=== PATIENT | male | born 1970 | race Caucasian/White ===

== ENCOUNTER 2018-07-17 11:54 | Outpatient (CLI) | payer MEDICARE, SELFPAY ==
[2018-07-17 12:45] LABS: VALPROIC ACID 74.3 ug/mL (50-100)
[2018-07-17 15:11] LABS: Abs Immature Grans 0.04 k/cumm (0.0-0.09); HGB 16.8 g/dL (13.5-17.5); Mean Corpuscular Hemoglobin 31.2 pg (27.0-33.0); Mean Corpuscular Volume 89.2 fL (80-95); Mean Platelet Volume 10.9 fL (8.0-11.0); Platelet Count 285 x1000/uL (130-400); RBC 5.38 m/cumm (4.50-6.00); RBC Distribution Width 14.1 % (11.8-14.1); White Blood Cell Count 17.41 k/cumm (4.4-10.8)
[2018-07-17 15:30] LABS: ALT 26 U/L (12-78); AST 20 U/L (15-37); Alkaline Phosphatase 133 U/L (46-116); Bilirubin, Direct 0.11 mg/dL (0.00-0.20); Bilirubin, Total 0.6 mg/dL (0.2-1.0); Total Protein 7.7 g/dL (6.4-8.2)
[2018-07-17 15:37] LABS: Absolute Eosinophil Count 0.87 k/cumm (0.0-0.7); Absolute Monocyte Count 1.39 k/cumm (0.11-0.7); Absolute Neutrophil Count 11.14 k/cumm (1.2-6.7); Atypical Lymphocytes % 3; Diff Comment Manual Differential; RBC Morphology Normal
== END 2018-07-17 12:14 ==
PROVIDERS: PCP General Practice; Visit Provider Nurse Practitioner Psychiatric/Mental Health
DX: F10.21 Alcohol dependence, in remission (principal); Z51.81 Encounter for therapeutic drug level monitoring; Z79.899 Other long term (current) drug therapy
CPT/HCPCS: 36415; 80076; 80164; 85025

== ENCOUNTER 2018-07-30 16:40 | Inpatient (IN) | payer MEDICARE, SELFPAY ==
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
[2018-07-30 17:19] VITALS: BP 156/116; PULSE 126; RESP 22; TEMP 37.1; O2SAT 100
[2018-07-30 17:27] LABS: Abs Immature Grans 0.05 k/cumm (0.0-0.09); Absolute Basophil Count 0.07 k/cumm (0.0-0.2); Absolute Eosinophil Count 0.17 k/cumm (0.0-0.7); Absolute Lymphocyte Count 3.01 k/cumm (1.2-3.4); Absolute Monocyte Count 1.51 k/cumm (0.11-0.7); Basophils % 0.5; Eosinophils % 1.2; HCT 51.3 % (40.0-50.0); HGB 18.4 g/dL (13.5-17.5); Immature Grans % 0.4; Lymphocytes % 21.7; Mean Corp. HGB Concentration 35.9 g/dL (32.0-36.0); Mean Corpuscular Hemoglobin 31.1 pg (27.0-33.0); Mean Corpuscular Volume 86.7 fL (80-95); Mean Platelet Volume 10.5 fL (8.0-11.0); Monocytes % 10.9; Neutrophils % 65.3; Platelet Count 399 x1000/uL (130-400); RBC 5.92 m/cumm (4.50-6.00); RBC Distribution Width 13.8 % (11.8-14.1); White Blood Cell Count 13.89 k/cumm (4.4-10.8)
[2018-07-30 17:35] LABS: Absolute Neutrophil Count 9.07 k/cumm (1.2-6.7)
[2018-07-30 17:36] LABS: Diff Comment Diff Reviewed
[2018-07-30 17:37] LABS: VALPROIC ACID 26.7 ug/mL (50-100)
[2018-07-30 17:45] LABS: ALT 25 U/L (12-78); AST 23 U/L (15-37); Albumin 4.7 g/dL (3.4-5.0); Alkaline Phosphatase 126 U/L (46-116); Anion Gap 12.2 mmol/L (3-11); BUN 11 mg/dL (7-18); Bilirubin, Total 0.7 mg/dL (0.2-1.0); CO2 27.8 mmol/L (21.0-32.0); CREATININE 1.09 mg/dL (0.70-1.30); Calcium 10.4 mg/dL (8.5-10.1); Chloride 97 mmol/L (98-107); Glucose 128 mg/dL (70-100); Potassium 3.7 mmol/L (3.5-5.1); Sodium 137 mmol/L (136-145); TSH (W/Ref FT4) 1.82 uIU/mL (0.358-3.74); Total Protein 9.1 g/dL (6.4-8.2)
[2018-07-30 17:58] LABS: Salicylate 8.1 mg/dL (2.8-20.0)
[2018-07-30 18:03] LABS: ETHANOL BLOOD < 3.0 mg/dL (<3)
[2018-07-30 18:05] LABS: Acetaminophen < 2 ug/mL (10-30)
[2018-07-30] MEDS: Haloperidol 5 MG/ML VIAL (19:50)
[2018-07-30] MEDS: LORazepam 2 MG/ML VIAL (19:50)
[2018-07-30] MEDS: diphenhydrAMINE 50 MG/ML VIAL 25 MG IM (19:51)
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
[2018-07-30] MEDS: Divalproex 500 MG TABEC 1000 MG PO (20:00)
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
--- NOTE | 2018-07-31 00:21 | NUR.NOTE ---
Nursing Note: recieved report on pt about 2350 from ab avendaño
--- NOTE | 2018-07-31 07:36 | PDOC.ERCMPRO ---
Care Management Progress Note [phone] requested phone use. Discussed with Dr. Alex Baca and he is in agreement with patient having phone to call girlfriend and son. New Care plan distributed to appropriate care team. At this time, waiting on [facility] for placement. SAFETY PLAN: Emergency Department, BS 07/31/18 at 0730 1. Will remain on suicide precautions. In Paper Scrubs. 2. Will remain in room under direct supervision of one-on-one staff at all times provided by CPSO, NANCY, COUNTER CASER insemination worker. 3. May have paper cups, plates, finger foods. No spoon at this time. 4. Follow [facility] Management of the Admitted Behavioral Health Patient policy. 5. Comfort bath system only. 6. No personal belongings 7. No visitors at this time. 8. No activities at this time but may have coloring, paper, crayons at the discretion of the clinical staff.. 9. Bathroom privileges may go to the bathroom with staff escort. 10. Will remain in the ED as there are no beds available at this time. Housekeeping Supervisor will determine transfer to / based on bed availability and staffing. 11. Patient may have phone privileges to call girlfriend and son. 12. Due to INVOLUNTARY status, the patient must remain in the hospital. Second Certification will be scheduled with [facility] Frontline Cosmetic Sales Consultant will continue seeking placement. Please contact the Bedspread Inspector Car Lubricator ([phone]) and [facility] Cosmetic Sales Consultant ([phone]) for any needed changes in the Safety Plan. Safety plan has been provided to interdepartmental care team including Clinical Coordinator, Nursing Musculoskeletal Physician.
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
--- NOTE | 2018-07-31 10:11 | PDOC.ERCMPRO ---
Care Management Progress Note 07/31-This CM reached out to facilities for placement. [facility]ice-phone [phone] Spoke with Anne. Anne states that they have one bed on the LGBTQ Unit and is willing to accept referral. Referral faxed at 0915 this am. If they can accept patient, discussion will have to happen about [facility] being on the unit. [facility] -[phone], Spoke with Alhaji. Alhaji states there are no beds available. [phone], spoke with Matthias, no beds today. [phone], Spoke with Jeanette, no beds today. [phone], spoke with Allyson, no beds and their ED is full. [phone], Spoke with Kelsea, no beds. [facility] is here on EE status. Unclear of time of second cert. Dr. Lambert aware of the above.
--- NOTE | 2018-07-31 10:14 | CMPROGNOTE_ITS ---
Care Management Progress Note 07/31-This CM reached out to facilities for placement. Candice-phone [phone] Spoke with Anne. Anne states that they have one bed on the LGBTQ Unit and is willing to accept referral. Referral faxed at 0915 this am. If they can accept patient, discussion will have to happen about [facility] being on the unit. [facility] -[phone], Spoke with Alhaji. Alhaji states there are no beds available. [phone], spoke with Matthias, no beds today. [phone], Spoke with Jeanette, no beds today. [phone], spoke with Allyson, no beds and their ED is full. [phone], Spoke with Kelsea, no beds. [facility] is here on EE status. Unclear of time of second cert. Dr. Lambert aware of the above.
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
[2018-07-31] MEDS: METHYLPHENIDATE 5 MG TAB PO (11:39)
[2018-07-31] MEDS: Nicotine 14 MG/24 HR PATCH TD (12:09)
--- NOTE | 2018-07-31 15:37 | PDOC.ERCMPRO ---
- If Service Date Differs Date of service: 07/31/18 Time of Service: 15:38 Care Management Progress Note S/O:CM met with Preston at the bedside he is alert and restless during his encounter with CM. Per his primary nurse he has been more escalated since phone interaction this afternoon with significant other and DCF. Preston remains in the ED as an involuntary patient at this time. He was agitated during the second certification. During the interaction with psychiatrist Preston often would not answer the questions, or answered inappropriately. He refused to share information related to his mental health or medications with psychiatrist. Preston states that his SO is a epic kaleidoscope analyst caller and that he did not do anything wrong. He states he wants to return home, and that his significant other is waiting for him. He states several times that he wants to hug his son. Preston was notified that the second cert was approved and that he will remain at [facility] in the ED. Preston immediately stands up and heads toward the door in the room attempting to step out of the room. CM explained to Pt that he will need to remain in his room at this time, and reinforced safety plan with the Pt. CM met with psychiatrist over video prior to and after assessment. CM reviewed current medications with the psychiatric provider and labs. Provider reports that the patient is in need of stabilization at a psychiatric facility when a bed becomes available. Second Cert approved at this time. INVOLUNTARY FOR INPATIENT PSYCHIATRIC STABILIZATION. . EE completed and he is now on involuntary status. High risk for elopement and high risk for aggressive behaviors. Javier is unpredictable in terms of his response at this time and cannot agree to inpatient psychiatric treatment but is at risk for harming himself and others. The following have contributed to the updated safety plan: Alistair Lozano RN Experimental Mechanic, Saloni Maguire RN primary, , and Dhara COOK crisis, and this feature writer. Date and time:07/31/18 1730 Safety plan has been established with care team, to adhere to patient goals, identify restrictions based on behavioral status, address nutrition, and determine allowed personal belongings, tools for hygiene and personal care. Determine level of activity including ambulation, level of supervision, visitors, and determine privileges based on behaviors and level of engagement by pt. Otis dubose not able to participate at this time SAFETY PLAN: ED Room #5 1. Will remain on suicide precautions. In Paper Scrubs. 2. Will remain in room under direct supervision of one-on-one staff at all times provided by CPSO, NANCY, MEDICINE AND HEALTH SERVICE MANAGER mold making plastics sheets supervisor. 3. May have paper cups, plates, finger foods, a metal spoon may be provided and accounted for at the end of the meal. 4. Follow [facility] Management of the Admitted Behavioral Health Patient policy. 5. Comfort bath system only. 6. No personal belongings, except nicotine inhaler at the bedside. 7. No visitors at this time. 8. No activities at this time but may have coloring, paper, crayons at the discretion of the clinical staff.. 9. Bathroom privileges may go to the bathroom with staff escort. 10. Will remain in the ED. 11.No telephone at this time. In the event of an emergent phone call it will be supervised by staff. 12. Due to INVOLUNTARY status, the patient must remain in the hospital. Second Cert was completed and approved on 07/31/18. Paperwork will be faxed to [facility] ED. Candice is reviewing the referral no bed available at this time. [facility] will continue to search for placement and fax referrals to [place] facilities. Safety plan will be updated daily. Please contact sales and production manager CM and [facility] Crisis, for change in status and review of safety plan. Once a bed is available and patient is to be discharged [facility] will arranged transportation via bottle tester to receiving facility.
--- NOTE | 2018-07-31 15:44 | NUR.NOTE ---
Nursing Note: Noted patient was becoming increasingly anxious and agitated on phone. Had requested phone to call his significant other, per careplan patient was allowed phone privileges to his girlfriend. This scribe asked for the phone and it required coaxing from patient to allow me to have the phone back. Patient stated he wants to talk to you. This scribe answered the phone and the male introduced himself as a DCF employee who was investigating at the patient's home. The patient's girlfriend had been talking to the patient and became upset, handing the phone to the DCF employee. [facility] with questions regarding the situation, but this scribe informed him that no information could be given. He insisted on speaking to somebody, this scribe transferred the phone call to . MD notified, care management notified and careplan will be updated to suspend phone privileges. Patient took off his nicotine patch that had been placed on his R arm. Continues to use the nicotrol inhaler.
[2018-07-31] MEDS: Divalproex 500 MG TABEC 1000 MG PO (21:39)
[2018-07-31] MEDS: Divalproex Sodium 500 MG TAB.ER.24H 1000 MG PO (21:40)
[2018-07-31] MEDS: Mirtazapine 15 MG TAB 30 MG PO (21:40)
[2018-07-31] MEDS: QUEtiapine 100 MG TAB PO (21:48)
--- NOTE | 2018-07-31 21:54 | NUR.NOTE ---
Nursing Note: gave pt his night time meds of 1000mg of depakote, 30 mg of remeron, but he refused his 100 mg tab of seroquel, and was give 10mg cartidge of nicotine
--- NOTE | 2018-08-01 00:50 | NUR.NOTE ---
Nursing Note: gave pt a 10 mg nicotine
--- NOTE | 2018-08-01 05:46 | NUR.NOTE ---
Nursing Note: pt slept through most of the was up about 0500 and wanted coffee and a nicotrol , then asked for morning meds,
[2018-08-01] MEDS: Methylphenidate 10 MG TAB 5 MG PO (05:56)
[2018-08-01] MEDS: LORazepam 2 MG/ML VIAL (09:00)
[2018-08-01 14:24] LABS: Bilirubin Negative (Negative); Blood Negative (Negative); Clarity Clear; Glucose Negative (Negative); Ketones Trace mg/dL (Negative); Leukocyte Esterase Negative (Negative); Nitrite Negative (Negative); Specific Gravity 1.015 (1.005-1.025); Urobilinogen 0.2 EU/dL (Up TO 0.2); pH 6.5 (5-8)
[2018-08-01 14:37] LABS: *AMPHETAMINES SCREEN URINE Negative (Negative); *BARBITURATES SCREEN URINE Negative (Negative); *BENZODIAZEPINES SCREEN URINE Negative (Negative); Cannabinoids THC POSITIVE (Negative); Cocaine Screen,Urine Negative (Negative); METHADONE URINE SCREEN Negative (Negative); OPIATES URINE SCREEN Negative (Negative)
[2018-08-01] MEDS: LORazepam 1 MG TAB 2 MG PO (14:37)
[2018-08-01 14:39] LABS: Tricyclic Antidepressants Negative (Negative)
--- NOTE | 2018-08-01 14:58 | ED.GENADUL_ITS ---
Discharge Plan Disposition Patient Disposition: [facility] INPATIENT Condition: Stable Discharge Details Chief Complaint: PsychEval Clinical Impression: Psychotic episode Reason For Visit: ACUTE PSYCHOSIS Admit Date/Time: 08/02/18 18:18 Admit Provider: Rickey Barajas Attending Provider: Rickey Barajas Primary Care Provider: Rickey Sher ED Provider: Usha Bangura Discharge Data Discharge Date/Time-TO BE ENTERED AT DEPARTURE: 08/02/18 19:15 Medical Decision Making <Jamarcus Lambert DO - Last Filed: 08/03/18 14:54> The patient has been here for 48 hours. I have received him on 2 separate sinus. Multiple reassessments from mental health, including his second certification continue to recommend inpatient psychiatric hospitalization and admission. The patient has been redirectable here, but has had his doses of home medication, in addition to his doses of occasional Ativan to help settle his nerves and notable agitation. There continues to be no bed placement options available in reassessment today at noon. He is hopeful that a bed will open up on Friday. Patient will be signed out to my colleague Dr. Ramirez if new bed placement is not found. HPI <Jamarcus Lambert DO - Last Filed: 08/03/18 14:54> General Date/Time Provider Initiated Documentation: 07/30/18 16:47 . Related Data Home Medications Medication Instructions Recorded Confirmed divalproex 1,000 mg PO HS 06/07/15 08/08/16 divalproex 500 mg PO DAILY 06/07/15 08/02/18 mirtazapine [Remeron] 30 mg PO HS 06/07/15 08/02/18 Marijuana 1 ea IN DAILY 05/30/16 08/08/16 meloxicam 15 mg PO DAILY PRN PRN #30 tablet 05/30/16 08/08/16 folic acid 1 mg PO DAILY tab-cap 07/17/16 08/08/16 acetylcysteine 600 mg PO DAILY 08/08/16 08/08/16 levomefolate calcium 15 mg PO DAILY 08/08/16 08/08/16 aspirin 325 mg PO DAILY tab-cap 08/15/16 methylphenidate HCl [Ritalin] 5 mg PO BID 08/02/18 08/02/18 Previous Rx's Medication Instructions Recorded meloxicam 15 mg PO DAILY PRN PRN #30 tablet 05/30/16 Allergies Allergy/AdvReac Type Severity Reaction Status Date / Time No Known Allergies Allergy Unverified 07/30/18 17:28 General Stated Complaint: PsychEval ROSA: 2 PFSH <Jamarcus Lambert DO - Last Filed: 08/03/18 14:54> Social History Smoking/Tobacco Use Status: Never Alcohol Intake: never Drug use: Daily Substance use type: marijuana Additional Social history: unable to assess Course <Jamarcus Lambert DO - Last Filed: 08/03/18 14:54> Vital Signs Temperature 37.1 C 07/30/18 17:19 Pulse 126 H 07/30/18 17:19 Respiratory Rate 22 07/30/18 17:19 Blood Pressure 156/116 H 07/30/18 17:19 Pulse Oximetry 100 07/30/18 17:19 Temperature 37.1 C 07/30/18 17:19 Temperature Source Temporal Artery Scan 07/30/18 17:19 Pulse 126 H 07/30/18 17:19 Respiratory Rate 22 07/30/18 17:19 Respiratory Effort Non-Labored 07/30/18 17:19 Blood Pressure 156/116 H 07/30/18 17:19 Blood Pressure Position Standing 07/30/18 17:19 Pulse Oximetry 100 07/30/18 17:19 Oxygen Delivery Method Room Air 07/30/18 17:19 Oxygen Flow Rate 0 07/30/18 17:19 Pain Level 0 07/30/18 17:19 Lab/Test Results Lab/Test Results: Laboratory Tests Range/Units 07/30/18 07/30/18 07/30/18 17:19 17:19 17:19 WBC (4.4-10.8) k/cumm 13.89 H RBC (4.50-6.00) m/cumm 5.92 Hgb (13.5-17.5) g/dL 18.4 H Hct (40.0-50.0) % 51.3 H MCV (80-95) fL 86.7 MCH (27.0-33.0) pg 31.1 MCHC (32.0-36.0) g/dL 35.9 RDW (11.8-14.1) % 13.8 Plt Count (130-400) x1000/uL 399 D MPV (8.0-11.0) fL 10.5 Immature Gran % 0.4 Neutrophils % 65.3 Lymphocytes % 21.7 Monocytes % 10.9 Eosinophils % 1.2 Basophils % 0.5 Absolute Neutrophils (1.2-6.7) k/cumm 9.07 H Absolute Lymphocytes (1.2-3.4) k/cumm 3.01 Absolute Monocytes (0.11-0.7) k/cumm 1.51 H Absolute Eosinophils (0.0-0.7) k/cumm 0.17 Absolute Basophils (0.0-0.2) k/cumm 0.07 Differential Comment Diff reviewed Sodium (136-145) mmol/L 137 Potassium (3.5-5.1) mmol/L 3.7 Chloride (98-107) mmol/L 97 L Carbon Dioxide (21.0-32.0) mmol/L 27.8 Anion Gap (3-11) mmol/L 12.2 H BUN (7-18) mg/dL 11 Creatinine (0.70-1.30) mg/dL 1.09 Estimated GFR/1.73 m2 (mL/min/1.73m2) >= 60.00 Glucose (70-100) mg/dL 128 H Calcium (8.5-10.1) mg/dL 10.4 H Total Bilirubin (0.2-1.0) mg/dL 0.7 AST (15-37) U/L 23 ALT (12-78) U/L 25 Alkaline Phosphatase (46-116) U/L 126 H Total Protein (6.4-8.2) g/dL 9.1 H Albumin (3.4-5.0) g/dL 4.7 TSH (0.358-3.74) uIU/mL 1.82 Urine Color (Yellow) Urine Clarity Urine pH (5-8) Ur Specific [place] (1.005-1.025) Urine Protein (Negative) mg/dL Urine Ketones (Negative) mg/dL Urine Blood (Negative) Urine Nitrite (Negative) Urine Bilirubin (Negative) Urine Urobilinogen (Up TO 0.2) EU/dL Ur Leukocyte Esterase (Negative) Urine Glucose (Negative) mg/dL Salicylates (2.8-20.0) mg/dL 8.1 Urine Opiates Screen (Negative) Urine Methadone Screen (Negative) Acetaminophen (10-30) ug/mL < 2 L Ur Barbiturates Screen (Negative) Total Valproic Acid (50-100) ug/mL Ur Tricyclics Screen (Negative) Ur Amphetamines Screen (Negative) U Benzodiazepines Scrn (Negative) Urine Cocaine Screen (Negative) Ur THC Screen (Negative) Ethyl Alcohol (<3) mg/dL < 3.0 Range/Units 07/30/18 08/01/18 08/01/18 17:19 14:15 14:15 WBC (4.4-10.8) k/cumm RBC (4.50-6.00) m/cumm Hgb (13.5-17.5) g/dL Hct (40.0-50.0) % MCV (80-95) fL MCH (27.0-33.0) pg MCHC (32.0-36.0) g/dL RDW (11.8-14.1) % Plt Count (130-400) x1000/uL MPV (8.0-11.0) fL Immature Gran % Neutrophils % Lymphocytes % Monocytes % Eosinophils % Basophils % Absolute Neutrophils (1.2-6.7) k/cumm Absolute Lymphocytes (1.2-3.4) k/cumm Absolute Monocytes (0.11-0.7) k/cumm Absolute Eosinophils (0.0-0.7) k/cumm Absolute Basophils (0.0-0.2) k/cumm Differential Comment Sodium (136-145) mmol/L Potassium (3.5-5.1) mmol/L Chloride (98-107) mmol/L Carbon Dioxide (21.0-32.0) mmol/L Anion Gap (3-11) mmol/L BUN (7-18) mg/dL Creatinine (0.70-1.30) mg/dL Estimated GFR/1.73 m2 (mL/min/1.73m2) Glucose (70-100) mg/dL Calcium (8.5-10.1) mg/dL Total Bilirubin (0.2-1.0) mg/dL AST (15-37) U/L ALT (12-78) U/L Alkaline Phosphatase (46-116) U/L Total Protein (6.4-8.2) g/dL Albumin (3.4-5.0) g/dL TSH (0.358-3.74) uIU/mL Urine Color (Yellow) Yellow Urine Clarity Clear Urine pH (5-8) 6.5 Ur Specific [place] (1.005-1.025) 1.015 Urine Protein (Negative) mg/dL Negative Urine Ketones (Negative) mg/dL Trace H Urine Blood (Negative) Negative Urine Nitrite (Negative) Negative Urine Bilirubin (Negative) Negative Urine Urobilinogen (Up TO 0.2) EU/dL 0.2 Ur Leukocyte Esterase (Negative) Negative Urine Glucose (Negative) mg/dL Negative Salicylates (2.8-20.0) mg/dL Urine Opiates Screen (Negative) Negative Urine Methadone Screen (Negative) Negative Acetaminophen (10-30) ug/mL Ur Barbiturates Screen (Negative) Negative Total Valproic Acid (50-100) ug/mL 26.7 L Ur Tricyclics Screen (Negative) Negative Ur Amphetamines Screen (Negative) Negative U Benzodiazepines Scrn (Negative) Negative Urine Cocaine Screen (Negative) Negative Ur THC Screen (Negative) Positive Ethyl Alcohol (<3) mg/dL Sign Out <Jamarcus Lambert DO - Last Filed: 08/03/18 14:54> Sign Out Data: Sign Out Comment: Patient currently stable, no placement available, mental health will reassess in the morning. [facility] and is a flight risk. His chemical and physical restraints as needed Last updated by Jamarcus Lambert DO at 07/30/18 22:04 Sign Out Comment: Awaiting involuntary mental health placement. Awaiting pharmacy for prescribed scheduled meds. Follow-up with mental health. Maintain 1:1 observation. Patient is flight risk. Last updated by Alex Baca MD at 07/31/18 08:44 Sign Out Comment: Patient currently stable, no placement available, mental health will reassess in the morning, [facility], and is a flight risk. Use chemical and physical restraints as needed. Patient has excepted night meds Last updated by Jamarcus Lambert DO at 07/31/18 21:56 Sign Out Comment: Stable with no major issues overnight. Second certification completed. Patient pending involuntary psychiatric admission. Last updated by Elkin Ramirez MD at 08/01/18 07:47 Sign Out Comment: Patient has remained stable here in the ED. No placement available, mental health will reassess tomorrow morning. Patient is a flight risk. Last updated by Jamarcus Lambert DO at 08/01/18 21:35 Sign Out Comment: Patient continues to be held in the ED while waiting psychiatric bed. He took his nighttime meds without issue. He has tested limits this morning but has been redirectable and cooperative. Continues to have one-on-one observation. Last updated by Elkin Ramirez MD at 08/02/18 07:53
--- NOTE | 2018-08-01 16:13 | PDOC.ERCMPRO ---
- If Service Date Differs Date of service: 08/01/18 Time of Service: 16:13 Care Management Progress Note Preston continues as involuntary admission awaiting placement for psychiatric stabilization. Preston is resting when CM arrives to the ED, he was not disturbed. CM reviewed plan with primary nurse and mental health [facility]. There is no changes in safety plan today. He remains in the ED requiring CPSO. CM contacted [facility] there is no bed today and per admissions anticipate there will be no availability over the weekend. Admissions reports they will reevaluate on Friday. Per nursing Preston is active at times however he can be re-directed. He did receive IM Ativan for symptom management per Nursing. Per report he is eating and taking his regular medications. CM provided update bed status to the ED staff and to nursing supervisor assembly room. INVOLUNTARY FOR INPATIENT PSYCHIATRIC STABILIZATION. . EE completed and he is now on involuntary status. High risk for elopement and high risk for aggressive behaviors. Javier is unpredictable in terms of his response at this time and cannot agree to inpatient psychiatric treatment but is at risk for harming himself and others. Date:08/01/18 Safety plan has been established with care team, to adhere to patient goals, identify restrictions based on behavioral status, address nutrition, and determine allowed personal belongings, tools for hygiene and personal care. Determine level of activity including ambulation, level of supervision, visitors, and determine privileges based on behaviors and level of engagement by pt. Otis dubose not able to participate at this time SAFETY PLAN: ED Room #5 1. Will remain on suicide precautions. In Paper Scrubs. 2. Will remain in room under direct supervision of one-on-one staff at all times provided by CPSO, SHALE PROCESSING TECHNICIAN, SURGICAL ASSIST corporate accountant. 3. May have paper cups, plates, finger foods, a metal spoon may be provided and accounted for at the end of the meal. 4. Follow [facility] Management of the Admitted Behavioral Health Patient policy. 5. Comfort bath system only. 6. No personal belongings, except nicotine inhaler at the bedside. 7. No visitors at this time. 8. No activities at this time but may have coloring, paper, crayons at the discretion of the clinical staff.. 9. Bathroom privileges may go to the bathroom with staff escort. 10. Will remain in the ED. 11.No telephone at this time. In the event of an emergent phone call it will be supervised by staff. 12. Due to INVOLUNTARY status, the patient must remain in the hospital. Second Cert was completed and approved on 07/31/18. Candice is reviewing the referral no bed available at this time. [facility] will continue to search for placement and fax referrals to [place] facilities. Safety plan will be updated daily. Please contact injection maintenance technician and [facility] Crisis, for change in status and review of safety plan. Once a bed is available and patient is to be discharged [facility] will arranged transportation via clinical trials data coordinator to receiving facility.
--- NOTE | 2018-08-01 16:21 | CMPROGNOTE_ITS ---
- If Service Date Differs Date of service: 08/01/18 Time of Service: 16:13 Care Management Progress Note Preston continues as involuntary admission awaiting placement for psychiatric stabilization. Preston is resting when CM arrives to the ED, he was not disturbed. CM reviewed plan with primary nurse and mental health [facility]. There is no changes in safety plan today. He remains in the ED requiring CPSO. CM contacted [facility] there is no bed today and per admissions anticipate there will be no availability over the weekend. Admissions reports they will reevaluate on Friday. Per nursing Preston is active at times however he can be re-directed. He did receive IM Ativan for symptom management per Nursing. Per report he is eating and taking his regular medications. CM provided update bed status to the ED staff and to nursing line installation supervisor. INVOLUNTARY FOR INPATIENT PSYCHIATRIC STABILIZATION. . EE completed and he is now on involuntary status. High risk for elopement and high risk for aggressive behaviors. Javier is unpredictable in terms of his response at this time and cannot agree to inpatient psychiatric treatment but is at risk for harming himself and others. Date:08/01/18 Safety plan has been established with care team, to adhere to patient goals, identify restrictions based on behavioral status, address nutrition, and determine allowed personal belongings, tools for hygiene and personal care. Determine level of activity including ambulation, level of supervision, visitors, and determine privileges based on behaviors and level of engagement by pt. Otis dubose not able to participate at this time SAFETY PLAN: ED Room #5 1. Will remain on suicide precautions. In Paper Scrubs. 2. Will remain in room under direct supervision of one-on-one staff at all times provided by CPSO, PRODUCT MARKETING COORDINATOR, DRAG DOWN academic director. 3. May have paper cups, plates, finger foods, a metal spoon may be provided and accounted for at the end of the meal. 4. Follow [facility] Management of the Admitted Behavioral Health Patient policy. 5. Comfort bath system only. 6. No personal belongings, except nicotine inhaler at the bedside. 7. No visitors at this time. 8. No activities at this time but may have coloring, paper, crayons at the discretion of the clinical staff.. 9. Bathroom privileges may go to the bathroom with staff escort. 10. Will remain in the ED. 11.No telephone at this time. In the event of an emergent phone call it will be supervised by staff. 12. Due to INVOLUNTARY status, the patient must remain in the hospital. Second Cert was completed and approved on 07/31/18. Candice is reviewing the referral no bed available at this time. [facility] will continue to search for placement and fax referrals to [place] facilities. Safety plan will be updated daily. Please contact electronics technology instructor and [facility] Crisis, for change in status and review of safety plan. Once a bed is available and patient is to be discharged [facility] will arranged transportation via geospatial technologist to receiving facility.
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
[2018-08-01] MEDS: Mirtazapine 15 MG TAB 30 MG PO (21:58)
[2018-08-01] MEDS: Divalproex Sodium 500 MG TAB.ER.24H 1000 MG PO (21:58)
[2018-08-01] MEDS: QUEtiapine 100 MG TAB PO (22:12)
--- NOTE | 2018-08-01 22:12 | NUR.NOTE ---
Nursing Note: pt took night meds except serquel he refused to take this med stated he didn't need it with the remeron and depakote
--- NOTE | 2018-08-02 00:20 | NUR.NOTE ---
Nursing Note: pt given more caffeine free drinks x 2. Pt pacing in room- intense eye contact. Will continue to monitor. Pt remains 1:1 direct observation with CPSO.
--- NOTE | 2018-08-02 06:44 | NUR.NOTE ---
Nursing Note: pt woke up around 0400 and tried to demand his ritalin that is due at 0830, pt was informed was not getting the med early, he tried a few times and tried asking the other nurse but it did not work, he did stop asking, other then that has been a good night,
--- NOTE | 2018-08-02 06:49 | NUR.NOTE ---
Nursing Note: pt recieved his breakfast
[2018-08-02] MEDS: METHYLPHENIDATE 5 MG TAB PO ×2 (07:45→14:01)
[2018-08-02 08:29] VITALS: BP 141/101; PULSE 102; RESP 18; TEMP 36.6; O2SAT 97
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
[2018-08-02] MEDS: LORazepam 1 MG TAB PO (11:40)
--- NOTE | 2018-08-02 18:40 | HPE_ITS ---
Date of service: 08/02/18 Time of Service: 18:40 Assessment and Plan (1) Psychosis: Start date: 07/30/18 Current visit: Yes Status: Acute This is a 47-year-old gentleman to the ED 07/30/2018 for increasing psychotic behavior off his usual medications for his schizoaffective disorder. He was kept involuntarily because of behavior endangering himself and others. He has improved but continues to be agitated at times requiring medication though he now is taking his oral medications voluntarily. He is pending placement for inpatient psychiatric care and will be observed with one-on-one observation and 24-hour attendance. He will be given Ativan as needed and his usual medications orally as long as he is agreeing to take these medications. (2) Schizoaffective disorder: Current visit: Yes Status: Chronic Continue his usual oral medications as the patient allows. Continue mental health consultation with involuntary placement for inpatient psychiatric care. History of Present Illness Chief Complaint: Psychosis patient not taking medications for schizoaffective disorder Narrative: This is a 47-year-old gentleman who was brought to the [facility] ED 07/30/2018 for decompensation of his schizophrenic disorder not taking his Depakote. His mental health workers notice more aggressive behavior with declining mood and was noted to be psychotic with pressured speech and was a danger to himself. In the ED during his stay for medical clearance he had no evidence of other issues causing this behavior. He escalated requiring IM in jections of Benadryl, Haldol and Ativan the evening of his first day in the ED. As he remained in the ED he had another less severe escalation and agreed to take oral Ativan with the patient becoming more calm. He has been agreed to take his Depakote which is his chronic medical therapy. He also has been taking his usual oral meds with the medication list reviewed upon this admission. He is awaiting placement to inpatient psych and came to the medical floor for observation until this can be accomplished. He has on one-to-one observation with attendance 24 hours a day. When I interviewed the patient he was polite and treatment and became agitated with conversation stated that I was trying to confuse. We had minimal conversation or interaction. Review of Systems Review of Systems Unobtainable due to mental condition [facility] Social History Smoking/Tobacco Use Status: Never Alcohol Intake: never Drug use: Daily Substance use type: marijuana Additional Social history: unable to assess Meds Home Medications Medication Instructions Recorded Confirmed Type divalproex 1,000 mg PO HS 06/07/15 08/08/16 History divalproex 500 mg PO DAILY 06/07/15 08/02/18 History mirtazapine [Remeron] 30 mg PO HS 06/07/15 08/02/18 History Marijuana 1 ea IN DAILY 05/30/16 08/08/16 History meloxicam 15 mg PO DAILY PRN PRN #30 tablet 05/30/16 08/08/16 Rx folic acid 1 mg PO DAILY tab-cap 07/17/16 08/08/16 History acetylcysteine 600 mg PO DAILY 08/08/16 08/08/16 History levomefolate calcium 15 mg PO DAILY 08/08/16 08/08/16 History aspirin 325 mg PO DAILY tab-cap 08/15/16 History methylphenidate HCl [Ritalin] 5 mg PO BID 08/02/18 08/02/18 History Allergies Allergy/AdvReac Type Severity Reaction Status Date / Time No Known Allergies Allergy Unverified 07/30/18 17:28 Exam Narrative Exam Narrative: General: Patient is pacing his room inhaling on a nicotine inhaler but stops to approach me when I enter the room. He is not oriented to time but appears to know he is in the hospital and that I am a physician. He is slightly agitated with pressured speech. HEENT: Normocephalic with eyes rolling pupils equal and reactive to light symmetrically, sclera anicteric and extraocular movement intact, ears normal, or mucosa pink and moist with fair dentition but discolored teeth. Neck: Supple without JVD. Back: Normal posture. Lungs: Clear to auscultation with no focalizing rales or rhonchi, normal respiratory expiratory phase ratio and no expiratory wheeze. Heart: Slightly tachycardic during the exam with normal S1 and S2, no murmurs or gallops. Abdomen: Scaphoid, soft nontender. Genitalia and rectal: Deferred Extremities: Without clubbing cyanosis or edema. Patient moves all joints well. Neuro: Cranial nerves II through XII grossly intact, no focalizing motor deficits. Skin: Pale, warm and dry. Psych: Slightly agitated affect with intense eye contact, thought processes with tangential thoughts and conversation which is non-fluent. He engages in conversation but is easily distracted. Pressured speech and moderately anxious with confrontation. Results Labs : 07/30/18 17:19 07/30/18 17:19 Urine drug screen positive for THC TSH 1.82 which is normal Valproic acid level 26.7 which is low Last Vital Signs Temp 36.6 C 08/02/18 08:29 Pulse 102 H 08/02/18 08:29 Resp 18 08/02/18 08:29 BP 141/101 H 08/02/18 08:29 Pulse Ox 97 08/02/18 08:29
--- NOTE | 2018-08-02 18:53 | PDOC.ERCMPRO ---
- If Service Date Differs Date of service: 08/02/18 Time of Service: 18:53 Care Management Progress Note Preston continues as involuntary admission awaiting placement for psychiatric stabilization. .CM reviewed plan with primary nurse and mental health [facility]. There is no changes in safety plan today. He being admitted to the medical surgical unit and continues to require CPSO. [facility] and per admissions anticipate there will be no availability over the weekend. Admissions reports they will reevaluate on Friday. Per nursing Preston is active at times however he can be re-directed. Per report he is eating and taking his regular medications. CM met with ED provider and reviewed plan and bed availability. Decision was made to admit to the inpatient unit by MD and RN supervisor feed house. Safety plan updated to reflect level of care change. Date:08/02/2018 Safety plan has been established with care team, to adhere to patient goals, identify restrictions based on behavioral status, address nutrition, and determine allowed personal belongings, tools for hygiene and personal care. Determine level of activity including ambulation, level of supervision, visitors, and determine privileges based on behaviors and level of engagement by pt. Otis dubose not able to participate at this time SAFETY PLAN: 1. Will remain on suicide precautions. In Paper Scrubs. 2. Will remain in room under direct supervision of one-on-one staff at all times provided by CPSO, SENIOR INTERNATIONAL TAX MANAGER, TEACHING MUSIC LESSONS stack supervisor. 3. May have paper cups, plates, finger foods, a metal spoon may be provided and accounted for at the end of the meal. 4. Follow [facility] Management of the Admitted Behavioral Health Patient policy. 5. Comfort bath system only. 6. No personal belongings, except nicotine inhaler at the bedside. 7. No visitors at this time. 8. Activities include, TV, coloring, paper, crayons at the discretion of the clinical staff.. 9..No telephone at this time. In the event of an emergent phone call it will be supervised by staff INVOLUNTARY FOR INPATIENT PSYCHIATRIC STABILIZATION. EE completed and he remains on involuntary status. High risk for elopement and high risk for aggressive behaviors. Javier is unpredictable in terms of his response at this time and cannot agree to inpatient psychiatric treatment but is at risk for harming himself and others. 10. Due to INVOLUNTARY status, the patient must remain in the hospital. Second Cert was completed and approved on 07/31/18. Candice is reviewing the referral no bed available at this time. [facility] will continue to search for placement and fax referrals to [place] facilities. Safety plan will be updated daily. Please contact loss prevention specialist CM and [facility] Crisis, for change in status and review of safety plan. Once a bed is available and patient is to be discharged [facility] will arranged transportation via senior treasury analyst to receiving facility.
--- NOTE | 2018-08-02 19:05 | CMPROGNOTE_ITS ---
- If Service Date Differs Date of service: 08/02/18 Time of Service: 18:53 Care Management Progress Note Preston continues as involuntary admission awaiting placement for psychiatric stabilization. .CM reviewed plan with primary nurse and mental health [facility]. There is no changes in safety plan today. He being admitted to the medical surgical unit and continues to require CPSO. [facility] per admissions anticipate there will be no availabi lity over the weekend. Admissions reports they will reevaluate on Friday. Per nursing Preston is active at times however he can be re-directed. Per report he is eating and taking his regular medications. CM met with ED provider and reviewed plan and bed availability. Decision was made to admit to the inpatient unit by MD and RN elevator constructor supervisor. Safety plan updated to reflect level of care change. Date:08/02/2018 Safety plan has been established with care team, to adhere to patient goals, identify restrictions based on behavioral status, address nutrition, and determine allowed personal belongings, tools for hygiene and personal care. Determine level of activity including ambulation, level of supervision, visitors, and determine privileges based on behaviors and level of engagement by pt. Otis dubose not able to participate at this time SAFETY PLAN: 1. Will remain on suicide precautions. In Paper Scrubs. 2. Will remain in room under direct supervision of one-on-one staff at all times provided by CPSO, GREENS LABORER, FAMILY PARTNER saddle stitch operator. 3. May have paper cups, plates, finger foods, a metal spoon may be provided and accounted for at the end of the meal. 4. Follow [facility] Management of the Admitted Behavioral Health Patient policy. 5. Comfort bath system only. 6. No personal belongings, except nicotine inhaler at the bedside. 7. No visitors at this time. 8. Activities include, TV, coloring, paper, crayons at the discretion of the clinical staff.. 9..No telephone at this time. In the event of an emergent phone call it will be supervised by staff INVOLUNTARY FOR INPATIENT PSYCHIATRIC STABILIZATION. EE completed and he remains on involuntary status. High risk for elopement and high risk for aggressive behaviors. Javier is unpredictable in terms of his response at this time and cannot agree to inpatient psychiatric treatment but is at risk for harming himself and others. 10. Due to INVOLUNTARY status, the patient must remain in the hospital. Second Cert was completed and approved on 07/31/18. Candice is reviewing the referral no bed available at this time. [facility] will continue to search for placement and fax referrals to [place] facilities. Safety plan will be updated daily. Please contact work station support specialist CM and [facility] Crisis, for change in status and review of safety plan. Once a bed is available and patient is to be discharged [facility] will arranged transportation via cloth tearer to receiving facility.
[2018-08-02 19:23] VITALS: BP 159/83; PULSE 103; RESP 18; TEMP 36.7; O2SAT 98
--- NOTE | 2018-08-02 20:13 | W.INMHPGNOTE ---
Date of service: 08/02/18 Time of Service: 20:14 Mental Health Crisis Note Presenting Issue How did you arrive at the ED and why did you come: This patient had been in ED for several days and just transferred to [facility]. Precipitating Factors He is awaiting placement to a psychiatric hospital due to psychotic episode. Disposition BEHAVIOR: His behavior is cooperative and somewhat indifferent. He is defensive and restless. EYE CONTACT: He makes intermittent eye contact MOOD: His mood is depressed and anxious. AFFECT: His affect is flat. APPETITE: no problems SLEEP(trouble falling/staying asleep: sleeping okay Plan This patient is on EE status and this clinician assessed him . He did not want to talk much, he just wants to go home to his son and talk to his daughter. He is waiting for a psychiatric placement. Signature Clinician's Name/Title: Dhara Hicks [facility] Emergency Services Clinician
--- NOTE | 2018-08-02 20:28 | MHPN_ITS ---
Date of service: 08/02/18 Time of Service: 20:14 Mental Health Crisis Note Presenting Issue How did you arrive at the ED and why did you come: This patient had been in ED for several days and just transferred to [facility]. Precipitating Factors He is awaiting placement to a psychiatric hospital due to psychotic episode. Disposition BEHAVIOR: His behavior is cooperative and somewhat indifferent. He is defensive and restless. EYE CONTACT: He makes intermittent eye contact MOOD: His mood is depressed and anxious. AFFECT: His affect is flat. APPETITE: no problems SLEEP(trouble falling/staying asleep: sleeping okay Plan This patient is on EE status and this clinician assessed him . He did not want to talk much, he just wants to go home to his son and talk to his daughter. He is waiting for a psychiatric placement. Signature Clinician's Name/Title: Dhara Hicks [facility] Emergency Services Clinician
[2018-08-02] MEDS: Divalproex Sodium 500 MG TAB.ER.24H 1000 MG PO (20:37)
[2018-08-02] MEDS: QUEtiapine 100 MG TAB PO (20:37)
[2018-08-02] MEDS: Mirtazapine 15 MG TAB 30 MG PO (20:37)
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
[2018-08-03 00:04] VITALS: BP 152/98; PULSE 110; RESP 18; TEMP 36.7; O2SAT 98
[2018-08-03] MEDS: LORazepam 1 MG TAB PO ×3 (03:19→21:13)
--- NOTE | 2018-08-03 03:29 | NUR.NOTE ---
Nursing Note: At 03:20 hrs. Ativan po PRN given for increasing agitation, Decaf coffee given as requested. x 2. Redirected and remains in the room, to and fro in the door. Getting excited to tease cadre on sight. Closely observed.
[2018-08-03 07:24] VITALS: BP 158/100; PULSE 107; RESP 18; TEMP 36.4; O2SAT 98
[2018-08-03] MEDS: Folic Acid 1 MG TAB PO (08:17)
[2018-08-03] MEDS: Acetaminophen 500 MG TAB 1000 MG PO (08:17)
[2018-08-03] MEDS: Divalproex 500 MG TABEC PO (08:17)
[2018-08-03] MEDS: Aspirin 325 MG TAB PO (08:17)
[2018-08-03] MEDS: METHYLPHENIDATE 5 MG TAB PO ×2 (08:17→11:41)
[2018-08-03 09:30] VITALS: O2SAT 98
[2018-08-03 11:30] VITALS: BP 161/108; PULSE 112
--- NOTE | 2018-08-03 12:43 | PDOC.MHPN2 ---
Date of service: 08/03/18 Time of Service: 12:44 Mental Health Progress Note Progress Note: Presenting Issue: Patient remains at [facility] on involuntary status, awaiting a psych bed placement. He first came to the hospital on , July 30, 2018, via police due to erratic and aggressive behaviors. Precipitating Factors Patient frequently answers questions with questions. He is irritable and has difficulty sitting still. When asked how he slept last night, he replies you're doing the sleep study so you tell me. He talks about his children and his grandson. He also talks about his siblings and some of his experiences as a child. Speech remains pressured, thought process is disorganized. Disposition * Behavior: Somewhat cooperative. *Eye Contact: Intense and direct. *Mood: Irritable. *Affect: Anxious. *Appetite: Reported as good. *Sleep(troubel falling/staying asleep): Unknown - patient does not answer the question. Plan(please elaborate and include that physician is consulted with plan and/or placement): Patient will remain at [facility] on involuntary status while [facility] continue to seek a placement for him. Referrals have been faxed to [facility], [facility] but [facility]. Bianca Dailey BA, [facility] Lead Software Test Engineer Clinician's Name , Title, and Signature Make sure that you are photocopying and submitting this to [facility] records Dept. to be scanned into chart.
--- NOTE | 2018-08-03 12:56 | MHPN_ITS ---
Date of service: 08/03/18 Time of Service: 12:44 Mental Health Progress Note Progress Note: Presenting Issue: Patient remains at [facility] on involuntary status, awaiting a psych bed placement. He first came to the hospital on , July 30, 2018, via police due to erratic and aggressive behaviors. Precipitating Factors Patient frequently answers questions with questions. He is irritable and has difficulty sitting still. When asked how he slept last night, he replies you're doing the sleep study so you tell me. He talks about his children and his grandson. He also talks about his siblings and some of his experiences as a child. Speech remains pressured, thought process is disorganized. Disposition * Behavior: Somewhat cooperative. *Eye Contact: Intense and direct. *Mood: Irritable. *Affect: Anxious. *Appetite: Reported as good. *Sleep(troubel falling/staying asleep): Unknown - patient does not answer the question. Plan(please elaborate and include that physician is consulted with plan and/or placement): Patient will remain at [facility] on involuntary status while [facility] continue to seek a placement for him. Referrals have been faxed to [facility], [facility] today. Bianca Dailey BA, [facility] Cabana Attendant Clinician's Name , Title, and Signature Make sure that you are photocopying and submitting this to [facility] records Dept. to be scanned into chart.
[2018-08-03 13:14] LABS: VALPROIC ACID 66.7 ug/mL (50-100)
--- NOTE | 2018-08-03 14:36 | W.PM.PROGNOT ---
Date of Service Date of service: 08/03/18 Time of Service: 14:38 Assessment and Plan (1) Psychosis: Start date: 08/03/18 Start time: 14:37 Current visit: Yes Status: Acute His behavior has improved. He does not directly answer questions and redirects conversation back on to the person asking questions. Started on keppra with monitoring. (2) Schizoaffective disorder: Start date: 08/03/18 Start time: 14:38 Current visit: Yes Status: Chronic Continue his usual oral medications as the patient allows. Continue mental health consultation with involuntary placement for inpatient psychiatric care. No bed availability today. Subjective Interval history since last seen: This is a 47-year-old gentleman who presented to the ED 07/30/2018 for increasing psychotic behavior off his usual medications for his schizoaffective disorder. He was kept involuntarily because of behavior endangering himself and others. He has improved but continues to be agitated at times requiring medication though he now is taking his oral medications voluntarily. He is pending placement for inpatient psychiatric care and will be observed with one-on-one observation and 24-hour attendance. He will be given Ativan as needed and his usual medications orally as long as he is agreeing to take these medications. He will answer some questions when spoken to and redirect other questions to the person asking. He is taking medications, keppra started with monitoring unknown how long he was off medication. Referrals have been faxed by CM no bed availability today for inpatient. Exam Const General: cooperative, no acute distress and other Limitations: behavioral limitations [facility] Head: normal to inspection Eyes General: appearance normal, both eyes and all related structures Neck Neck: normal visual inspection Chest Chest: normal inspection of the chest Resp Effort & Inspection: normal respiratory effort and able to speak in complete sentences Auscultation: clear to auscultation bilaterally Cardio Jugular venous pressure: no JVD Palpation: normal PMI Rate: regular rate Rhythm: regular rhythm Heart Sounds: S1 normal and S2 normal GI Inspection: normal to inspection Palpation: soft and no hepatosplenomegaly Skin General skin exam: no rashes or lesions noted Neuro General: alert, awake and oriented x3 Extrem General: normal to inspection Psych Appearance: well kempt Mental Status: other Speech and Movement: speech and movement normal Mood: anxious mood, paranoid and other Affect: animated and anxious affect Attitude: guarded Thought Process: flight of ideas Thought Content: delusions and hallucinations Insight: limited Judgment: poor Objective Objective Clinical Data: Vital Signs Temperature 36.4 C L 08/03/18 07:24 Temperature Source Skin 08/03/18 07:24 Pulse 112 H 08/03/18 11:30 Pulse Rhythm Regular 08/03/18 07:24 Respiratory Rate 18 08/03/18 07:24 Respiratory Effort Non-Labored 08/03/18 07:24 Respiratory Depth Normal 08/03/18 07:24 Respiratory Pattern Normal 08/03/18 07:24 Blood Pressure 161/108 H 08/03/18 11:30 Blood Pressure Position Standing 07/30/18 17:19 Pulse Oximetry 98 08/03/18 09:30 Oxygen Delivery Method Room Air 08/03/18 09:30 Oxygen Flow Rate 0 08/03/18 09:30 Pain Level 3 08/03/18 08:17 Intake & Output 08/02/18 08/03/18 08/03/18 23:59 11:59 23:59 Intake Total 720 / 960 240 / 960 Balance 720 / 960 240 / 960 Weight 65.8 kg 65.9 kg Intake: Oral 720 / 960 240 / 960 Other: Comment Void x1 in the toilet. Voiding Methods Toilet Laboratory Results WBC 13.89 k/cumm (4.4-10.8) H 07/30/18 17:19 RBC 5.92 m/cumm (4.50-6.00) 07/30/18 17:19 Hgb 18.4 g/dL (13.5-17.5) H 07/30/18 17:19 Hct 51.3 % (40.0-50.0) H 07/30/18 17:19 MCV 86.7 fL (80-95) 07/30/18 17:19 MCH 31.1 pg (27.0-33.0) 07/30/18 17:19 MCHC 35.9 g/dL (32.0-36.0) 07/30/18 17:19 RDW 13.8 % (11.8-14.1) 07/30/18 17:19 Plt Count 399 x1000/uL (130-400) D 07/30/18 17:19 MPV 10.5 fL (8.0-11.0) 07/30/18 17:19 Immature Gran % 0.4 07/30/18 17:19 Neutrophils % 65.3 07/30/18 17:19 Lymphocytes % 21.7 07/30/18 17:19 Monocytes % 10.9 07/30/18 17:19 Eosinophils % 1.2 07/30/18 17:19 Basophils % 0.5 07/30/18 17:19 Absolute Neutrophils 9.07 k/cumm (1.2-6.7) H 07/30/18 17:19 Absolute Lymphocytes 3.01 k/cumm (1.2-3.4) 07/30/18 17:19 Absolute Monocytes 1.51 k/cumm (0.11-0.7) H 07/30/18 17:19 Absolute Eosinophils 0.17 k/cumm (0.0-0.7) 07/30/18 17:19 Absolute Basophils 0.07 k/cumm (0.0-0.2) 07/30/18 17:19 Differential Comment Diff reviewed 07/30/18 17:19 Sodium 137 mmol/L (136-145) 07/30/18 17:19 Potassium 3.7 mmol/L (3.5-5.1) 07/30/18 17:19 Chloride 97 mmol/L (98-107) L 07/30/18 17:19 Carbon Dioxide 27.8 mmol/L (21.0-32.0) 07/30/18 17:19 Anion Gap 12.2 mmol/L (3-11) H 07/30/18 17:19 BUN 11 mg/dL (7-18) 07/30/18 17:19 Creatinine 1.09 mg/dL (0.70-1.30) 07/30/18 17:19 Estimated GFR/1.73 m2 >= 60.00 (mL/min/1.73m2) 07/30/18 17:19 Glucose 128 mg/dL (70-100) H 07/30/18 17:19 Calcium 10.4 mg/dL (8.5-10.1) H 07/30/18 17:19 Total Bilirubin 0.7 mg/dL (0.2-1.0) 07/30/18 17:19 AST 23 U/L (15-37) 07/30/18 17:19 ALT 25 U/L (12-78) 07/30/18 17:19 Alkaline Phosphatase 126 U/L (46-116) H 07/30/18 17:19 Total Protein 9.1 g/dL (6.4-8.2) H 07/30/18 17:19 Albumin 4.7 g/dL (3.4-5.0) 07/30/18 17:19 TSH 1.82 uIU/mL (0.358-3.74) 07/30/18 17:19 Urine Color Yellow (Yellow) 08/01/18 14:15 Urine Clarity Clear 08/01/18 14:15 Urine pH 6.5 (5-8) 08/01/18 14:15 Ur Specific [place] 1.015 (1.005-1.025) 08/01/18 14:15 Urine Protein Negative mg/dL (Negative) 08/01/18 14:15 Urine Ketones Trace mg/dL (Negative) H 08/01/18 14:15 Urine Blood Negative (Negative) 08/01/18 14:15 Urine Nitrite Negative (Negative) 08/01/18 14:15 Urine Bilirubin Negative (Negative) 08/01/18 14:15 Urine Urobilinogen 0.2 EU/dL (Up TO 0.2) 08/01/18 14:15 Ur Leukocyte Esterase Negative (Negative) 08/01/18 14:15 Urine Glucose Negative mg/dL (Negative) 08/01/18 14:15 Salicylates 8.1 mg/dL (2.8-20.0) 07/30/18 17:19 Urine Opiates Screen Negative (Negative) 08/01/18 14:15 Urine Methadone Screen Negative (Negative) 08/01/18 14:15 Acetaminophen < 2 ug/mL (10-30) L 07/30/18 17:19 Ur Barbiturates Screen Negative (Negative) 08/01/18 14:15 Total Valproic Acid 66.7 ug/mL (50-100) 08/03/18 12:31 Ur Tricyclics Screen Negative (Negative) 08/01/18 14:15 Ur Amphetamines Screen Negative (Negative) 08/01/18 14:15 U Benzodiazepines Scrn Negative (Negative) 08/01/18 14:15 Urine Cocaine Screen Negative (Negative) 08/01/18 14:15 Ur THC Screen Positive (Negative) 08/01/18 14:15 Ethyl Alcohol < 3.0 mg/dL (<3) 07/30/18 17:19
--- NOTE | 2018-08-03 14:37 | PDOC.CMPRO ---
- If Service Date Differs Date of service: 08/03/18 Time of Service: 14:37 Care Management Progress Note Preston continues as involuntary admission awaiting placement for psychiatric stabilization. .CM reviewed plan with primary nurse and mental health [facility] and precipitator supervisor updated. CM did contact [facility] Irene Hunt and requested assistance with placement at psychiatric facility. There is no changes in safety plan today. He continues as an observation patient on the medical surgical unit and continues to require CPSO. Per nursing Preston is taking his medications and declined PRN ativan this morning however agreed to take it this afternoon. Preston is active in the room however he can be re-directed. Per report he is eating. CM met with provider and reviewed plan and bed availability. Per mental health crisis the following referrals have been faxed: RENEE, Rody, and Candice Hasty. INVOLUNTARY FOR INPATIENT PSYCHIATRIC STABILIZATION. EE completed and he remains on involuntary status. High risk for elopement and high risk for aggressive behaviors. Javier is unpredictable in terms of his response at this time and cannot agree to inpatient psychiatric treatment but is at risk for harming himself and others. Date:08/03/2018 Room 228 Safety plan has been established with care team, to adhere to patient goals, identify restrictions based on behavioral status, address nutrition, and determine allowed personal belongings, tools for hygiene and personal care. Determine level of activity including ambulation, level of supervision, visitors, and determine privileges based on behaviors and level of engagement. Preston, states he is being held against his will. No change in the current Safety Plan today Mental Health continues to recommend inpatient psychiatric facility for stabilization. SAFETY PLAN: 1. Will remain on suicide precautions. In Paper Scrubs. 2. Will remain in room under direct supervision of one-on-one staff at all times provided by CPSO, MICROWAVE RADIO TECHNICIAN, INSTRUCTOR ROBOTICS machine operator assistant. 3. May have paper cups, plates, finger foods, a metal spoon may be provided and accounted for at the end of the meal. 4. Follow [facility] Management of the Admitted Behavioral Health Patient policy. 5. Comfort bath system only. 6. No personal belongings, except nicotine inhaler at the bedside. 7. No visitors at this time. 8. Activities include, TV, coloring, paper, crayons at the discretion of the clinical staff.. 9..No telephone at this time. In the event of an emergent phone call it will be supervised by staff 10. Due to INVOLUNTARY status, the patient must remain in the hospital. Second Cert was completed and approved on 07/31/18. RENEE Harvey and Rody are reviewing the referral no bed available at this time. [facility] will continue to search for placement and fax referrals to [place] facilities as identified. Safety plan will be updated daily. Please contact parts counter sales person CM and [facility] Crisis, for change in status and review of safety plan. Once a bed is available and patient is to be discharged [facility] will arranged transportation via twenty one dealer to receiving facility.
--- NOTE | 2018-08-03 14:52 | CMPROGNOTE_ITS ---
- If Service Date Differs Date of service: 08/03/18 Time of Service: 14:37 Care Management Progress Note Preston continues as involuntary admission awaiting placement for psychiatric stabilization. .CM reviewed plan with primary nurse and mental health [facility] and lease administration supervisor updated. CM did contact [facility] Irene Hunt and requested assistance with placement at psychiatric facility. There is no changes in safety plan today. He continues as an observation patient on the medical surgical unit and continues to require CPSO. Per nursing Preston is taking his medications and declined PRN ativan this morning however agreed to take it this afternoon. Preston is active in the room however he can be re-directed. Per report he is eating. CM met with provider and reviewed plan and bed availability. Per mental health crisis the following referrals have been faxed: RENEE, Rody, and Candice [place]. INVOLUNTARY FOR INPATIENT PSYCHIATRIC STABILIZATION. EE completed and he remains on involuntary status. High risk for elopement and high risk for aggressive behaviors. Javier is unpredictable in terms of his response at this time and cannot agree to inpatient psychiatric treatment but is at risk for harming himself and others. Date:08/03/2018 Room 228 Safety plan has been established with care team, to adhere to patient goals, identify restrictions based on behavioral status, address nutrition, and determine allowed personal belongings, tools for hygiene and personal care. Determine level of activity including ambulation, level of supervision, visitors, and determine privileges based on behaviors and level of engagement. Preston, states he is being held against his will. No change in the current Safety Plan today Mental Health continues to recommend inpatient psychiatric facility for stabilization. SAFETY PLAN: 1. Will remain on suicide precautions. In Paper Scrubs. 2. Will remain in room under direct supervision of one-on-one staff at all times provided by CPSO, MAKE UP MAN, LEGAL SPECIALIST shot core drill operator helper. 3. May have paper cups, plates, finger foods, a metal spoon may be provided and accounted for at the end of the meal. 4. Follow [facility] Management of the Admitted Behavioral Health Patient policy. 5. Comfort bath system only. 6. No personal belongings, except nicotine inhaler at the bedside. 7. No visitors at this time. 8. Activities include, TV, coloring, paper, crayons at the discretion of the clinical staff.. 9..No telephone at this time. In the event of an emergent phone call it will be supervised by staff 10. Due to INVOLUNTARY status, the patient must remain in the hospital. Second Cert was completed and approved on 07/31/18. RENEE Harvey and Rody are reviewing the referral no bed available at this time. [facility] will continue to search for placement and fax referrals to [place] facilities as identified. Safety plan will be updated daily. Please contact concrete polisher CM and [facility] Crisis, for change in status and review of safety plan. Once a bed is available and patient is to be discharged [facility] will arranged transportation via metal buildings assembler to receiving facility.
--- NOTE | 2018-08-03 15:54 | PHARADMIT ---
Addendum entered by Abdelrahman Bernal III 08/05/18 14:19: Pharmacy Note Subjective Patient having inappropriate behavior, requiring restraints. MD increased Seroquel to 300mg PO tid and added Depakote-ER 500mg PO qAM, with input. Objective VS-OK HR-100 H&H-16.3/47.5 Plts-309 WBC-9.75 Assessment Patient is destroying Nicotrol inhaleer mouth pieces, (chewing) Plan Mental Shaheed & CM working on placement in psych facility Addendum entered by Abdelrahman Bernal III 08/04/18 11:04: Pharmacy Note Subjective Patient here as involuntary admission awaiting psych bed for acute psychosis. Has cadre. Objective VS-OK No Labs Assessment Depkote-ER 1000mg po hs is the current order per MD Plan Awaiting psych bed Original Note: Admission Pharmacy Clinical Review acute psychosis Code Status Full Code Current Weight 65.9 kg Renally Cleared and Narrow Therapeutic Index Meds Crcl ~79.00 mL/min current meds okay pt had divalrpoex ordered, waiting for level to come back QTc Value / Action Taken n/a BP Control, Fever BP 161/108 afebrile Electrolytes reviewed Cl 97 DVT Prophylaxis none Opiate Usage / Scheduled Bowel Regimen Ordered no/prn Plt/SCr for Heparin / Enoxaparin plt 399 SCr 1.09 INR for Warfarin n/a H/H stable, WBC/Bands h/h 18.4/51.3 wbc 13.89 Antibiotic appropriateness n/a Cultures and Sensitivities n/a Surgical ABX d/c within 24 hr n/a DM control / Insulin Dosing BG 128 none Heart Failure (Check EF%) (JAVID's, B-Block, Diuretics) none IV to PO Switch n/a Home Meds Reviewed -meloxicam may enhance the adverse/toxic effects of aspirin (increased bleed risk) Home Meds Not Ordered acetylcysteine, divalproex, levomefolate, marijuana, meloxicam Comments -per MD's office pt ordered to take divalproex ER 500 mg tabs 2 PO QHS and divalrpoex ER 250 mg QAM (home med list incorrectly has it listed as DR/EC). watch for this when med is reordered -progress note mentions starting pt on levetiracetam but none has been ordered so far
--- NOTE | 2018-08-03 16:12 | NUR.NOTE ---
Nursing Note: Pt. asking what his depakote level came back at following the noon time lab draw. Pt. was notified that his depakote level (level of valproic acid in his blood) was 66.7 and that the normal/therapeutic range is between 50-100. Pt. states that he needs to have it titrated up to 75. Pt. asking to have the MD titrate his medication up to help with his depression. Pt. keeps stating that his depakote level ...needs to be at 75 to help with my depression. You can shoot me if I'm lying. Pt. informed that that is inappropriate language and that the RN would notify the charge nurse that the pt. would like to speak with the MD regarding his depakote level, etc. RN will reassess as necessary.
[2018-08-03] MEDS: QUEtiapine 100 MG TAB PO (21:13)
[2018-08-03] MEDS: Mirtazapine 15 MG TAB 30 MG PO (21:13)
--- NOTE | 2018-08-03 21:40 | NUR.NOTE ---
Nursing Note: Pt. completely naked at door to room, patient instructed to place his clothing back on immediately. Pt stated this is how I came into this world. Patient instructed he must comply with staff instructions regarding clothing.
--- NOTE | 2018-08-04 03:56 | NUR.NOTE ---
Nursing Note: Pt. is standing at the toilet, flushing it over and over, refuses to stop flushing the toilet despite best efforts of the staff to redirect patients attention.
[2018-08-04 03:58] VITALS: BP 153/100; PULSE 85; RESP 20; TEMP 35.9; O2SAT 97
[2018-08-04] MEDS: LORazepam 1 MG TAB PO ×3 (04:03→20:31)
[2018-08-04 07:45] VITALS: BP 123/90; PULSE 124; RESP 20; TEMP 36.6; O2SAT 97
[2018-08-04] MEDS: Aspirin 325 MG TAB PO (08:08)
[2018-08-04] MEDS: METHYLPHENIDATE 5 MG TAB PO (08:08)
[2018-08-04] MEDS: Folic Acid 1 MG TAB PO (08:08)
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
--- NOTE | 2018-08-04 10:54 | PDOC.CMPRO ---
- If Service Date Differs Date of service: 08/04/18 Time of Service: 10:54 Care Management Progress Note Preston continues as involuntary admission awaiting placement for psychiatric stabilization. Preston has been standing at his door throughout the morning, and has been threatening certain staff stating I'm going to give you a black eye and I'm going to give you a bloody nose. CM facilitated huddle with staff listed below in order to discuss current management. As Preston has been reported to being sexually inappropriate (Undressing, verbally inappropriate) some female CPSO's are not comfortable sitting with him at this time (Per Susan, EUSEBIO Package Clerk). Susan, RN Package Clerk, states that she has found male CPSO staff until tomorrow morning. Discussed Preston's escalating behaviors, MILENA Burns, states that limits need to be presented to Preston, which are listed in the safety plan below. MILENA Burns, and EUSEBIO Cole, to meet with Preston in regards to limits, and behavioral expectations while at [facility] awaiting placement. Restraint policy was reviewed during huddle, as well as when restraints should be used. MILENA Burns, and EUSEBIO Howe, spoke with Preston in regards to limitations in regards to behaviors and being in his room, and when restraints would need to be used. CM received notification from Irene Hunt, [facility], that there are no high acuity beds available at this time. Bianca [facility], met with Preston today as well. INVOLUNTARY FOR INPATIENT PSYCHIATRIC STABILIZATION. EE completed and he remains on involuntary status. High risk for elopement and high risk for aggressive behaviors. Javier is unpredictable in terms of his response at this time and cannot agree to inpatient psychiatric treatment but is at risk for harming himself and others. Huddle: Date:08/04/2018 @ 1045 Participants: Grant (MILENA)Susan (RN Package Clerk), Shyam (RN), Cheryl (EUSEBIO CC), Amol Manuel (Security), Dr. Bullard (MUTUAL FUND ANALYST), Adelina (CM). Safety plan has been established with care team, to adhere to patient goals, identify restrictions based on behavioral status, address nutrition, and determine allowed personal belongings, tools for hygiene and personal care. Determine level of activity including ambulation, level of supervision, visitors, and determine privileges based on behaviors and level of engagement. Preston, states he is being held against his will. Due to Dann's current presentation no change in the current Safety Plan today Mental Health continues to recommend inpatient psychiatric facility for stabilization as per huddle discussion. SAFETY PLAN: 1. Will remain on suicide precautions. In Paper Scrubs. 2. Will remain in room under direct supervision of one-on-one staff at all times provided by CPSO, PLANT PROTECTION SUPERVISOR, CRAWLER TRACTOR OPERATOR forest practices field coordinator. Due to safety concerns and verbal threats to staff Preston to remain behind the inner door in his room, which will remain opened. 3. May have paper cups, plates, finger foods, a metal spoon may be provided and accounted for at the end of the meal. 4. Follow [facility] Management of the Admitted Behavioral Health Patient policy. 5. Comfort bath system only. 6. No personal belongings, except nicotine inhaler at the bedside. 7. No visitors at this time. 8. Activities include, TV, coloring, paper, crayons at the discretion of the clinical staff. 9..No telephone at this time. In the event of an emergent phone call it will be supervised by staff 10. Due to INVOLUNTARY status, the patient must remain in the hospital. Second Cert was completed and approved on 07/31/18. RENEE Harvey and Rody are reviewing the referral no bed available at this time. [facility] will continue to search for placement and fax referrals to [place] facilities as identified. Safety plan will be updated daily. Please contact carbon paste mixer operator CM and [facility] Crisis, for change in status and review of safety plan. Once a bed is available and patient is to be discharged [facility] will arranged transportation via child development associate teacher to receiving facility.
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
--- NOTE | 2018-08-04 12:15 | CMPROGNOTE_ITS ---
- If Service Date Differs Date of service: 08/04/18 Time of Service: 10:54 Care Management Progress Note Preston continues as involuntary admission awaiting placement for psychiatric stabilization. Preston has been standing at his door throughout the morning, and has been threatening certain staff stating I'm going to give you a black eye and I'm going to give you a bloody nose. CM facilitated huddle with staff listed below in order to discuss current management. As Preston has been reported to being sexually inappropriate (Undressing, verbally inappropriate) some female CPSO's are not comfortable sitting with him at this time (Per Susan, EUSEBIO Shuttle Truck Driver). Susan, RN Shuttle Truck Driver, states that she has found male CPSO staff until tomorrow morning. Discussed Preston's escalating behaviors, MILENA Burns, states that limits need to be presented to Preston, which are listed in the safety plan below. MILENA Burns, and EUSEBIO Cole, to meet with Preston in regards to limits, and behavioral expectations while at [facility] awaiting placement. Restraint policy was reviewed during huddle, as well as when restraints should be used. MILENA Burns, and EUSEBIO Howe, spoke with Preston in regards to limitations in regards to behaviors and being in his room, and when restraints would need to be used. CM received notification from Irene Hunt, [facility], that there are no high acuity beds available at this time. Bianca [facility], met with Preston today as well. INVOLUNTARY FOR INPATIENT PSYCHIATRIC STABILIZATION. EE completed and he remains on involuntary status. High risk for elopement and high risk for aggressive behaviors. Javier is unpredictable in terms of his response at this time and cannot agree to inpatient psychiatric treatment but is at risk for harming himself and others. Huddle: Date:08/04/2018 @ 1045 Participants: Grant (MILENA)Susan (RN Shuttle Truck Driver), Shyam (RN), Cheryl (EUSEBIO CC), Amol Manuel (Security), Dr. Bullard (PRODUCTION SANITIZER), Adelina (CM). Safety plan has been established with care team, to adhere to patient goals, identify restrictions based on behavioral status, address nutrition, and determine allowed personal belongings, tools for hygiene and personal care. Determine level of activity including ambulation, level of supervision, visi tors, and determine privileges based on behaviors and level of engagement. Preston, states he is being held against his will. Due to Dann's current presentation no change in the current Safety Plan today Mental Health continues to recommend inpatient psychiatric facility for stabilization as per huddle discussion. SAFETY PLAN: 1. Will remain on suicide precautions. In Paper Scrubs. 2. Will remain in room under direct supervision of one-on-one staff at all times provided by CPSO, PANTRY CHEF, MECHANICAL PRODUCT DESIGN ENGINEER motor coach bus driver. Due to safety concerns and verbal threats to staff Preston to remain behind the inner door in his room, which will remain opened. 3. May have paper cups, plates, finger foods, a metal spoon may be provided and accounted for at the end of the meal. 4. Follow [facility] Management of the Admitted Behavioral Health Patient policy. 5. Comfort bath system only. 6. No personal belongings, except nicotine inhaler at the bedside. 7. No visitors at this time. 8. Activities include, TV, coloring, paper, crayons at the discretion of the clinical staff. 9..No telephone at this time. In the event of an emergent phone call it will be supervised by staff 10. Due to INVOLUNTARY status, the patient must remain in the hospital. Second Cert was completed and approved on 07/31/18. RENEE Harvey and [facility] are reviewing the referral no bed available at this time. [facility] will continue to search for placement and fax referrals to [place] facilities as identified. Safety plan will be updated daily. Please contact utilization management um nurse CM and [facility] Crisis, for change in status and review of safety plan. Once a bed is available and patient is to be discharged [facility] will arranged transportation via [employer] to receiving facility.
--- NOTE | 2018-08-04 16:52 | NUR.NOTE ---
Nursing Note: Patient expressed concern that the discontinuation of the ritakin would effect his behaviors,I passed this on th the personal care home administrator
--- NOTE | 2018-08-04 16:54 | W.PM.PROGNOT ---
Date of Service Date of service: 08/04/18 Time of Service: 16:55 Assessment and Plan (1) Psychosis: Current visit: Yes Status: Acute He remains agitated at times. He does not directly answer questions and redirects conversation back to the interviewer. His Depakote level was 66.7. Resume HS Depakote dose. Hold Ritalin as he has been more agitated. Continue safety plan. Continue one-to-one patient observation. Mental health continues to seek placement at a psychiatric facility. Melia DOLAN. (2) Schizoaffective disorder: Current visit: Yes Status: Chronic Continue usual medications. Subjective Interval history since last seen: Preston Arciniega is a 47 year old man with history of schizoaffective disorder who presented to the ED 07/30/2018 for increasing psychotic behavior. He reportedly had not been taking his usual medications. He is currently on EE status. He is pending placement for inpatient psychiatric care. He has 1:1 patient observation. Today, he is taking his medications as ordered. He has scattered thoughts and flight of ideas. It is unclear what is factual and what is not. He answers some questions, he redirects others. He has been aggressive at times. He has a safetly plan in place. Exam Narrative Exam Narrative: General: pacing in his room, cadre present at door way. Talking with flight of ideas. HEENT: Normocephalic, atraumatic. Neck: supple. Respiratory: respirations even and unlabored. Musculoskeletal: Ambulating freely in the room, moves all 4 extremities equally. Objective Objective Clinical Data: Vital Signs Temperature 36.6 C 08/04/18 07:45 Temperature Source Tympanic 08/04/18 07:45 Pulse 124 H 08/04/18 07:45 Pulse Rhythm Regular 08/03/18 20:48 Respiratory Rate 20 08/04/18 07:45 Respiratory Effort 08/04/18 09:29 Respiratory Depth Normal 08/04/18 09:29 Respiratory Pattern Normal 08/04/18 09:29 Blood Pressure 123/90 08/04/18 07:45 Blood Pressure Position Standing 07/30/18 17:19 Pulse Oximetry 97 08/04/18 07:45 Oxygen Delivery Method Room Air 08/04/18 07:45 Oxygen Flow Rate 0 08/04/18 07:45 Pain Level 0 08/03/18 09:17 Comment 08/03/18 11:35 Intake & Output 08/03/18 08/04/18 08/04/18 23:59 11:59 23:59 Intake Total 480 / 1200 Balance 480 / 1200 Intake: Oral 480 / 1200 Other: Urine Color Yellow Urine Appearance Clear Comment Void x1 in the toilet. Voiding Methods Toilet Toilet Laboratory Results WBC 13.89 k/cumm (4.4-10.8) H 07/30/18 17:19 RBC 5.92 m/cumm (4.50-6.00) 07/30/18 17:19 Hgb 18.4 g/dL (13.5-17.5) H 07/30/18 17:19 Hct 51.3 % (40.0-50.0) H 07/30/18 17:19 MCV 86.7 fL (80-95) 07/30/18 17:19 MCH 31.1 pg (27.0-33.0) 07/30/18 17:19 MCHC 35.9 g/dL (32.0-36.0) 07/30/18 17:19 RDW 13.8 % (11.8-14.1) 07/30/18 17:19 Plt Count 399 x1000/uL (130-400) D 07/30/18 17:19 MPV 10.5 fL (8.0-11.0) 07/30/18 17:19 Immature Gran % 0.4 07/30/18 17:19 Neutrophils % 65.3 07/30/18 17:19 Lymphocytes % 21.7 07/30/18 17:19 Monocytes % 10.9 07/30/18 17:19 Eosinophils % 1.2 07/30/18 17:19 Basophils % 0.5 07/30/18 17:19 Absolute Neutrophils 9.07 k/cumm (1.2-6.7) H 07/30/18 17:19 Absolute Lymphocytes 3.01 k/cumm (1.2-3.4) 07/30/18 17:19 Absolute Monocytes 1.51 k/cumm (0.11-0.7) H 07/30/18 17:19 Absolute Eosinophils 0.17 k/cumm (0.0-0.7) 07/30/18 17:19 Absolute Basophils 0.07 k/cumm (0.0-0.2) 07/30/18 17:19 Differential Comment Diff reviewed 07/30/18 17:19 Sodium 137 mmol/L (136-145) 07/30/18 17:19 Potassium 3.7 mmol/L (3.5-5.1) 07/30/18 17:19 Chloride 97 mmol/L (98-107) L 07/30/18 17:19 Carbon Dioxide 27.8 mmol/L (21.0-32.0) 07/30/18 17:19 Anion Gap 12.2 mmol/L (3-11) H 07/30/18 17:19 BUN 11 mg/dL (7-18) 07/30/18 17:19 Creatinine 1.09 mg/dL (0.70-1.30) 07/30/18 17:19 Estimated GFR/1.73 m2 >= 60.00 (mL/min/1.73m2) 07/30/18 17:19 Glucose 128 mg/dL (70-100) H 07/30/18 17:19 Calcium 10.4 mg/dL (8.5-10.1) H 07/30/18 17:19 Total Bilirubin 0.7 mg/dL (0.2-1.0) 07/30/18 17:19 AST 23 U/L (15-37) 07/30/18 17:19 ALT 25 U/L (12-78) 07/30/18 17:19 Alkaline Phosphatase 126 U/L (46-116) H 07/30/18 17:19 Total Protein 9.1 g/dL (6.4-8.2) H 07/30/18 17:19 Albumin 4.7 g/dL (3.4-5.0) 07/30/18 17:19 TSH 1.82 uIU/mL (0.358-3.74) 07/30/18 17:19 Urine Color Yellow (Yellow) 08/01/18 14:15 Urine Clarity Clear 08/01/18 14:15 Urine pH 6.5 (5-8) 08/01/18 14:15 Ur Specific [place] 1.015 (1.005-1.025) 08/01/18 14:15 Urine Protein Negative mg/dL (Negative) 08/01/18 14:15 Urine Ketones Trace mg/dL (Negative) H 08/01/18 14:15 Urine Blood Negative (Negative) 08/01/18 14:15 Urine Nitrite Negative (Negative) 08/01/18 14:15 Urine Bilirubin Negative (Negative) 08/01/18 14:15 Urine Urobilinogen 0.2 EU/dL (Up TO 0.2) 08/01/18 14:15 Ur Leukocyte Esterase Negative (Negative) 08/01/18 14:15 Urine Glucose Negative mg/dL (Negative) 08/01/18 14:15 Salicylates 8.1 mg/dL (2.8-20.0) 07/30/18 17:19 Urine Opiates Screen Negative (Negative) 08/01/18 14:15 Urine Methadone Screen Negative (Negative) 08/01/18 14:15 Acetaminophen < 2 ug/mL (10-30) L 07/30/18 17:19 Ur Barbiturates Screen Negative (Negative) 08/01/18 14:15 Total Valproic Acid 66.7 ug/mL (50-100) 08/03/18 12:31 Ur Tricyclics Screen Negative (Negative) 08/01/18 14:15 Ur Amphetamines Screen Negative (Negative) 08/01/18 14:15 U Benzodiazepines Scrn Negative (Negative) 08/01/18 14:15 Urine Cocaine Screen Negative (Negative) 08/01/18 14:15 Ur THC Screen Positive (Negative) 08/01/18 14:15 Ethyl Alcohol < 3.0 mg/dL (<3) 07/30/18 17:19
--- NOTE | 2018-08-04 17:00 | NUR.NOTE ---
pt became agitated and tried pulling drawer from bedside table- CPSO attempted to de-escalate - pt spilled coffee and then refused dinner tray. Pt guided back onto room and advised that he should let staff know if he changes his mind and would dinner- food was labeled and placed in pt refrigerator. Nursing Note:
--- NOTE | 2018-08-04 17:34 | NUR.NOTE ---
Nursing Note: reviewed the outcome of this mornings huddle with the staff on 07-20, on what the expectations of the patient are and the consequences should he violate the expectations, roles of who was to perform what where discussed in the event of a code cano call, security has had a presence on the floor this afternoon
--- NOTE | 2018-08-04 19:15 | NUR.NOTE ---
Nursing Note: Pt. requested something to help me relax I offered the patient 1mg of Ativan which has been ordered by the prn for anxiety. I brought this to the patient, he then refused to take the medication spat the pill back out onto the floor. Medication wasted with another RN as witness.
[2018-08-04 20:16] VITALS: BP 173/105; PULSE 82; RESP 21; TEMP 36.8; O2SAT 99
[2018-08-04] MEDS: Acetaminophen 500 MG TAB 1000 MG PO (20:31)
--- NOTE | 2018-08-04 20:31 | NUR.NOTE ---
Nursing Note: Pt. became very anxious and attempted to exit his room, CC redirected patient and succeeded in returning him to his room. prn tylenol and ativan given per patients request and MD orders.
[2018-08-04] MEDS: Haloperidol 5 MG/ML VIAL 4 MG IM (21:31)
--- NOTE | 2018-08-04 21:32 | NUR.NOTE ---
pt has been increasingly agitated t/o shift- multiple offers for nurishment and other comort measures refused. refused prn medications- made multiple attempts to strike staff- continued to attempt to de-escalate patient but he persisted with clenched fists and angry outburst. Pt was placed in restraints for staff and patient safety- Dr. Sher notifed, order for 4 mg im haldol given - Apryl Richards nurse supervisor felting notified. Nursing Note:
[2018-08-04] MEDS: QUEtiapine 100 MG TAB PO (21:55)
[2018-08-04] MEDS: Mirtazapine 15 MG TAB 30 MG PO (21:55)
[2018-08-04] MEDS: Divalproex Sodium 500 MG TAB.ER.24H 1000 MG PO (21:55)
--- NOTE | 2018-08-04 22:43 | NUR.NOTE ---
Nursing Note: at 2114 patient became increasingly agitated, pacing about the room, yelling at staff, attempting to leave his room. Several attempts were made to redirect patient, snacks were offered, as well as other comfort measures. patient was unreceptive and became violent toward this nurse and the cadre, attempting to punch and kick both the nurse and cadre, CC intervened, also attempting to de-escalate the situation, patient continued such violent attempts and making verbal threats to staff. at 2129 patient was placed in 4 point restraints, protocol followed, CC contacted attending MD. All restraints were checked as well as pulses which were all normal. Explained to patient criteria for removal of restraints. at 2199 patient had calmed down significantly and agreed to cooperate with staff, right wrist restraint was removed at this time. Patient remained calm and at 2214 I removed the left wrist restraint. There were no issues during this time, all pulses checked and were normal. at 2229 I removed both ankle restraints as patient had remained calm, communicating with staff appropriately. Pt. reports no pain or discomfort, states he just want to get some sleep.
--- NOTE | 2018-08-04 23:43 | NUR.NOTE ---
Nursing Note: Patient is sleeping in bed, no signs of pain or discomfort noted, respirations are even and unlabored. Will continue to monitor. Cadre at bedside.
[2018-08-05 06:12] VITALS: BP 157/101; PULSE 112; RESP 18; TEMP 37.1; O2SAT 100
[2018-08-05 07:03] LABS: HCT 47.5 % (40.0-50.0); HGB 16.3 g/dL (13.5-17.5); Mean Corp. HGB Concentration 34.3 g/dL (32.0-36.0); Mean Corpuscular Hemoglobin 30.6 pg (27.0-33.0); Mean Corpuscular Volume 89.1 fL (80-95); Mean Platelet Volume 10.7 fL (8.0-11.0); Platelet Count 309 x1000/uL (130-400); RBC 5.33 m/cumm (4.50-6.00); RBC Distribution Width 13.4 % (11.8-14.1); White Blood Cell Count 9.75 k/cumm (4.4-10.8)
[2018-08-05] MEDS: Folic Acid 1 MG TAB PO (07:48)
[2018-08-05] MEDS: Aspirin 325 MG TAB PO (07:48)
[2018-08-05 07:50] VITALS: BP 137/89; PULSE 100; RESP 18; TEMP 36.9; O2SAT 97
--- NOTE | 2018-08-05 08:13 | PDOC.CMPRO ---
- If Service Date Differs Date of service: 08/05/18 Time of Service: 08:13 Care Management Progress Note Preston continues as involuntary admission awaiting placement for psychiatric stabilization. Throughout the day today Preston has been standing at his door and at times is verbally threatening to staff members. SAROJ spoke with Irene Hunt [facility], this morning and faxed a referral to [facility] for a high acuity bed that will potentially be available. Golden [facility], also met with Preston today, and has faxed a referral to [facility]. Preston has requested that he call his search coordinator Christian Frazier, SAROJ has provided EUSEBIO Luna CC, with his corporate associate attorney's phone number and Preston will call him today. INVOLUNTARY FOR INPATIENT PSYCHIATRIC STABILIZATION. EE completed and he remains on involuntary status. High risk for elopement and high risk for aggressive behaviors. Javier is unpredictable in terms of his response at this time and cannot agree to inpatient psychiatric treatment but is at risk for harming himself and others. Huddle: Date:08/05/2018 Safety plan has been established with care team, to adhere to patient goals, identify restrictions based on behavioral status, address nutrition, and determine allowed personal belongings, tools for hygiene and personal care. Determine level of activity including ambulation, level of supervision, visitors, and determine privileges based on behaviors and level of engagement. Preston, states he is being held against his will. Due to Blazecruz's current presentation no change in the current Safety Plan today Mental Health continues to recommend inpatient psychiatric facility for stabilization as per huddle discussion. SAFETY PLAN: 1. Will remain on suicide precautions. In Paper Scrubs. 2. Will remain in room under direct supervision of one-on-one staff at all times provided by CPSO, NANCY, FIRESTOP/CONTAINMENT WORKER marketing support coordinator. Due to safety concerns and verbal threats to staff Preston to remain behind the inner door in his room, which will remain opened. 3. May have paper cups, plates, finger foods, a metal spoon may be provided and accounted for at the end of the meal. 4. Follow [facility] Management of the Admitted Behavioral Health Patient policy. 5. Comfort bath system only. 6. No personal belongings, except nicotine inhaler at the bedside. 7. No visitors at this time. 8. Activities include, TV, coloring, paper, crayons at the discretion of the clinical staff. 9..No telephone at this time. In the event of an emergent phone call it will be supervised by staff 10. Due to INVOLUNTARY status, the patient must remain in the hospital. Second Cert was completed and approved on 07/31/18. [facility] and [facility] are reviewing the referral no bed available at this time. [facility] will continue to search for placement and fax referrals to [place] facilities as identified. Safety plan will be updated daily. Please contact manager control CM and [facility] Crisis, for change in status and review of safety plan. Once a bed is available and patient is to be discharged [facility] will arranged transportation via counter clerk farm equipment parts to receiving facility.
[2018-08-05] MEDS: QUEtiapine 100 MG TAB 200 MG PO (09:10)
--- NOTE | 2018-08-05 09:11 | NUR.NOTE ---
Nursing Note: johana communicates to me through radio that the patient is verbally starting to escalate, as well as increased pacing and overall restlessness. CCC overhears conversation and she is with the provider, 200 mg stat dose of seroqulel was ordered, dose is taken to the patient, he ask in a loud voice if I am trying to put him to sleep, I told him that he appeared distressed, and I was trying to make him feel more comfortable. He yellsyou're trying to put me to sleep. he takes the pills , chews them, and swallows them, he is given decaf coffee and a nicotrol. johana monitoring for safety
--- NOTE | 2018-08-05 10:23 | NUR.NOTE ---
Nursing Note: Early recognition of escalating behaviors by the CPSO and promptly reporting led to a good outcome, patient is far more relaxed and is resting in his room right now
--- NOTE | 2018-08-05 11:18 | W.INMHPGNOTE ---
Date of service: 08/05/18 Time of Service: 11:18 Mental Health Crisis Note Presenting Issue How did you arrive at the ED and why did you come: Has been held at [facility] since 07-30 for unruly behaviors linked to aroldo. Precipitating Factors Currently, Preston denies being suicidal or homicidal at this time. He is concerned about medication reporting that he feels oversedated at this time. He is aware that he needs to cope with this and is trying to accept that current hospitalization status in regards to the evaluations that have been done. He expresses hope that a bed will be available to him soon. Disposition BEHAVIOR: anxious, pacing, slightly guarded EYE CONTACT: poor MOOD: anxious AFFECT: elevated APPETITE: good SLEEP(trouble falling/staying asleep: poor (significant medication adjustment occurring at this time) Plan Continue to seek involuntary hospitalization placement option until a bed is secured. Continue to try to treat the aroldo and complete bed checks as needed. [facility]no capacity today, but updated ppwk sent. [facility]. does not have involuntary beds at this time. [facility] is full at this time. [facility] was not accepting involuntary admission. [facility] has got new information on patient for possible admit being coordinated by [facility]. Signature Clinician's Name/Title: Golden Figueroa MA [facility]
--- NOTE | 2018-08-05 11:46 | MHPN_ITS ---
Date of service: 08/05/18 Time of Service: 11:18 Mental Health Crisis Note Presenting Issue How did you arrive at the ED and why did you come: Has been held at [facility] since 07-30 for unruly behaviors linked to aroldo. Precipitating Factors Currently, Preston denies being suicidal or homicidal at this time. He is concerned about medication reporting that he feels oversedated at this time. He is aware that he needs to cope with this and is trying to accept that current hospitalization status in regards to the evaluations that have been done. He expresses hope that a bed will be available to him soon. Disposition BEHAVIOR: anxious, pacing, slightly guarded EYE CONTACT: poor MOOD: anxious AFFECT: elevated APPETITE: good SLEEP(trouble falling/staying asleep: poor (significant medication adjustment occurring at this time) Plan Continue to seek involuntary hospitalization placement option until a bed is secured. Continue to try to treat the aroldo and complete bed checks as needed. [facility] [place] [facility] today, but updated ppwk sent. [facility]. does not have involuntary beds at this time. [facility] is full at this time. [facility] was not accepting involuntary admission. [facility] has got new information on patient for possible admit being coordinated by [facility]. Signature Clinician's Name/Title: Golden Figueroa MA [facility]
[2018-08-05] MEDS: LORazepam 1 MG TAB PO (13:16)
[2018-08-05] MEDS: Acetaminophen 500 MG TAB 1000 MG PO (13:16)
[2018-08-05] MEDS: QUEtiapine 300 MG TAB PO ×2 (14:00→19:21)
[2018-08-05] MEDS: Divalproex Sodium 500 MG TAB.ER.24H PO ×2 (14:00→15:25)
--- NOTE | 2018-08-05 14:00 | PGE_ITS ---
Date of Service Date of service: 08/05/18 Time of Service: 13:55 Assessment and Plan (1) Psychosis: Current visit: Yes Status: Acute medically remains stable with acute medical condition to account for his psychiatric disorder. Required 4 point restraints overnight. will increase depakote back to his home dose of 500 mg ER daily and 1000 mg at HS, level yesterday was 66, recommend ations that levels be closer to 100. will recheck level fridayAugust 08. also will increase seroquel to 300 mg three times daily, received a 200 mg dose this morning but within 5 hours is agitated again. continue one to one patient observation, continues to remain here on EE while awaiting inpatient psychiatric care. (2) Schizoaffective disorder: Current visit: Yes Status: Chronic see medication adjustment above. (3) Discharge planning issues: Current visit: Yes Status: Acute case management and mental health following. patient is retained on EE while awaiting inpatient psychiatric bed. Subjective Patient reports: no new complaints Interval history since last seen: Preston Arciniega is a 47 year old man with history of schizoaffective disorder who presented to the ED 07/30/2018 for increasing psychotic behavior. He reportedly had not been taking his usual medications. He is currently on EE status. He is pending placement for inpatient psychiatric care. He has 1:1 patient observation. Today, he is taking his medications as ordered. overnight he required 4 point restraints for severe agitation, unable to redirect. today he has been cooperative or sleeping. no restraints needed. he is eating and drinking, bowels and bladder functioning well. he denies any chest pain, shortness of breath or abdominal pain. staff reports no medical concerns. Exam Const General: cooperative, healthy appearing, comfortable and no acute distress Nutritional Appearance: average body habitus [facility] Head: normal to inspection, normocephalic and atraumatic Resp Effort & Inspection: normal respiratory effort and able to speak in complete sentences Auscultation: clear to auscultation bilaterally Cardio Rate: regular rate Rhythm: regular rhythm Heart Sounds: no murmurs GI Palpation: soft Auscultation: normal bowel sounds Skin General skin exam: no rashes or lesions noted Neuro General: alert and awake Extrem General: normal to inspection, full ROM and no edema Psych Appearance: grossly normal Speech and Movement: speech clear and restless Mood: irritable mood Affect: irritable affect Attitude: cooperative Insight: limited Judgment: poor Objective Objective Clinical Data: Vital Signs Temperature 36.9 C 08/05/18 07:50 Temperature Source Skin 08/05/18 07:50 Pulse 100 H 08/05/18 07:50 Pulse Rhythm Regular 08/05/18 07:58 Respiratory Rate 18 08/05/18 07:50 Respiratory Effort 08/05/18 07:58 Respiratory Depth Normal 08/05/18 07:58 Respiratory Pattern Normal 08/05/18 07:58 Blood Pressure 137/89 08/05/18 07:50 Blood Pressure Position Standing 07/30/18 17:19 Pulse Oximetry 97 08/05/18 07:50 Oxygen Delivery Method Room Air 08/05/18 07:50 Oxygen Flow Rate 0 08/05/18 07:50 Pain Level 0 08/03/18 09:17 Comment 08/03/18 11:35 Intake & Output 08/04/18 08/05/18 08/05/18 23:59 11:59 23:59 Intake Total 990 / 1230 240 / 1230 Balance 990 / 1230 240 / 1230 Intake: Oral 990 / 1230 240 / 1230 Other: Urine Color Yellow Yellow Urine Appearance Clear Clear Comment patient voided into the toilet. amount and appearance unknown. Voiding Methods Toilet Toilet Laboratory Results WBC 9.75 k/cumm (4.4-10.8) 08/05/18 06:30 RBC 5.33 m/cumm (4.50-6.00) 08/05/18 06:30 Hgb 16.3 g/dL (13.5-17.5) 08/05/18 06:30 Hct 47.5 % (40.0-50.0) 08/05/18 06:30 MCV 89.1 fL (80-95) 08/05/18 06:30 MCH 30.6 pg (27.0-33.0) 08/05/18 06:30 MCHC 34.3 g/dL (32.0-36.0) 08/05/18 06:30 RDW 13.4 % (11.8-14.1) 08/05/18 06:30 Plt Count 309 x1000/uL (130-400) 08/05/18 06:30 MPV 10.7 fL (8.0-11.0) 08/05/18 06:30 Immature Gran % 0.4 07/30/18 17:19 Neutrophils % 65.3 07/30/18 17:19 Lymphocytes % 21.7 07/30/18 17:19 Monocytes % 10.9 07/30/18 17:19 Eosinophils % 1.2 07/30/18 17:19 Basophils % 0.5 07/30/18 17:19 Absolute Neutrophils 9.07 k/cumm (1.2-6.7) H 07/30/18 17:19 Absolute Lymphocytes 3.01 k/cumm (1.2-3.4) 07/30/18 17:19 Absolute Monocytes 1.51 k/cumm (0.11-0.7) H 07/30/18 17: Absolute Eosinophils 0.17 k/cumm (0.0-0.7) 07/30/18 17: Absolute Basophils 0.07 k/cumm (0.0-0.2) 07/30/18 17:19 Differential Comment Diff reviewed 07/30/18 17:19 Sodium 137 mmol/L (136-145) 07/30/18 17:19 Potassium 3.7 mmol/L (3.5-5.1) 07/30/18 17:19 Chloride 97 mmol/L (98-107) L 07/30/18 17:19 Carbon Dioxide 27.8 mmol/L (21.0-32.0) 07/30/18 17:19 Anion Gap 12.2 mmol/L (3-11) H 07/30/18 17:19 BUN 11 mg/dL (7-18) 07/30/18 17:19 Creatinine 1.09 mg/dL (0.70-1.30) 07/30/18 17:19 Estimated GFR/1.73 m2 >= 60.00 (mL/min/1.73m2) 07/30/18 17:19 Glucose 128 mg/dL (70-100) H 07/30/18 17:19 Calcium 10.4 mg/dL (8.5-10.1) H 07/30/18 17:19 Total Bilirubin 0.7 mg/dL (0.2-1.0) 07/30/18 17:19 AST 23 U/L (15-37) 07/30/18 17:19 ALT 25 U/L (12-78) 07/30/18 17:19 Alkaline Phosphatase 126 U/L (46-116) H 07/30/18 17:19 Total Protein 9.1 g/dL (6.4-8.2) H 07/30/18 17:19 Albumin 4.7 g/dL (3.4-5.0) 07/30/18 17:19 TSH 1.82 uIU/mL (0.358-3.74) 07/30/18 17:19 Urine Color Yellow (Yellow) 08/01/18 14:15 Urine Clarity Clear 08/01/18 14:15 Urine pH 6.5 (5-8) 08/01/18 14:15 Ur Specific [place] 1.015 (1.005-1.025) 08/01/18 14:15 Urine Protein Negative mg/dL (Negative) 08/01/18 14:15 Urine Ketones Trace mg/dL (Negative) H 08/01/18 14:15 Urine Blood Negative (Negative) 08/01/18 14:15 Urine Nitrite Negative (Negative) 08/01/18 14:15 Urine Bilirubin Negative (Negative) 08/01/18 14:15 Urine Urobilinogen 0.2 EU/dL (Up TO 0.2) 08/01/18 14:15 Ur Leukocyte Esterase Negative (Negative) 08/01/18 14:15 Urine Glucose Negative mg/dL (Negative) 08/01/18 14:15 Salicylates 8.1 mg/dL (2.8-20.0) 07/30/18 17:19 Urine Opiates Screen Negative (Negative) 08/01/18 14:15 Urine Methadone Screen Negative (Negative) 08/01/18 14:15 Acetaminophen < 2 ug/mL (10-30) L 07/30/18 17:19 Ur Barbiturates Screen Negative (Negative) 08/01/18 14:15 Total Valproic Acid 66.7 ug/mL (50-100) 08/03/18 12:31 Ur Tricyclics Screen Negative (Negative) 08/01/18 14:15 Ur Amphetamines Screen Negative (Negative) 08/01/18 14:15 U Benzodiazepines Scrn Negative (Negative) 08/01/18 14:15 Urine Cocaine Screen Negative (Negative) 08/01/18 14:15 Ur THC Screen Positive (Negative) 08/01/18 14:15 Ethyl Alcohol < 3.0 mg/dL (<3) 07/30/18 17:19
--- NOTE | 2018-08-05 14:21 | NUR.NOTE ---
The Patient was given a PRN med to help calm his behavior. He took the meds and moved to the bed. Once the started to get tired the patient came to the door way and stated that he was getting tired and was just going to fall on his face and its going too be our fault. The CPSO told the nurse as fast as he could and the patient then went to the [facility] and sat down. A few moment later the nurse arrived at the door way and while talking over what to do about this behavior the patient got down on his hands and knees at the bed side and started to pray. He laid on his bed for a few minutes got back up and he is saying that he wants a assistant librarian. Nursing Note:
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
--- NOTE | 2018-08-05 18:31 | NUR.NOTE ---
Nursing Note: follow up observation on patient, he is restless, mildly agitated, he wants nicotrol cartridge which was given, he then tells nurse to leave his room,he remains in his room, and has not issued further threats to staff
[2018-08-05] MEDS: Mirtazapine 15 MG TAB 30 MG PO (22:14)
[2018-08-05] MEDS: Divalproex Sodium 500 MG TAB.ER.24H 1000 MG PO (22:14)
[2018-08-06] MEDS: LORazepam 1 MG TAB PO ×4 (03:59→22:12)
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
[2018-08-06] MEDS: Folic Acid 1 MG TAB PO (08:39)
[2018-08-06] MEDS: Divalproex Sodium 500 MG TAB.ER.24H PO (08:39)
--- NOTE | 2018-08-06 10:37 | W.INMHPGNOTE ---
Date of service: 08/06/18 Time of Service: 10:38 Mental Health Crisis Note Presenting Issue How did you arrive at the ED and why did you come: Preston has been at [facility] since 07-31 on an involuntary treatment hold under custody of [facility]. Precipitating Factors Preston denies suicidal and homicidal ideation, planning, intent, or recent attempts. However, he presents with elevated thought process with delusions of grandeur. His thoughts are tangential. He also reports feeling there are wires and cameras monitoring him and conversations in the room. From this, he focused on he and this marketing copywriter's position in the room. He had drawings on his whiteboard that were loosely associated to some of his ideas he discussed. Therefore, seemed to have difficulty understanding or accepting the treatment recommendations at this time. Disposition BEHAVIOR: changeable but trying to build rapport with this marketing copywriter during updated evaluation process. EYE CONTACT: fair MOOD: cooperative but distant with some pressured speech AFFECT: guarded/restless/anxious APPETITE: good SLEEP(trouble falling/staying asleep: reports he slept well, but also reports not wanting to sleep as much Plan Continue to hold on involuntary treatment status at [facility] until placement is completed. [facility] has one bed and is being pursued by Irene Mackenzie of [facility]. [facility] does not have any beds available for level one at this time. [facility]. [facility] is not accepting level one admits. Finally, [facility] also does not accept level one either (patient is too acute).
--- NOTE | 2018-08-06 10:54 | MHPN_ITS ---
Date of service: 08/06/18 Time of Service: 10:38 Mental Health Crisis Note Presenting Issue How did you arrive at the ED and why did you come: Preston has been at [facility] since 07-31 on an involuntary treatment hold under custody of [facility]. Precipitating Factors Preston denies suicidal and homicidal ideation, planning, intent, or recent attempts. However, he presents with elevated thought process with delusions of grandeur. His thoughts are tangential. He also reports feeling there are wires and cameras monitoring him and conversations in the room. From this, he focused on he and this policy writer's position in the room. He had drawings on his whiteboard that were loosely associated to some of his ideas he discussed. Therefore, seemed to have difficulty understanding or accepting the treatment recommendations at this time. Disposition BEHAVIOR: changeable but trying to build rapport with this policy writer during updated evaluation process. EYE CONTACT: fair MOOD: cooperative but distant with some pressured speech AFFECT: guarded/restless/anxious APPETITE: good SLEEP(trouble falling/staying asleep: reports he slept well, but also reports not wanting to sleep as much Plan Continue to hold on involuntary treatment status at [facility] until placement is completed. [facility] has one bed and is being pursued by Irene Mackenzie of [facility]. [facility] does not have any beds available for level one at this time. Jackeline from [facility] does not report any level one beds. [facility] is not accepting level one admits. Finally, [facility] also does not accept level one either (patient is too acute).
--- NOTE | 2018-08-06 14:06 | PDOC.CMPRO ---
- If Service Date Differs Date of service: 08/06/18 Time of Service: 14:06 Care Management Progress Note Preston continues as involuntary admission awaiting placement for psychiatric stabilization. SAROJ spoke with Irene Hunt [facility], today whom states that [place] does not have bed at this time. Irene does state [facility] will potentially have a bed available tomorrow. [facility], states that he spoke with Candice and that there are no beds available at this time. Huddle held with staff to discuss management of Preston and staff concerns with aggressive behaviors. INVOLUNTARY FOR INPATIENT PSYCHIATRIC STABILIZATION. EE completed and he remains on involuntary status. High risk for elopement and high risk for aggressive behaviors. Javier is unpredictable in terms of his response at this time and cannot agree to inpatient psychiatric treatment but is at risk for harming himself and others. Huddle: Date:08/06/2018 Safety plan has been established with care team, to adhere to patient goals, identify restrictions based on behavioral status, address nutrition, and determine allowed personal belongings, tools for hygiene and personal care. Determine level of activity including ambulation, level of supervision, visitors, and determine privileges based on behaviors and level of engagement. Preston, states he is being held against his will. Due to Dann's current presentation no change in the current Safety Plan today Mental Health continues to recommend inpatient psychiatric facility for stabilization as per huddle discussion. SAFETY PLAN: 1. Will remain on suicide precautions. In Paper Scrubs. 2. Will remain in room under direct supervision of one-on-one staff at all times provided by CPSO, BOG WORKER, CONVERTIBLE TOP INSTALLER labor relations manager. Due to safety concerns and verbal threats to staff Preston to remain behind the inner door in his room, which will remain opened. 3. May have paper cups, plates, finger foods, a metal spoon may be provided and accounted for at the end of the meal. 4. Follow [facility] Management of the Admitted Behavioral Health Patient policy. 5. Comfort bath system only. 6. No personal belongings, except nicotine inhaler at the bedside. 7. No visitors at this time. 8. Activities include, TV, coloring, paper, crayons at the discretion of the clinical staff. 9..No telephone at this time. In the event of an emergent phone call it will be supervised by staff 10. May use toothbrush with staff present - to be removed from room after use. 11. Due to INVOLUNTARY status, the patient must remain in the hospital. Second Cert was completed and approved on 07/31/18. [facility] will continue to search for placement and fax referrals to [place] facilities as identified. Safety plan will be updated daily. Please contact tape control skin or spar mill operator and [facility] Crisis, for change in status and review of safety plan. Once a bed is available and patient is to be discharged [facility] will arranged transportation via product design specialist to receiving facility.
--- NOTE | 2018-08-06 14:31 | CMPROGNOTE_ITS ---
- If Service Date Differs Date of service: 08/06/18 Time of Service: 14:06 Care Management Progress Note Preston continues as involuntary admission awaiting placement for psychiatric stabilization. SAROJ spoke with Irene Hunt [facility], today whom states that [place] does not have bed at this time. Irene does state [facility] will potentially have a bed available tomorrow. [facility], states that he spoke with Candice and that there are no beds available at this time. Huddle held with staff to discuss management of Preston and staff concerns with aggressive behaviors. INVOLUNTARY FOR INPATIENT PSYCHIATRIC STABILIZATION. EE completed and he remains on involuntary status. High risk for elopement and high risk for aggressive behaviors. Javier is unpredictable in terms of his response at this time and cannot agree to inpatient psychiatric treatment but is at risk for harming himself and others. Huddle: Date:08/06/2018 Safety plan has been established with care team, to adhere to patient goals, identify restrictions based on behavioral status, address nutrition, and determine allowed personal belongings, tools for hygiene and personal care. Determine level of activity including ambulation, level of supervision, visitors, and determine privileges based on behaviors and level of engagement. Preston, states he is being held against his will. Due to Dann's current presentation no change in the current Safety Plan today Mental Health continues to recommend inpatient psychiatric facility for stabilization as per huddle discussion. SAFETY PLAN: 1. Will remain on suicide precautions. In Paper Scrubs. 2. Will remain in room under direct supervision of one-on-one staff at all times provided by CPSO, PHARMACY INTAKE COORDINATOR, OPERATIONS ARCHITECT apron worker. Due to safety concerns and verbal threats to staff Preston to remain behind the inner door in his room, which will remain opened. 3. May have paper cups, plates, finger foods, a metal spoon may be provided and accounted for at the end of the meal. 4. Follow [facility] Management of the Admitted Behavioral Health Patient policy. 5. Comfort bath system only. 6. No personal belongings, except nicotine inhaler at the bedside. 7. No visitors at this time. 8. Activities include, TV, coloring, paper, crayons at the discretion of the clinical staff. 9..No telephone at this time. In the event of an emergent phone call it will be supervised by staff 10. May use toothbrush with staff present - to be removed from room after use. 11. Due to INVOLUNTARY status, the patient must remain in the hospital. Second Cert was completed and approved on 07/31/18. [facility] will continue to search for placement and fax referrals to [place] facilities as identified. Safety plan will be updated daily. Please contact property controller and [facility] Crisis, for change in status and review of safety plan. Once a bed is available and patient is to be discharged [facility] will arranged transportation via lime plant operator to receiving facility.
[2018-08-06] MEDS: QUEtiapine 300 MG TAB PO (14:50)
[2018-08-06 14:56] VITALS: BP 167/69; PULSE 80; RESP 20; TEMP 36.6; O2SAT 98
--- NOTE | 2018-08-06 19:10 | PDOC.MHPN2 ---
Date of service: 08/06/18 Time of Service: 19:11 Mental Health Progress Note Progress Note: Presenting Issue: Preston is at [facility] on the Med Surge unit on an EE status. He has been here since 07/31/18. Precipitating Factors: Preston denies SI and HI. He states that he is upset that he could not see his son today when his girlfriend showed up. I know he was here because I have this. Preston showed this clinician a 4-leaf clover that his 2 year old son made in preschool. He is moderately calm when I arrive but becomes a bit more agitated the longer I asked questions. He reports tonight that he feels there are cameras and microphones that are recording what he is doing and saying. He then states that there are a lot of kids that are going to need therapy now as a result. I clarified if he felt that was because of what we were discussing and he said no I watch the news. Preston tries to share his history of medications for his diagnosis of ADHD and Bipolar. He reported that he has struggled with dosages and financially being able to afford them through the years. In the end Preston was more agitated and stated that he knows how we work, you take my story and your story and you write the truth. Or what you think is the truth. He did not want to answer any more questions. Nurse, Marie reported that Preston's girlfriend did show up today with the son and Preston was calling to the son to come here. Marie said that the son ran down the hallway and Marie took the child and the girlfriend to the Cement Tester Assistant who had a discussion with the girlfriend that she can not show up like this and then took the girlfriend and the child down the back stairs to leave. Marie reported that this could have gone very negatively but she was impressed at how well Preston did with this situation. She reported that there have been a couple of times where the CPSO and Preston have puffed up to each other. Marie reported that she gave Preston the artwork done by his son. Disposition * Behavior: Behavior changes as the conversation goes on. He is unpredictable with his disposition and engaged and then not as engaged. *Eye Contact: eye contact is good depending on who he is speaking to. *Mood: Cooperative *Affect: Preston is restless and paces a lot. He feels that he is rights are being violated. *Appetite: Preston reports he is eating well. *Sleep(troubel falling/staying asleep): Preston initially states that we know how he is sleeping because we are watching him. He states that he slept well and felt refreshed when he woke. Plan(please elaborate and include that physician is consulted with plan and/or placement): Preston to stay at [facility] on EE status and it was told to this clinician that possibly tomorrow he could go to [facility]. No beds tonight from any hospital. LIANA: Anabella [facility]: No call back Rody: Nancy No call back from nursing supervisor roller shop but states she does not believe they are taking anyone. Isidro: Kelsea Harvey [place]: Marychuy [facility]: Saloni Clinician's Name , Title, and Signature Nasrin Naranjo MS Emergency Services Clinician Make sure that you are photocopying and submitting this to [facility] records Dept. to be scanned into chart.
--- NOTE | 2018-08-06 19:33 | MHPN_ITS ---
Date of service: 08/06/18 Time of Service: 19:11 Mental Health Progress Note Progress Note: Presenting Issue: Preston is at [facility] on the Med Surge unit on an EE status. He has been here since 07/31/18. Precipitating Factors: Preston denies SI and HI. He states that he is upset that he could not see his son today when his girlfriend showed up. I know he was here because I have this. Preston showed this clinician a 4-leaf clover that his 2 year old son made in preschool. He is moderately calm when I arrive but becomes a bit more agitated the longer I asked questions. He reports tonight that he feels there are cameras and microphones that are recording what he is doing and saying. He then states that there are a lot of kids that are going to need therapy now as a result. I clarified if he felt that was because of what we were discussing and he said no I watch the news. Preston tries to share his history of medications for his diagnosis of ADHD and Bipolar. He reported that he has struggled with dosages and financially being able to afford them through the years. In the end Preston was more agitated and stated that he knows how we work, you take my story and your story and you write the truth. Or what you think is the truth. He did not want to answer any more questions. Nurse, Marie reported that Preston's girlfriend did show up today with the son and Preston was calling to the son to come here. Marie said that the son ran down the hallway and Marie took the child and the girlfriend to the Membership Secretary who had a discussion with the girlfriend that she can not show up like this and then took the girlfriend and the child down the back stairs to leave. Marie reported that this could have gone very negatively but she was impressed at how well Preston did with this situation. She reported that there have been a couple of times where the CPSO and Preston have puffed up to each other. Marie reported that she gave Preston the artwork done by his son. Disposition * Behavior: Behavior changes as the conversation goes on. He is unpredictable with his disposition and engaged and then not as engaged. *Eye Contact: eye contact is good depending on who he is speaking to. *Mood: Cooperative *Affect: Preston is restless and paces a lot. He feels that he is rights are being violated. *Appetite: Preston reports he is eating well. *Sleep(troubel falling/staying asleep): Preston initially states that we know how he is sleeping because we are watching him. He states that he slept well and felt refreshed when he woke. Plan(please elaborate and include that physician is consulted with plan and/or placement): Preston to stay at [facility] on EE status and it was told to this clinician that possibly tomorrow he could go to [facility]. No beds tonight from any hospital. LIANA: Anabella [facility]: No call back Rody: Nancy No call back from nursing research contracts supervisor but states she does not believe they are taking anyone. Isidro: Kelsea Harvey [place]: Marychuy [facility]: Saloni Clinician's Name , Title, and Signature Nasrin Naranjo MS Emergency Services Clinician Make sure that you are photocopying and submitting this to [facility] records Dept. to be scanned into chart.
--- NOTE | 2018-08-06 19:48 | W.PM.PROGNOT ---
Date of Service Date of service: 08/06/18 Time of Service: 12:30 Assessment and Plan (1) Psychosis: Current visit: Yes Status: Acute Likely component of a manic/Bipolar episode. I have now increased his depakote and scheduled his seroquel. I've also added scheduled ativan. The patient and his behavior are deemed aggressive and dangerous to our staff, and his placement in an appropriate setting is imperative. (2) Bipolar disorder: Current visit: Yes Status: Chronic as above (3) Schizoaffective disorder: Current visit: Yes Status: Chronic as above (4) Cervical spondylosis without myelopathy: Current visit: No Status: Chronic F/u as outpatient (5) Discharge planning issues: Current visit: Yes Status: Acute Awaiting placement Subjective Interval history since last seen: The patient pulled the code lever in his room this morning. The patient was seen in his room but not auscultated for the fear of bringing a stethoscope into his room. He complained of his chronic neck pain and shoulder muscle tightness - he states this isn't new to him. He states his pain is between 4 and 6. He does not answer other questions directly. He refused his morning dose of seroquel. We spoke about how his behavior is intimidating and is being deemed aggressive by staff and that we would all feel more safe if he took his medications. He asked me why I am clenching my teeth. I asked why he thought that was. He said because you think I am aggressive. He then wanted to reach for my necklace, at which point I felt he might pull it and harm me and the conversation had to end. Exam Narrative Exam Narrative: General: Middle aged male, impulsive, angry, made me feel unsafe to be in his room Neuro: no evidence of EPS Psych: aggressive, not respecting personal limits, but thoughts are somewhat more organized HEENT: EOMI, MMM Lungs: while not auscultated, does not appear to have any physical difficulty with breathing Extremities: no obvious edema Objective Objective Clinical Data: Vital Signs Temperature 36.6 C 08/06/18 14:56 Temperature Source Tympanic 08/06/18 14:56 Pulse 80 08/06/18 14:56 Pulse Rhythm Regular 08/05/18 23:42 Respiratory Rate 20 08/06/18 14:56 Respiratory Effort Non-Labored 08/06/18 07:45 Respiratory Depth Normal 08/06/18 07:45 Respiratory Pattern Normal 08/06/18 07:45 Blood Pressure 167/69 H 08/06/18 14:56 Blood Pressure Position Standing 07/30/18 17:19 Pulse Oximetry 98 08/06/18 14:56 Oxygen Delivery Method Room Air 08/06/18 14:56 Oxygen Flow Rate 0 08/06/18 14:56 Pain Level 0 08/03/18 09:17 Comment 08/03/18 11:35 Intake & Output 08/05/18 08/06/18 08/06/18 23:59 11:59 23:59 Intake Total 240 / 1230 250 / 250 Balance 240 / 1230 250 / 250 Intake: Oral 240 / 1230 250 / 250 Other: Urine Color Pale Yellow Urine Appearance Clear Urine Odor None Comment voids in the tiolet Patient voiding independently in toilet Laboratory Results WBC 9.75 k/cumm (4.4-10.8) 08/05/18 06:30 RBC 5.33 m/cumm (4.50-6.00) 08/05/18 06:30 Hgb 16.3 g/dL (13.5-17.5) 08/05/18 06:30 Hct 47.5 % (40.0-50.0) 08/05/18 06:30 MCV 89.1 fL (80-95) 08/05/18 06:30 MCH 30.6 pg (27.0-33.0) 08/05/18 06:30 MCHC 34.3 g/dL (32.0-36.0) 08/05/18 06:30 RDW 13.4 % (11.8-14.1) 08/05/18 06:30 Plt Count 309 x1000/uL (130-400) 08/05/18 06:30 MPV 10.7 fL (8.0-11.0) 08/05/18 06:30 Immature Gran % 0.4 07/30/18 17:19 Neutrophils % 65.3 07/30/18 17:19 Lymphocytes % 21.7 07/30/18 17:19 Monocytes % 10.9 07/30/18 17:19 Eosinophils % 1.2 07/30/18 17:19 Basophils % 0.5 07/30/18 17:19 Absolute Neutrophils 9.07 k/cumm (1.2-6.7) H 07/30/18 17:19 Absolute Lymphocytes 3.01 k/cumm (1.2-3.4) 07/30/18 17:19 Absolute Monocytes 1.51 k/cumm (0.11-0.7) H 07/30/18 17:19 Absolute Eosinophils 0.17 k/cumm (0.0-0.7) 07/30/18 17:19 Absolute Basophils 0.07 k/cumm (0.0-0.2) 07/30/18 17:19 Differential Comment Diff reviewed 07/30/18 17:19 Sodium 137 mmol/L (136-145) 07/30/18 17:19 Potassium 3.7 mmol/L (3.5-5.1) 07/30/18 17:19 Chloride 97 mmol/L (98-107) L 07/30/18 17:19 Carbon Dioxide 27.8 mmol/L (21.0-32.0) 07/30/18 17:19 Anion Gap 12.2 mmol/L (3-11) H 07/30/18 17:19 BUN 11 mg/dL (7-18) 07/30/18 17:19 Creatinine 1.09 mg/dL (0.70-1.30) 07/30/18 17:19 Estimated GFR/1.73 m2 >= 60.00 (mL/min/1.73m2) 07/30/18 17:19 Glucose 128 mg/dL (70-100) H 07/30/18 17:19 Calcium 10.4 mg/dL (8.5-10.1) H 07/30/18 17:19 Total Bilirubin 0.7 mg/dL (0.2-1.0) 07/30/18 17:19 AST 23 U/L (15-37) 07/30/18 17:19 ALT 25 U/L (12-78) 07/30/18 17:19 Alkaline Phosphatase 126 U/L (46-116) H 07/30/18 17:19 Total Protein 9.1 g/dL (6.4-8.2) H 07/30/18 17:19 Albumin 4.7 g/dL (3.4-5.0) 07/30/18 17:19 TSH 1.82 uIU/mL (0.358-3.74) 07/30/18 17:19 Urine Color Yellow (Yellow) 08/01/18 14:15 Urine Clarity Clear 08/01/18 14:15 Urine pH 6.5 (5-8) 08/01/18 14:15 Ur Specific [place] 1.015 (1.005-1.025) 08/01/18 14:15 Urine Protein Negative mg/dL (Negative) 08/01/18 14:15 Urine Ketones Trace mg/dL (Negative) H 08/01/18 14:15 Urine Blood Negative (Negative) 08/01/18 14:15 Urine Nitrite Negative (Negative) 08/01/18 14:15 Urine Bilirubin Negative (Negative) 08/01/18 14:15 Urine Urobilinogen 0.2 EU/dL (Up TO 0.2) 08/01/18 14:15 Ur Leukocyte Esterase Negative (Negative) 08/01/18 14:15 Urine Glucose Negative mg/dL (Negative) 08/01/18 14:15 Salicylates 8.1 mg/dL (2.8-20.0) 07/30/18 17:19 Urine Opiates Screen Negative (Negative) 08/01/18 14:15 Urine Methadone Screen Negative (Negative) 08/01/18 14:15 Acetaminophen < 2 ug/mL (10-30) L 07/30/18 17:19 Ur Barbiturates Screen Negative (Negative) 08/01/18 14:15 Total Valproic Acid 66.7 ug/mL (50-100) 08/03/18 12:31 Ur Tricyclics Screen Negative (Negative) 08/01/18 14:15 Ur Amphetamines Screen Negative (Negative) 08/01/18 14:15 U Benzodiazepines Scrn Negative (Negative) 08/01/18 14:15 Urine Cocaine Screen Negative (Negative) 08/01/18 14:15 Ur THC Screen Positive (Negative) 08/01/18 14:15 Ethyl Alcohol < 3.0 mg/dL (<3) 07/30/18 17:19
[2018-08-06] MEDS: Divalproex Sodium 500 MG TAB.ER.24H 1000 MG PO (21:30)
[2018-08-06] MEDS: Mirtazapine 15 MG TAB 30 MG PO (21:30)
[2018-08-06] MEDS: QUEtiapine 300 MG TAB 600 MG PO (21:30)
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
[2018-08-07] MEDS: LORazepam 1 MG TAB PO ×2 (05:51→11:08)
[2018-08-07] MEDS: QUEtiapine 300 MG TAB PO (05:51)
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
--- NOTE | 2018-08-07 10:42 | W.INMHPGNOTE ---
Date of service: 08/07/18 Time of Service: 10:43 Mental Health Crisis Note Presenting Issue How did you arrive at the ED and why did you come: Preston has been at [facility] for approximately one week due to erratic behavior and risks of harm to self and others. Precipitating Factors Preston presents with a manic mood. His thought process is loosely associated. His thoughts are disorganized and are not representational of content of discussions. He denies being suicidal or homicidal at this time. However, he has had periods of dysregulated behavior and/or emotions while he has been at [facility]. He remains disoriented to time, place, and situation. Disposition BEHAVIOR: pacing, restless EYE CONTACT: fair MOOD: elevated AFFECT: anxious to poverty of content APPETITE: good SLEEP(trouble falling/staying asleep: slept through night, but continues to express concern over sedating effects of medication Plan Preston will be transported to [facility] via [employer]. He will remain on involuntary treatment status. He is being discharged from [facility] for this transport. Signature Clinician's Name/Title: Golden [facility]a [facility]
--- NOTE | 2018-08-07 10:47 | PDOC.CMDIS ---
- If Service Date Differs Date of service: 08/07/18 Time of Service: 10:47 LACE Index Scoring Tool - Questions: Length of Stay (in days): 4 - 6 Acuity (Admit via E.D.?): Yes E.D. Visits: 1 - Answers: Total Score: 8 Risk of Readmission: Low Risk Care Management Discharge Reason for Hospitalization: Acute Psychosis Discharge Plan: Preston will DC to [facility] for psychiatric placement. He will transport via [facility] at [address] Rogers of the above, as well as Cheryl, RN CC,. provided Cheryl, RN CC, with the phone number for RN to RN report, and requested that this be called once Preston leaves [facility] (Per [place] request). Patient/Family Education Needs: Review DC instructions, any limitations, and discuss 'Ask Me three' Services Needed at Discharge: Psychiatric Facility ([place]), Transportation ([facility])
--- NOTE | 2018-08-07 10:49 | MHPN_ITS ---
Date of service: 08/07/18 Time of Service: 10:43 Mental Health Crisis Note Presenting Issue How did you arrive at the ED and why did you come: Preston has been at [facility] for approximately one week due to erratic behavior and risks of harm to self and others. Precipitating Factors Preston presents with a manic mood. His thought process is loosely associated. His thoughts are disorganized and are not representational of content of discussions. He denies being suicidal or homicidal at this time. However, he has had periods of dysregulated behavior and/or emotions while he has been at [facility]. He remains disoriented to time, place, and situation. Disposition BEHAVIOR: pacing, restless EYE CONTACT: fair MOOD: elevated AFFECT: anxious to poverty of content APPETITE: good SLEEP(trouble falling/staying asleep: slept through night, but continues to express concern over sedating effects of medication Plan Preston will be transported to [facility] via [employer]. He will remain on involuntary treatment status. He is being discharged from [facility] for this transport. Signature Clinician's Name/Title: Golden Fig[facility]ero[facility]
--- NOTE | 2018-08-07 10:51 | CMDISCH_ITS ---
- If Service Date Differs Date of service: 08/07/18 Time of Service: 10:47 LACE Index Scoring Tool - Questions: Length of Stay (in days): 4 - 6 Acuity (Admit via E.D.?): Yes E.D. Visits: 1 - Answers: Total Score: 8 Risk of Readmission: Low Risk Care Management Discharge Reason for Hospitalization: Acute Psychosis Discharge Plan: Preston will DC to [facility] for psychiatric placement. He will transport via [facility] at [address] Rogers of the above, as well as Cheryl, RN CC,. provided Cheryl, RN CC, with the phone number for RN to RN report, and requested that this be called once Preston leaves [facility] (Per [place] request). Patient/Family Education Needs: Review DC instructions, any limitations, and discuss 'Ask Me three' Services Needed at Discharge: Psychiatric Facility ([place]), Transportation ([facility])
[2018-08-07 11:00] VITALS: BP 111/80; PULSE 116; RESP 18; TEMP 36.1; O2SAT 99
[2018-08-07] MEDS: Aspirin 325 MG TAB PO (11:07)
[2018-08-07] MEDS: Folic Acid 1 MG TAB PO (11:08)
[2018-08-07] MEDS: Divalproex Sodium 500 MG TAB.ER.24H PO (11:08)
--- NOTE | 2018-08-07 11:46 | NUR.NOTE ---
Nursing Note: This nurse gave report to EUSEBIO Craven at [facility] @ [id number].
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
== END 2018-08-07 12:00 | disposition short-term general hospital (02) | DRG 885 ==
LOC: ER 08-02 19:18 → MS 08-03 10:26
PROVIDERS: Nurse Practitioner; Nurse Practitioner Family; Student in an Organized Health Care Education/Training Program; Admitting Provider Family Medicine; Emergency Provider Physician Assistant; PCP General Practice; Visit Provider Family Medicine
DX: F30.2 Manic episode, severe with psychotic symptoms (principal); F25.0 Schizoaffective disorder, bipolar type; R45.6 Violent behavior; T42.6X6A Underdosing of other antiepileptic and sedative-hypnotic drugs, initial encounter; R45.1 Restlessness and agitation; M47.812 Spondylosis without myelopathy or radiculopathy, cervical region; Z78.1 Physical restraint status; Z75.1 Person awaiting admission to adequate facility elsewhere; Z91.128 Patient's intentional underdosing of medication regimen for other reason
CPT/HCPCS: 36415; 80053; 80307; 85027; 96372; 96374; 99219; 99232; 99233; 99239; 99285; 80164; 80320; 80329; 81003; 84443; 85025; 99226; 99284; G0378; J1630; J2060; J3490

== ENCOUNTER 2018-08-21 10:30 | Outpatient (CLI) | payer MEDICARE, SELFPAY ==
[2018-08-21 11:13] LABS: VALPROIC ACID 65.2 ug/mL (50-100)
== END 2018-08-21 10:50 ==
PROVIDERS: PCP General Practice; Visit Provider Nurse Practitioner Psychiatric/Mental Health
DX: F25.0 Schizoaffective disorder, bipolar type (principal); Z51.81 Encounter for therapeutic drug level monitoring; Z79.899 Other long term (current) drug therapy
CPT/HCPCS: 36415; 80164

== ENCOUNTER 2018-08-31 14:40 | Emergency (ER) | payer MEDICARE, SELFPAY ==
[2018-08-31] MEDS: LORazepam 1 MG TAB (14:40)
--- NOTE | 2018-08-31 15:12 | ED.GENADUL_ITS ---
Discharge Plan Discharge Details Primary Care Provider: Rickey Sher ED Provider: Darrick De La Cruz Home Meds and New Rx's Prescriptions: No Action folic acid 1 MG tablet 1 mg PO DAILY RF: 0 aspirin 325 MG tablet 325 mg PO DAILY RF: 0 mirtazapine [Remeron SolTab] 30 MG tablet,disintegrating 30 mg PO HS RF: 0 divalproex 500 MG tablet,delayed release (DR/EC) 1,000 mg PO HS RF: 0 divalproex 500 MG tablet,delayed release (DR/EC) 500 mg PO DAILY RF: 0 meloxicam 15 MG tablet 15 mg PO DAILY PRN PRNQty: 30 RF: 1 quetiapine [Seroquel] 300 mg Tablet 300 mg PO TID Qty: 0 RF: 0 Nicotrol 10 mg Cartridge 10 mg Inhalation Q2H PRN PRNQty: 0 RF: 0 acetaminophen [Mapap Extra Strength] 500 mg Tablet 1,000 mg PO Q4H PRN PRNQty: 0 RF: 0 lorazepam 1 mg Tablet 1 mg PO Q4H PRN PRNQty: 0 RF: 0 lorazepam 1 mg Tablet 1 mg PO Q6H Qty: 0 RF: 0 HPI General Mode of arrival: ambulatory . Date/Time Provider Initiated Documentation: 08/31/18 15:03 . Limitations to Documentation: no limitations . Information obtained by: patient and family . History of Present Illness 47 year old M presents to the emergency department with the chief complaint of Acting strangely on MedSurg, described as moderate, Quality is described as constant, Patient started experiencing this day(s) and it has been constant. No relieving factors improve symptom(s), Other factors that worsen symptoms (Not taking medications) . Patient did receive the following treatments prior to arrival, none Related Data Home Medications Medication Instructions Recorded Confirmed divalproex 1,000 mg PO HS 06/07/15 08/08/16 divalproex 500 mg PO DAILY 06/07/15 08/02/18 mirtazapine [Remeron SolTab] 30 mg PO HS 06/07/15 08/02/18 meloxicam 15 mg PO DAILY PRN PRN #30 tablet 05/30/16 08/08/16 folic acid 1 mg PO DAILY tab-cap 07/17/16 08/08/16 aspirin 325 mg PO DAILY tab-cap 08/15/16 acetaminophen [Mapap Extra 1,000 mg PO Q4H PRN PRN #0 tab 08/07/18 Strength] lorazepam 1 mg PO Q4H PRN PRN #0 tab 08/07/18 lorazepam 1 mg PO Q6H #0 tab 08/07/18 nicotine [Nicotrol] 10 mg INHALATION Q2H PRN PRN #0 ea 08/07/18 quetiapine [Seroquel] 300 mg PO TID #0 tab 08/07/18 Previous Rx's Medication Instructions Recorded meloxicam 15 mg PO DAILY PRN PRN #30 tablet 05/30/16 acetaminophen [Mapap Extra 1,000 mg PO Q4H PRN PRN #0 tab 08/07/18 Strength] lorazepam 1 mg PO Q4H PRN PRN #0 tab 08/07/18 lorazepam 1 mg PO Q6H #0 tab 08/07/18 nicotine [Nicotrol] 10 mg INHALATION Q2H PRN PRN #0 ea 08/07/18 quetiapine [Seroquel] 300 mg PO TID #0 tab 08/07/18 Allergies Allergy/AdvReac Type Severity Reaction Status Date / Time No Known Allergies Allergy Unverified 07/30/18 17:28 General ROSA: 2 Review of Systems Review of Systems Patient unable to cooperate with review of systems Unobtainable due to mental status PFSH Social History Smoking/Tobacco Use Status: Never Alcohol Intake: never Drug use: Daily Substance use type: marijuana Additional Social history: unable to assess
[2018-08-31 15:17] VITALS: BP 138/105; PULSE 112; RESP 20; TEMP 37.1; O2SAT 100
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
[2018-08-31 15:32] LABS: Abs Immature Grans 0.07 k/cumm (0.0-0.09); Absolute Basophil Count 0.07 k/cumm (0.0-0.2); Absolute Monocyte Count 1.38 k/cumm (0.11-0.7); Basophils % 0.4; Eosinophils % 1.4; HCT 47.1 % (40.0-50.0); HGB 16.5 g/dL (13.5-17.5); Immature Grans % 0.4; Lymphocytes % 17.1; Mean Corpuscular Hemoglobin 30.9 pg (27.0-33.0); Mean Corpuscular Volume 88.2 fL (80-95); Mean Platelet Volume 9.5 fL (8.0-11.0); Monocytes % 8.3; Neutrophils % 72.4; Platelet Count 385 x1000/uL (130-400); RBC 5.34 m/cumm (4.50-6.00); RBC Distribution Width 14.7 % (11.8-14.1); White Blood Cell Count 16.62 k/cumm (4.4-10.8)
[2018-08-31 15:36] LABS: Absolute Eosinophil Count 0.23 k/cumm (0.0-0.7); Absolute Lymphocyte Count 2.84 k/cumm (1.2-3.4); Absolute Neutrophil Count 12.03 k/cumm (1.2-6.7)
[2018-08-31 15:47] LABS: VALPROIC ACID 47.7 ug/mL (50-100)
[2018-08-31 15:49] LABS: Salicylate 6.7 mg/dL (2.8-20.0)
[2018-08-31 15:53] LABS: Acetaminophen < 2 ug/mL (10-30)
[2018-08-31 15:56] LABS: ALT 31 U/L (12-78); AST 19 U/L (15-37); Albumin 4.1 g/dL (3.4-5.0); Alkaline Phosphatase 126 U/L (46-116); Anion Gap 12.5 mmol/L (3-11); BUN 12 mg/dL (7-18); Bilirubin, Total 0.4 mg/dL (0.2-1.0); CO2 27.5 mmol/L (21.0-32.0); CREATININE 0.97 mg/dL (0.70-1.30); Calcium 9.3 mg/dL (8.5-10.1); Chloride 100 mmol/L (98-107); Glucose 113 mg/dL (70-100); Potassium 3.5 mmol/L (3.5-5.1); Sodium 140 mmol/L (136-145); TSH 0.96 uIU/mL (0.358-3.74); Total Protein 7.9 g/dL (6.4-8.2)
[2018-08-31] MEDS: QUEtiapine 300 MG TAB PO (15:56)
[2018-08-31] MEDS: Valproic Acid 250 MG CAP 1000 MG PO (15:56)
[2018-08-31 16:11] LABS: ETHANOL BLOOD < 3.0 mg/dL (<3)
[2018-08-31 16:21] LABS: Bilirubin Negative (Negative); Blood Negative (Negative); Clarity Clear; Glucose Negative (Negative); Ketones Trace mg/dL (Negative); Leukocyte Esterase Negative (Negative); Nitrite Negative (Negative); Specific Gravity 1.015 (1.005-1.025); Urobilinogen 0.2 EU/dL (Up TO 0.2)
[2018-08-31 16:33] LABS: *AMPHETAMINES SCREEN URINE Negative (Negative); *BARBITURATES SCREEN URINE Negative (Negative); *BENZODIAZEPINES SCREEN URINE Negative (Negative); Cannabinoids THC POSITIVE (Negative); Cocaine Screen,Urine Negative (Negative); METHADONE URINE SCREEN Negative (Negative); OPIATES URINE SCREEN Negative (Negative)
[2018-08-31 16:36] LABS: Tricyclic Antidepressants Negative (Negative)
--- NOTE | 2018-08-31 16:55 | PDOC.MHCN ---
Date of service: 08/31/18 Time of Service: 16:56 Mental Health Crisis Note Presenting Issue How did you arrive at the ED and why did you come: Preston came to [facility] due to belief he had that his children were here. Due to confusion when approached, it became apparent to hospital staff that further evaluation for mental status was needed. Precipitating Factors Preston denies being suicidal or homicidal at this time. However, he states he will protect his children. He is unresponsive to some questions and has difficulty comprehending basic questions of orientation. He makes poor eye contact and and seems subdued while in the emergency room. He is unable to fully explain what he is doing here, and does not seem to have insight at this time. Overall, his judgment Disposition BEHAVIOR: disoriented to confused EYE CONTACT: poor MOOD: axious AFFECT: subdued to tense APPETITE: poor SLEEP(trouble falling/staying asleep: poor Plan Application for involuntary treatment has been filed.
--- NOTE | 2018-08-31 17:11 | PDOC.MHCN_ITS ---
Date of service: 08/31/18 Time of Service: 16:56 Mental Health Crisis Note Presenting Issue How did you arrive at the ED and why did you come: Preston came to [facility] due to belief he had that his children were here. Due to confusion when approached, it became apparent to hospital staff that further evaluation for mental status was needed. Precipitating Factors Preston denies being suicidal or homicidal at this time. However, he states he will protect his children. He is unresponsive to some questions and has difficulty comprehending basic questions of orientation. He makes poor eye contact and and seems subdued while in the emergency room. He is unable to fully explain what he is doing here, and does not seem to have insight at this time. Overall, his judgment Disposition BEHAVIOR: disoriented to confused EYE CONTACT: poor MOOD: axious AFFECT: subdued to tense APPETITE: poor SLEEP(trouble falling/staying asleep: poor Plan Application for involuntary treatment has been filed.
--- NOTE | 2018-08-31 18:25 | NUR.NOTE ---
Nursing Note: After patient brought to ER room, is cooperative and follows commands. Took medication with some encouragement and changed into safety clothing with coaxing as well. Has not had any violent or disruptive behaviors. Was given a meal for dinner which patient ate. Offered and accepted fluids throughout the afternoon.
--- NOTE | 2018-08-31 18:44 | PDOC.ERCMPRO ---
- If Service Date Differs Date of service: 08/31/18 Time of Service: 18:44 Care Management Progress Note Preston is a 47 year old male with a history of bipolar, psychosis, and scizoaffective disorder. Preston arrives to the ED today with his significant other Maggie. Maggie is concerned with Preston's behavior and presentation including the suicidal statements she reports he made at home. Preston was released from [facility] 08/18. Per Maggie Preston has not wanted to leave the home since his discharge from [facility]. She states for the last four days he has not slept she does not believe he has been taking his medications. She reports that he has been taking things apart at home and he has been unable to express his needs or thoughts at home per report nor in the emergency department. Preston thoughts have have been random while in the ED and he delusional and agitated. When Preston arrived to the ED his behavior was escalated, he appears to not he did not want to stay in the ED and was requesting to see Maggie. Per primary nurse Preston received a dose of seroquel, depakene and ativan in the ED. CM did attempt to meet with Preston at the bedside for the second certification. Preston did not answer any questions during the assessment. Plan will be to revisit the 2nd certification at 2030 once he is more alert. Huddle participants: Saloni Wasserman, RN primary, EUSEBIO Cabral supervisor corduroy cutting, Omid Jules [facility] and EUSEBIO Langston INVOLUNTARY FOR INPATIENT PSYCHIATRIC STABILIZATION. Safety plan has been established with Care team, to adhere to patient goals, identify restrictions based on behavioral status, address nutrition, and determine allowed personal belongings, tools for hygiene and personal care. Determine level of activity including ambulation, level of supervision, visitors, and determine privileges based on behaviors and level of engagement by pt. SAFETY PLAN: 1. Will remain on suicide precautions. In Paper Clothes 2. Will remain in room under direct supervision of one-on-one staff at all times provided by CPSO; NANCY, ARIANNA editorial manager. 3. May have paper cups, plates, finger foods only. 4. Follow [facility] Management of the Admitted Behavioral Health Patient policy. 5. Comfort bath system only. 6. No personal belongings 7. Visitors-No visitors at this time 8. Activities: crayons and paper or coloring books, may have television if available. 9. Bathroom privileges: CPSO with patient at all times when out of the room. 10. Phone: No phone contact at this time Patient is currently Involuntarily at [facility] and seeking inpatient admission when a bed becomes available. [facility] Frontline Payroll Machine Operator will continue seeking placement. Please contact the Laminator Hand Thread Twister ([phone]) and [facility] Payroll Machine Operator ([phone]) for any needed changes in the Safety Plan. Safety plan has been provided to interdepartmental care team.
--- NOTE | 2018-08-31 18:47 | CMPROGNOTE_ITS ---
- If Service Date Differs Date of service: 08/31/18 Time of Service: 18:44 Care Management Progress Note Preston is a 47 year old male with a history of bipolar, psychosis, and scizoaffective disorder. Preston arrives to the ED today with his significant other Maggie. Maggie is concerned with Preston's behavior and presentation including the suicidal statements she reports he made at home. Preston was released from [facility] 08/18. Per Maggie Preston has not wanted to leave the home since his discharge from [facility]. She states for the last four days he has not slept she does not believe he has been taking his medications. She reports that he has been taking things apart at home and he has been unable to express his needs or thoughts at home per report nor in the emergency department. Preston thoughts have have been random while in the ED and he delusional and agitated. When Preston arrived to the ED his behavior was escalated, he appears to not he did not want to stay in the ED and was requesting to see Maggie. Per primary nurse Preston received a dose of seroquel, depakene and ativan in the ED. CM did attempt to meet with Preston at the bedside for the second certification. Preston did not answer any questions during the assessment. Plan will be to revisit the 2nd certification at 2030 once he is more alert. Huddle participants: Saloni Wasserman, RN primary, EUSEBIO Cabral supervisor poultry farm, Omid Jules [facility] and EUSEBIO Langston INVOLUNTARY FOR INPATIENT PSYCHIATRIC STABILIZATION. Safety plan has been established with Care team, to adhere to patient goals, identify restrictions based on behavioral status, address nutrition, and determine allowed personal belongings, tools for hygiene and personal care. Determine level of activity including ambulation, level of supervision, visitors, and determine privileges based on behaviors and level of engagement by pt. SAFETY PLAN: 1. Will remain on suicide precautions. In Paper Clothes 2. Will remain in room under direct supervision of one-on-one staff at all times provided by CPSO; NANCY, ARIANNA curb and gutter laborer. 3. May have paper cups, plates, finger foods only. 4. Follow [facility] Management of the Admitted Behavioral Health Patient policy. 5. Comfort bath system only. 6. No personal belongings 7. Visitors-No visitors at this time 8. Activities: crayons and paper or coloring books, may have television if available. 9. Bathroom privileges: CPSO with patient at all times when out of the room. 10. Phone: No phone contact at this time Patient is currently Involuntarily at [facility] and seeking inpatient admission when a bed becomes available. [facility] Frontline Activities Concierge will continue seeking placement. Please contact the Director Of Undergraduate Admissions Registrar [employer] ([phone]) and [facility] Activities Concierge ([phone]) for any needed changes in the Safety Plan. Safety plan has been provided to interdepartmental care team.
--- NOTE | 2018-08-31 19:19 | PDOC.MHCN ---
Date of service: 08/31/18 Time of Service: 19:20 Mental Health Crisis Note Presenting Issue How did you arrive at the ED and why did you come: Patient arrived at ED with his s/o and he has been here following EE status and awaiting bed placement . Precipitating Factors He is currently awaiting an evaluation for a second certification from [facility] Psychiatrist, which occurs at 6:45.. Disposition BEHAVIOR: He has been medicated and he is sleeping.. EYE CONTACT: n/a MOOD: n/a AFFECT: n/a APPETITE: n/a SLEEP(trouble falling/staying asleep: n/a Plan The [facility] Psychiatrist attempted to do a face to face interview but patient is asleep. Based on paperwork and the attending physician, Dr. De La Cruz. the psychiatrist had enough to preliminary approve a second certification. He will phone back and attempt another face to face at 8:30 with the [facility] Senior Accounting Analyst present. [facility] had some beds available and was the only one taking referrals at this time. Paperwork was transmitted by fax. Signature Clinician's Name/Title: Dhara Hicks [facility] Emergency Services Clinician
--- NOTE | 2018-08-31 19:27 | PDOC.MHCN_ITS ---
Date of service: 08/31/18 Time of Service: 19:20 Mental Health Crisis Note Presenting Issue How did you arrive at the ED and why did you come: Patient arrived at ED with his s/o and he has been here following EE status and awaiting bed placement . Precipitating Factors He is currently awaiting an evaluation for a second certification from [facility] Psychiatrist, which occurs at 6:45.. Disposition BEHAVIOR: He has been medicated and he is sleeping.. EYE CONTACT: n/a MOOD: n/a AFFECT: n/a APPETITE: n/a SLEEP(trouble falling/staying asleep: n/a Plan The [facility] Psychiatrist attempted to do a face to face interview but patient is asleep. Based on paperwork and the attending physician, Dr. De La Cruz. the psychiatrist had enough to preliminary approve a second certification. He will phone back and attempt another face to face at 8:30 with the [facility] Field Artillery Crewmember present. [facility] had some beds available and was the only one taking referrals at this time. Paperwork was transmitted by fax. Signature Clinician's Name/Title: Dhara Hicks [facility] Emergency Services Clinician
--- NOTE | 2018-08-31 19:55 | NUR.NOTE ---
Nursing Note: Patient sleeping in room. evidenced by chest rise and fall with resp rate WNL. --Thomas KAPLAN
[2018-09-01] MEDS: Nicotine 21 MG/24 HR PATCH (00:20)
[2018-09-01] MEDS: Mirtazapine 15 MG TAB 30 MG PO (00:20)
--- NOTE | 2018-09-01 02:23 | NUR.NOTE ---
Nursing Note: Patient was up once to use restroom without incidence. Patient asked for nicotine patch which was ordered and placed on patient without issue. Patient back to bed and remeron (see MAR) given. Patient remains asleep at this time with chest rise and fall evidenced by resp. rate WNL. --Thomas KAPLAN
[2018-09-01] MEDS: LORazepam 1 MG TAB 2 MG PO (07:20)
[2018-09-01] MEDS: Divalproex 500 MG TABEC 1500 MG PO (08:28)
[2018-09-01] MEDS: QUEtiapine 300 MG TAB PO (08:28)
--- NOTE | 2018-09-01 11:02 | PDOC.MHCN ---
Date of service: 09/01/18 Time of Service: 11:02 Mental Health Crisis Note Presenting Issue How did you arrive at the ED and why did you come: Preston arrived at the emergency room due to believing his child was here. He was disoriented and could not describe what he believed to be the concern. Precipitating Factors Preston denies being suicidal or homicidal at this time. He does have a history of major mental illness with symptoms of delusional thought, paranoia, and hallucinations. There is a history of violent behaviors although, he is not violent at this time. He recently was released from an inpatient hospitalization admission. However, he has not taken medication for four days. Disposition BEHAVIOR: disoriented to confused EYE CONTACT: poor MOOD: anxious AFFECT: distant, condensed APPETITE: fair SLEEP(trouble falling/staying asleep: poor Plan Involuntary hospitalization process has begun. [facility] completed[facility] also if full due to unit acuity. [facility] is not taking involuntary admission. [facility] is full, and [facility] reports it also has a high unit acuity. [facility] also was unable to provide a bed at its hosptial.
--- NOTE | 2018-09-01 11:08 | PDOC.MHCN_ITS ---
Date of service: 09/01/18 Time of Service: 11:02 Mental Health Crisis Note Presenting Issue How did you arrive at the ED and why did you come: Preston arrived at the emergency room due to believing his child was here. He was disoriented and could not describe what he believed to be the concern. Precipitating Factors Preston denies being suicidal or homicidal at this time. He does have a history of major mental illness with symptoms of delusional thought, paranoia, and hallucinations. There is a history of violent behaviors although, he is not violent at this time. He recently was released from an inpatient hospitalization admission. However, he has not taken medication for four days. Disposition BEHAVIOR: disoriented to confused EYE CONTACT: poor MOOD: anxious AFFECT: distant, condensed APPETITE: fair SLEEP(trouble falling/staying asleep: poor Plan Involuntary hospitalization process has begun. [facility] is completed[facility] also if full due to unit acuity. [facility] is not taking involuntary admission. [facility] is full, and [facility] reports it also has a high unit acuity. [facility] also was unable to provide a bed at its hosptial.
--- NOTE | 2018-09-01 13:52 | CMPROGNOTE_ITS ---
Care Management Progress Note INVOLUNTARY FOR INPATIENT PSYCHIATRIC STABILIZATION. Safety plan has been established with Care team, to adhere to patient goals, identify restrictions based on behavioral status, address nutrition, and determine allowed personal belongings, tools for hygiene and personal care. Determine level of activity including ambulation, level of supervision, visitors, and determine privileges based on behaviors and level of engagement by pt. SAFETY PLAN: 1. Will remain on suicide precautions. In Paper Clothes 2. Will remain in room under direct supervision of one-on-one staff at all times provided by CPSO; NANCY, COLLAR SEPARATOR heat sealing machine operator. 3. May have paper cups, plates, finger foods only. 4. Follow [facility] Management of the Admitted Behavioral Health Patient policy. 5. Comfort bath system only. 6. No personal belongings 7. Visitors-No visitors at this time 8. Activities: crayons and paper or coloring books, may have television if available. 9. Bathroom privileges: CPSO with patient at all times when out of the room. 10. Phone: No phone contact at this time Patient is currently Involuntarily at [facility] and seeking inpatient admission when a bed becomes available. [facility] Frontline Test Kitchen Home Economist will continue seeking calvin cement. Please contact the Repair Supervisor Art Coordinator ([phone]) and [facility] Test Kitchen Home Economist ([phone]) for any needed changes in the Safety Plan. Safety plan has been provided to interdepartmental care team.
[2018-09-01 16:07] VITALS: BP 139/91
[2018-09-01 16:39] VITALS: BP 139/91; PULSE 84; RESP 20; TEMP 37.1; O2SAT 100
== END 2018-09-01 18:27 | disposition short-term general hospital (02) ==
PROVIDERS: Emergency Provider Emergency Medicine; PCP General Practice
DX: F29 Unspecified psychosis not due to a substance or known physiological condition (principal); F25.9 Schizoaffective disorder, unspecified; F31.9 Bipolar disorder, unspecified; R45.851 Suicidal ideations; Z91.14 Patient's other noncompliance with medication regimen
CPT/HCPCS: 36415; 80053; 80307; 99285; 80164; 80320; 80329; 81003; 84443; 85025; 99284

== ENCOUNTER 2018-10-09 09:26 | Outpatient (CLI) | payer MEDICARE, SELFPAY ==
[2018-10-09 10:07] LABS: VALPROIC ACID 42.3 ug/mL (50-100)
== END 2018-10-09 09:46 ==
PROVIDERS: PCP General Practice; Visit Provider Nurse Practitioner Psychiatric/Mental Health
DX: F25.0 Schizoaffective disorder, bipolar type (principal); Z51.81 Encounter for therapeutic drug level monitoring; Z79.899 Other long term (current) drug therapy
CPT/HCPCS: 36415; 80164

== ENCOUNTER 2019-01-29 09:42 | Outpatient (CLI) | payer MEDICARE, SELFPAY | END 2019-01-29 10:02 | PROVIDERS: PCP General Practice; Visit Provider Nurse Practitioner Psychiatric/Mental Health | DX: F25.0 Schizoaffective disorder, bipolar type (principal); Z51.81 Encounter for therapeutic drug level monitoring; Z79.899 Other long term (current) drug therapy | CPT/HCPCS: 36415; 80164 ==

== ENCOUNTER 2019-11-14 08:21 | Emergency (ER) | payer MEDICARE, SELFPAY ==
[2019-11-14] VITALS (34 sets, daily range): BP systolic 104–172; BP diastolic 61–116; PULSE 61–104; RESP 12–32; TEMP 35.4–36.9; O2SAT 95–100
--- NOTE | 2019-11-14 | DI.CT_ITS ---
EXAM: CT THORACIC LUMBAR SPINE REC CLINICAL HISTORY: PT FELL DOWN STAIRS/UNRESPONSIVE TECHNIQUE: Images were reconstructed from the CT of the chest, abdomen and pelvis COMPARISON: CR,XR XR PORTABLE CHEST AP POST LINE from 11/14/2019 FINDINGS: Thoracic spine: There is no evidence fracture. Endplate osteophytes are seen. Alignment appears nor mal. There is no gross evidence of a disc herniation. There is no paraspinal hematoma. An endotrac heal tube and nasogastric tube are seen. Lumbar spine: There is no evidence of fracture, spondylolysis or spondylolisthesis. Schmorl's nodes are seen at the superior endplates of L2 through L4. There are bridging osteophytes anteriorly at L3 -4. There is mild loss of disc height and small endplate osteophytes at L5-S1 causing mild bilateral neural foraminal narrowing. There is no paraspinal hematoma. IMPRESSION: Degenerative changes. No acute abnormality.
[2019-11-14] MEDS: Naloxone 0.4 MG/ML VIAL IVP (08:25)
[2019-11-14] MEDS: Succinylcholine 200 MG/10 ML VIAL 100 MG IVP (08:37)
[2019-11-14] MEDS: Normal Saline - Diluent 50 ML VIAL IV (08:43)
--- NOTE | 2019-11-14 08:44 | DI.RAD_ITS ---
EXAM: XR PORTABLE CHEST AP POST LINE CLINICAL HISTORY: s/p intubation TECHNIQUE: 2D digital imaging was performed. COMPARISON: CR CHEST 2 VIEWS PA,LAT from 08/24/2016 FINDINGS: LUNGS: Suboptimally inflated. No pleural abnormality seen. HEART: Normal. Nasogastric tube projects in the stomach. Endotracheal tube is positioned with the t ip at the level of the aortic arch. IMPRESSION: Satisfactory position of endotracheal tube and nasogastric tube. DATA REPOSITORY: RADIATION DOSE DELIVERED:
--- NOTE | 2019-11-14 08:53 | ED.GENADUL_ITS ---
Discharge Plan Disposition Patient Disposition: [facility] Condition: Critical Discharge Details Chief Complaint: HeadInjury Clinical Impression: Blunt trauma, Facial bone fracture Primary Care Provider: Rickey Sher ED Provider: Darrick De La Cruz Home Meds and New Rx's Prescriptions: No Action folic acid 1 MG tablet 1 mg PO DAILY RF: 0 mirtazapine [Remeron SolTab] 30 MG tablet,disintegrating 15 mg PO HS RF: 0 divalproex 500 MG tablet,delayed release (DR/EC) 1,500 mg PO HS RF: 0 hydroxyzine pamoate [Vistaril] 50 mg Capsule 50 mg PO TID RF: 0 Medical Decision Making 48-year-old male brought by EMS after report of being found unresponsive for a period of 4 hours after fall downstairs. Reported to EMS of the patient drinking alcohol for 12 November. He has a history of schizoaffective disorder, bipolar disorder no noted seizure history. His medications, per the record, include divalproex, folate, hydroxyzine, Remeron. His tetanus status is up-to-date in 2013. He has a distant history of a cervical fracture of C5 and subsequently records note fusion by Dr. Mahad Browne posteriorly from C4 to C6. He arrives unresponsive with no gag reflex and a negative corneal reflex. He was placed in C-spine & longboard precautions by EMS. Vital signs stable. Primary survey reveals left periorbital and orbital ecchymosis, left chest abrasion/ecchymosis. The patient is not hypoglycemic. He was given 0.4 mg of Narcan with no response. Patient was intubated for airway protection. He was placed on propofol drip with Valium 5mg x1. He is referred for CT scans of head, cervical spine, chest, abdomen and pelvis with spine recons. Labs: Blood cell count 19, hematocrit 49, platelets 231. Chemistries unremarkable, AST 55, ALT 54, alcohol level of 313, urine positive for opiates, amphetamines, THC. Screening EKG reveals a normal sinus rhythm with a rate of 67, the QRS is narrow and there is no ST segment elevation. His QTC is 422. CT: I question small punctate left subarachnoid hemorrhage. Radiologist notes left face, orbital, skull base fractures. I question left C6 transverse process fracture. Chest/abdomen/pelvis: Reported negative Case discussed with Dr. Gaffney of [facility] trauma service and patient acc epted with transport per [facility] helicopter service. I did discuss the case with the patient's girlfriend Maggie Eugene, available at [phone]. Lab Data Lab results reviewed: Yes I reviewed the patient's lab results. Labs: Laboratory Results - last 24 hr 11/14/19 11/14/19 11/14/19 08:30 08:30 08:30 WBC 19.64 H RBC 5.41 Hgb 17.2 Hct 49.6 MCV 91.7 MCH 31.8 MCHC 34.7 RDW 14.1 Plt Count 231 MPV 9.6 Immature Gran % 0.6 Neutrophils % 88.3 Lymphocytes % 6.1 Monocytes % 4.3 Eosinophils % 0.6 Basophils % 0.1 Absolute Neutrophils 17.34 H Absolute Lymphocytes 1.20 Absolute Monocytes 0.84 H Absolute Eosinophils 0.12 Absolute Basophils 0.02 PT 10.1 INR 1.0 APTT 24.1 Sodium 139 Potassium 4.0 Chloride 100 Carbon Dioxide 28.0 Anion Gap 11.0 BUN 5 L Creatinine 1.14 Estimated GFR/1.73 m2 >= 60.00 Glucose 129 H Calcium 8.9 Magnesium 2.2 Total Bilirubin 0.3 AST 55 H ALT 54 Alkaline Phosphatase 150 H Troponin I < 0.05 Total Protein 8.9 H Albumin 4.1 Urine Color Urine Clarity Urine pH Ur Specific Hudson Urine Protein Urine Ketones Urine Blood Urine Nitrite Urine Bilirubin Urine Urobilinogen Ur Leukocyte Esterase Urine RBC Urine WBC Ur Epithelial Cells Urine Crystals Urine Bacteria Urine Casts Urine Mucus Urine Other Ur Culture Indicated? Urine Glucose Urine Opiates Screen Urine Methadone Screen Ur Barbiturates Screen Ur Tricyclics Screen Ur Amphetamines Screen U Benzodiazepines Scrn Urine Cocaine Screen Ur THC Screen Ethyl Alcohol 313.6 11/14/19 11/14/19 09:05 09:05 WBC RBC Hgb Hct MCV MCH MCHC RDW Plt Count MPV Immature Gran % Neutrophils % Lymphocytes % Monocytes % Eosinophils % Basophils % Absolute Neutrophils Absolute Lymphocytes Absolute Monocytes Absolute Eosinophils Absolute Basophils PT INR APTT Sodium Potassium Chloride Carbon Dioxide Anion Gap BUN Creatinine Estimated GFR/1.73 m2 Glucose Calcium Magnesium Total Bilirubin AST ALT Alkaline Phosphatase Troponin I Total Protein Albumin Urine Color Yellow Urine Clarity Clear Urine pH 6.0 Ur Specific Hudson >= 1.030 H Urine Protein 30 H Urine Ketones 15 H Urine Blood Trace-lysed H Urine Nitrite Negative Urine Bilirubin Negative Urine Urobilinogen 0.2 Ur Leukocyte Esterase Negative Urine RBC 0-2 Urine WBC 3-5 Ur Epithelial Cells Few Urine Crystals Few amorphous Urine Bacteria Negative Urine Casts Negative Urine Mucus Negative Urine Other Rare transitional Ur Culture Indicated? No Urine Glucose Negative Urine Opiates Screen Positive A Urine Methadone Screen Negative Ur Barbiturates Screen Negative Ur Tricyclics Screen Negative Ur Amphetamines Screen Positive A U Benzodiazepines Scrn Negative Urine Cocaine Screen Negative Ur THC Screen Positive A Ethyl Alcohol HPI General Mode of arrival: EMS . Date/Time Provider Initiated Documentation: 11/14/19 08:25 . Limitations to Documentation: other (Unresponsive trauma) . Information obtained by: EMS . History of Present Illness 48 year old M presents to the emergency department with the chief complaint of Report of fall downstairs 4 hours ago, unresponsive since. Report of alcoh, described as severe, Patient started experiencing this hour(s) and it has been constant. Patient notes denies seizure. Patient did receive the following treatments prior to arrival, none Related Data Home Medications Medication Instructions Recorded Confirmed divalproex 1,500 mg PO HS 06/07/15 08/31/18 mirtazapine [Remeron SolTab] 15 mg PO HS 06/07/15 08/31/18 folic acid 1 mg PO DAILY tab-cap 07/17/16 08/31/18 hydroxyzine pamoate [Vistaril] 50 mg PO TID 08/31/18 08/31/18 Allergies Allergy/AdvReac Type Severity Reaction Status Date / Time No Known Allergies Allergy Unverified 09/01/18 04:28 General Stated Complaint: HeadInjury ROSA: 1 Review of Systems Narrative: Reported to be drinking alcohol for November. Report by EMS of fall downstairs 4 hours prior, unresponsive since. Unobtainable due to mental status [facility] Social History Smoking/Tobacco Use Status: Never Alcohol Intake: never Drug use: Daily Substance use type: marijuana Additional Social history: unable to assess Exam Narrative Exam Narrative: GEN: Unresponsive on backboard and c-collar with high flow oxygen HEAD: Normocephalic, left orbital/periorbital ecchymosis and swelling ENT: Mucous membranes moist, oropharynx with oral airway present, External ear exam unremarkable EYES: Miotic, unresponsive, no corneal reflex NECK: C-collar present, no step-off or deformity CHEST/RESP: Nontender, diffuse rhonchi, left chest wall ecchymosis/abrasion CARDIOVASCULAR: RRR, no murmur, rub suzi. 2+ Rad pulse bilateral ABDOMEN: Soft, nontender, no mass. +Bowel sounds Back: No step-off or deformity, no significant abrasions or lacerations EXT: Well-developed musculature, left hand abrasion overlying fourth/fifth metacarpal Neuro: Unresponsive, negative gag reflex, negative corneal reflex Psych: Unable to assess Procedures Intubation Time out performed: Yes sedative: none paralytic: Succinylcholine Mg Given: 100 Laryngoscope: Hammad ET Tube Size: 8 ET Tube Uncuffed: Yes Tube Placement Confirmation: visualized tube passing through cords and equal breath sounds bilaterally Patient Tolerated Procedure: well Critical Care Time Critical Care Time Critical Care Time: Yes Total Critical Care Time: 50 Attestation: Bedside care, review of records, discussion with consultants, exclusive of procedures.
[2019-11-14] MEDS: Lactated Ringers 1,000 ML 1000 ML IV (09:00)
[2019-11-14] MEDS: diazePAM 10 MG/2 ML SYR (09:00)
[2019-11-14 09:13] LABS: Abs Immature Grans 0.11 k/cumm (0.0-0.09); Absolute Basophil Count 0.02 k/cumm (0.0-0.2); Basophils % 0.1; Eosinophils % 0.6; HCT 49.6 % (40.0-50.0); HGB 17.2 g/dL (13.5-17.5); Immature Grans % 0.6 %; Lymphocytes % 6.1; Mean Corp. HGB Concentration 34.7 g/dL (32.0-36.0); Mean Corpuscular Hemoglobin 31.8 pg (27.0-33.0); Mean Corpuscular Volume 91.7 fL (80-95); Mean Platelet Volume 9.6 fL (8.0-11.0); Monocytes % 4.3; Neutrophils % 88.3; Platelet Count 231 x1000/uL (130-400); RBC 5.41 m/cumm (4.50-6.00); RBC Distribution Width 14.1 % (11.8-14.1); White Blood Cell Count 19.64 k/cumm (4.4-10.8)
[2019-11-14 09:14] LABS: Absolute Eosinophil Count 0.12 k/cumm (0.0-0.7); Absolute Monocyte Count 0.84 k/cumm (0.11-0.7); Absolute Neutrophil Count 17.34 k/cumm (1.2-6.7)
[2019-11-14 09:16] LABS: Bilirubin Negative (Negative); Blood Trace-lysed (Negative); Clarity Clear (Clear); Glucose Negative (Negative); Ketones 15 mg/dL (Negative); Leukocyte Esterase Negative (Negative); Nitrite Negative (Negative); Specific Gravity >= 1.030 (1.005-1.025); Urobilinogen 0.2 EU/dL (Up TO 0.2)
[2019-11-14 09:28] LABS: Bacteria Negative HPF (Negative); C & S Indicated? No; Casts Negative LPF (Negative); Crystals Few Amorphous HPF (Negative); Epithelial Cells Few HPF (Negative); Mucus Negative (Negative); Other Cells Rare Transitional (Negative); RBC 0-2 HPF (0-2)
[2019-11-14 09:28] LABS: PTT Activated 24.1 sec (21.0-31.4); Prothrombin Time 10.1 sec (9.3-11.0)
[2019-11-14 09:29] LABS: ALT 54 U/L (16-63); AST 55 U/L (15-37); Albumin 4.1 g/dL (3.4-5.0); Alkaline Phosphatase 150 U/L (46-116); BUN 5 mg/dL (7-18); Bilirubin, Total 0.3 mg/dL (0.2-1.0); CREATININE 1.14 mg/dL (0.70-1.30); Calcium 8.9 mg/dL (8.5-10.1); Chloride 100 mmol/L (98-107); ETHANOL BLOOD 313.6 mg/dL (<3); Glucose 129 mg/dL (74-106); Magnesium 2.2 mg/dL (1.8-2.4); Sodium 139 mmol/L (136-145); Total Protein 8.9 g/dL (6.4-8.2)
--- NOTE | 2019-11-14 09:29 | DI.VRAD_ITS ---
PROCEDURE INFORMATION: Exam: XR Chest, 1 View Exam date and time: 11/14/2019 9:09 AM Age: 48 years old Clinical indication: Device placement; Ett placement (vent status); Patient HX: S/P intubation; Additional info: PT fell down stairs/unresponsive TECHNIQUE: Imaging protocol: XR of the chest Views: 1 view. COMPARISON: CR CHEST 2 VIEWS PA,LAT 08/24/2016 10:56 AM FINDINGS: Tubes, catheters and devices: An endotracheal tube is present with its tip approximately 2.5 cm above the chio. A nasogastric tube is present with its tip in the stomach. Lungs: Unremarkable. No consolidation. Pleural space: Unremarkable. No pleural effusion. No pneumothorax. Heart/Mediastinum: Unremarkable. No cardiomegaly. Bones/joints: No acute bone or joint abnormality. IMPRESSION: 1. No acute abnormality. 2. Endotracheal and nasogastric tubes as described above. Dictated and Authenticated by: David Bey MD. Ordering:ЕКАТЕРИНА Hollingsworth MD
[2019-11-14 09:30] LABS: Troponin I < 0.05 ng/mL (<0.06)
[2019-11-14 09:31] LABS: *AMPHETAMINES SCREEN URINE POSITIVE (Negative); *BARBITURATES SCREEN URINE Negative (Negative); *BENZODIAZEPINES SCREEN URINE Negative (Negative); Cannabinoids THC POSITIVE (Negative); Cocaine Screen,Urine Negative (Negative); METHADONE URINE SCREEN Negative (Negative); OPIATES URINE SCREEN POSITIVE (Negative)
[2019-11-14 09:32] LABS: Tricyclic Antidepressants Negative (Negative)
[2019-11-14] MEDS: Omnipaque 350 MG/ML 100 ML BTL IJ (10:02)
--- NOTE | 2019-11-14 10:03 | DI.CT_ITS ---
EXAM: CT HEAD CERVICAL SPINE WO CLINICAL HISTORY: UNRESPONSIVE, FALL DOWN STAIRS. TECHNIQUE: Imaging Protocol: Axial computed tomography images with coronal and sagittal reformatted images were created and reviewed COMPARISON: CT HEAD AND CSPINE W/O CONTRAST from 08/24/2016 FINDINGS: Head CT There is streak artifact secondary to surrounding equipment. Ventricles and Extra axial spaces: Normal in size and morphology for the patient's age. Hemorrhage: None. Cerebral parenchyma: Normal. Midline shift: None. Brainstem/Cerebellum: Normal. Calvarium: Normal. There is a nondisplaced fracture of the left zygoma. There is also a nondisplaced fracture of the an terior and lateral mendoza of the left maxillary sinus. The fracture extends to involve the floor of t he left orbit. There is no evidence of inferior rectus entrapment. There is mucosal thickening seen throughout the sinuses. No air-fluid levels are seen. The globes appear intact. There is soft tis jailyn swelling around the left orbit and left maxilla. Temporomandibular joints appear intact. Cervical Spine CT BONES: No acute fracture is seen. There is hardware and previous laminectomy spanning the C4 through C6 levels. There is an old compression deformity of C5. The alignment appears normal. An endotrac heal tube and nasogastric tube are noted. SOFT TISSUES: No paraspinal hematoma. The airway appears intact. Degenerative disc changes and facet degenerative changes are seen . IMPRESSION: Head CT: Nondisplaced fractures of the left zygoma, floor of the left orbit and anterior and lateral mendoza of left maxillary sinus. C-spine CT: Postsurgical and degenerative changes, no acute abnormality. RADIATION DOSE DELIVERED: Total DLP DATA REPOSITORY: All CT scans at this facility are submitted to the National Radiology Data Registry (NRDR) Dose Index Registry (DIR) with the [employer] (ACR). RADIATION OPTIMIZATION: All CT scans at this facility use at least one of these dose optimization te chniques: automated exposure control; mA and/or kV adjustment per patient size (includes targeted exa ms where dose is matched to clinical indication); or iterative reconstruction.
--- NOTE | 2019-11-14 10:04 | DI.CT_ITS ---
EXAM: CT CHEST/ABD/PEL W CLINICAL HISTORY: UNRESPONSIVE, FALL DOWN STAIRS. TECHNIQUE: Imaging Protocol: Axial computed tomography images with coronal and sagittal reformatted images were created and reviewed CONTRAST MATERIAL: Intravenous: Omnipaque 350 Contrast volume:100 cc Oral: no COMPARISON: No exams were available for comparison FINDINGS: CHEST: An endotracheal tube is noted, with the tip at the level of the chio. A nasogastric tube projects in the stomach. Heart and great vessels appear intact. Evaluation of the lungs is somewhat limited due to motion. No pneumothorax is seen. There are mild emphysematous changes at the lung apices. D ependent changes are seen posteriorly. No rib or spine fractures are seen. ABDOMEN: Exam is mildly limited by patient motion. Liver: Mild fatty infiltration. No measurable mass. No evidence of laceration or perihepatic fluid. Gallbladder and biliary tract: No radiodense calculus or dilation. Pancreas: Normal density, no abnormal calcifications or inflammatory process. Spleen: Normal. Kidneys: Normal size, contour and axis. No radiodense stones or obstructive uropathy. No masses seen. Adrenal glands: No masses seen. Aorta: Abdominal portion non-dilated. Lymph nodes: Within normal limits. PELVIS: Bladder: Coronado catheter, decompressed. Bowel: Mild sigmoid diverticulosis. No obstruction or bowel wall thickening. Normal appendix Peritoneal cavity: No ascites, collection or mesenteric inflammatory response. No free air Bones: Within normal limits. Reproductive organs: Within normal limits. IMPRESSION: No acute abnormality is identified in the chest, abdomen, and pelvis. RADIATION DOSE DELIVERED: Total DLP DATA REPOSITORY: All CT scans at this facility are submitted to the National Radiology Data Registry (NRDR) Dose Index Registry (DIR) with the [employer] (ACR). RADIATION OPTIMIZATION: All CT scans at this facility use at least one of these dose optimization te chniques: automated exposure control; mA and/or kV adjustment per patient size (includes targeted exa ms where dose is matched to clinical indication); or iterative reconstruction.
[2019-11-14] MEDS: Normal Saline Flush 10 ML SYR IVP (10:10)
[2019-11-14] MEDS: PROPOFOL 1,000 MG/100 ML BTL 2.272 MG IVPB (10:17)
--- NOTE | 2019-11-14 10:22 | DI.VRAD_ITS ---
Addendum created by Mahad Bennett MD on 11/14/2019 10:58:00 AM EDT CORRECTIONS: Exam: CT Head Without Contrast FINDINGS: Brain: No acute brain parenchymal abnormality demonstrated by CT. Possible 1-2 mm left frontoparietal subdural hematoma. IMPRESSION: 1. Possible 1-2 mm left frontoparietal subdural hematoma. 2. Left facial/orbital/skull base fractures. Exam: CT Cervical Spine Without Contrast FINDINGS: Vertebrae: Prior compression injury of the C5 vertebral body and laminectomies at C4 through C6. Prior posterior kandi fusion at these levels. The craniocervical junction is maintained. The atlantodens interval is not widened. Nondisplaced left C6 transverse process fracture. IMPRESSION: 1. Prior posttraumatic and postoperative changes. 2. Nondisplaced left C6 transverse process fracture. THIS REPORT CONTAINS FINDINGS THAT MAY BE CRITICAL TO PATIENT CARE. The exam findings were verbally communicated by me via telephone conference to VALENTIN CASTRO at 10:46 AM EDT on 11/14/2019. The findings were acknowledged and understood. Initial report created on 11/14/2019 10:22:13 AM EDT PROCEDURE INFORMATION: Exam: CT Head Without Contrast Exam date and time: 11/14/2019 9:26 AM Age: 48 years old Clinical indication: Injury or trauma; Fall; Initial encounter; Blunt trauma (contusions or hematomas); With loss of consciousness; Not specified; Patient HX: PT fell down stairs/unresponsive TECHNIQUE: Imaging protocol: Computed tomography of the head without contrast. COMPARISON: No relevant prior studies available. FINDINGS: Brain: No acute brain parenchymal abnormality demonstrated by CT. No intracranial hemorrhage. No extraaxial fluid collections. Ventricles: No hydrocephalus. No hydrocephalus. Bones/joints: There are nondisplaced fractures involving the anterior and posterolateral mendoza of the left maxillary antrum, lateral left orbital floor, left sphenoid bone, and left zygomatic arch. Sinuses: There is multifocal mucoperiosteal thickening consistent with chronic sinusitis. High attenuation fluid present in the sphenoid sinus, likely blood. Mastoid air cells: The mastoid air cells are aerated. Soft tissues: There is left frontal/periorbital, left frontoparietal, and high right paramidline posterior superficial soft tissue swelling compatible with contusions/hematomas. IMPRESSION: 1. No acute intracranial abnormality by CT. 2. Left facial/orbital/skull base fractures. PROCEDURE INFORMATION: Exam: CT Cervical Spine Without Contrast Exam date and time: 11/14/2019 9:26 AM Age: 48 years old Clinical indication: Injury or trauma; Fall; Initial encounter; Blunt trauma (contusions or hematomas); With loss of consciousness; Not specified; Patient HX: PT fell down stairs/unresponsive TECHNIQUE: Imaging protocol: Computed tomography images of the cervical spine without contrast. Radiation optimization: All CT scans at this facility use at least one of these dose optimization techniques: automated exposure control; mA and/or kV adjustment per patient size (includes targeted exams where dose is matched to clinical indication); or iterative reconstruction. COMPARISON: No relevant prior studies available. FINDINGS: Vertebrae: Prior compression injury of the C5 vertebral body and laminectomies at C4 through C6. Prior posterior kandi fusion at these levels. The craniocervical junction is maintained. The atlantodens interval is not widened. No acute fracture noted. Discs/Spinal canal/Neural foramina: There is disc and uncovertebral joint degeneration at C3-C4. Disc space narrowing at C4-C5 and C5-C6 with disc calcification and possible partial ankylosis. Degenerative foraminal stenosis most prominent at C3-C4. Soft tissues: No acute soft tissue abnormality. Lungs: Paraseptal emphysema affecting the right lung apex. IMPRESSION: Prior posttraumatic and postoperative changes. No acute osseous injury identified. Dictated and Authenticated by: Mahad Bennett MD. Ordering:ЕКАТЕРИНА Hollingsworth MD
[2019-11-14 10:24] LABS: BE (Venous) -0.1 mmol/L (-3-3); HCO3 (Venous) 25 mmol/L (22-28); O2 Sat (Venous) 83 % (70-80); TCO2 (Venous) 23 mmol/L (22-29); pCO2 (Venous) 46 mm/Hg (34-47); pH (Venous) 7.35 (7.35-7.45); pO2 (Venous) 51 mm/Hg (28-44)
[2019-11-14] MEDS: Lactated Ringers 1,000 ML 150 ML IV (10:32)
--- NOTE | 2019-11-14 10:55 | DI.VRAD_ITS ---
PROCEDURE INFORMATION: Exam: CT Chest With Contrast Exam date and time: 11/14/2019 9:38 AM Age: 48 years old Clinical indication: Injury or trauma; Fall; Initial encounter; Generalized; Blunt trauma (contusions or hematomas); Injury details: PT fell down staits - unresponsive; Additional info: PT fell down stairs/unresponsive TECHNIQUE: Imaging protocol: Computed tomography of the chest with intravenous contrast. Radiation optimization: All CT scans at this facility use at least one of these dose optimization techniques: automated exposure control; mA and/or kV adjustment per patient size (includes targeted exams where dose is matched to clinical indication); or iterative reconstruction. Contrast material: OMNI 350; Contrast volume: 100 ml; Contrast route: INTRAVENOUS (IV); COMPARISON: No relevant prior studies available. FINDINGS: Tubes, catheters and devices: Endotracheal tube adjacent to the chio. Recommend repositioning. Nasogastric tube in the region of the gastric antrum. Lungs: Mild paraseptal emphysema right apex. Mild paraseptal emphysema left lung. No visualized pneumothorax. Pleural space: See Lungs finding. Heart: No pericardial effusion Mediastinal space: Soft tissues of the mediastinum appear unremarkable. Aorta: Unremarkable. No aortic aneurysm. Lymph nodes: Unremarkable. No enlarged lymph nodes. Diaphragm: Subtle nodular density adjacent to the right hemidiaphragm of approximately 4 mm. Follow-up. Bones/joints: No visualized rib fracture Soft tissues: Soft tissues about the thorax unremarkable Other findings: No dissection. thoracic inlet is unremarkable. Prior trauma right clavicle IMPRESSION: 1. Endotracheal tube adjacent to the chio. Recommend repositioning. 2. No dissection. 3. Mild paraseptal emphysema right apex. Mild paraseptal emphysema left lung. No visualized pneumothorax. Mild basilar airspace disease/atelectasis on the right. Lungs are otherwise well aerated. 4. Subtle nodular density adjacent to the right hemidiaphragm of approximately 4 mm. Follow-up. Fleischner Society guidelines for pulmonary nodule follow up Low risk patients < or = 4 mm: No follow-up needed. >4 - 6: Follow-up at 12 months. If no change, no further imaging needed. High risk patients < or = 4 mm: Follow-up at 12 months. If no change, no further imaging needed. >4-6: Initial follow-up CT at 6 -12 months and then at 18 - 24 months if no change. Note.-Newly detected indeterminate nodule in persons 35 years of age or older. Low risk patients: Minimal or absent history of smoking and of other known risk factors. High risk patients: History of smoking or of other known risk factors. PROCEDURE INFORMATION: Exam: CT Abdomen And Pelvis With Contrast Exam date and time: 11/14/2019 9:38 AM Age: 48 years old Clinical indication: Injury or trauma; Fall; Initial encounter; Generalized; Blunt trauma (contusions or hematomas); Injury details: PT fell down staits - unresponsive; Additional info: PT fell down stairs/unresponsive TECHNIQUE: Imaging protocol: Computed tomography of the abdomen and pelvis with intravenous contrast. Radiation optimization: All CT scans at this facility use at least one of these dose optimization techniques: automated exposure control; mA and/or kV adjustment per patient size (includes targeted exams where dose is matched to clinical indication); or iterative reconstruction. Contrast material: OMNI 350; Contrast volume: 100 ml; Contrast route: INTRAVENOUS (IV); COMPARISON: No relevant prior studies available. FINDINGS: Tubes, catheters and devices: Nasogastric tube in the region of the gastric antrum. Fluid-filled stomach. Liver: Mild fatty infiltration of the liver. Gallbladder and bile ducts: Normal. No calcified stones. No ductal dilation. Pancreas: Normal. No ductal dilation. Spleen: Normal. No splenomegaly. Adrenals: Normal. No mass. Kidneys and ureters: Normal. No hydronephrosis. Stomach and bowel: Suggestion of mild thickening of the large bowel likely related to lack of distension. Appendix: Appendix normal. Intraperitoneal space: no acute intra-abdominal process. No free fluid in the pelvis. No osseous injury. No evidence of visceral injury. Vasculature: Unremarkable. No abdominal aortic aneurysm. Lymph nodes: Numerous inguinal lymph nodes bilaterally. Nonspecific. Bladder: Coronado catheter is present within a nondistended bladder. Reproductive: Unremarkable as visualized. Bones/joints: Degenerative changes within the spine. Multilevel Schmorl's nodes. Soft tissues: See Intraperitoneal space finding. IMPRESSION: 1. No acute intra-abdominal process. No free fluid in the pelvis. No osseous injury. No evidence of visceral injury. 2. Nasogastric tube in the region of the gastric antrum. Fluid-filled stomach. 3. Appendix normal. Dictated and Authenticated by: Alhaji Reyes MD. Ordering:ЕКАТЕРИНА Hollingsworth MD
[2019-11-14] MEDS: PROPOFOL 1,000 MG/100 ML BTL 22.725 MG IVPB (11:36)
--- NOTE | 2019-11-14 14:11 | DI.VRAD_ITS ---
PROCEDURE INFORMATION: Exam: CT Thoracic Spine Without Contrast Exam date and time: 11/14/2019 1:42 PM Age: 48 years old Clinical indication: Other: PT fell down stiars, unresponsive, reconstructed spine images TECHNIQUE: Imaging protocol: Computed tomography images of the thoracic spine without contrast. Radiation optimization: All CT scans at this facility use at least one of these dose optimization techniques: automated exposure control; mA and/or kV adjustment per patient size (includes targeted exams where dose is matched to clinical indication); or iterative reconstruction. COMPARISON: No relevant prior studies available. FINDINGS: Tubes, catheters and devices: Endotracheal tube and nasogastric tube Vertebrae: The alignment is normal. No visualized fracture. No paravertebral soft tissue prominence. No subluxation-no perched or jumped facets. The facets are without acute process. Question mild depression of the anterior column of T1. No retropulsed fragment. Discs/Spinal canal/Neural foramina: Degenerative changes, mild, throughout much of the thoracic spine Diffuse degenerative disc disease. Soft tissues: See Vertebrae finding. IMPRESSION: 1. Diffuse degenerative disc disease. 2. Question mild depression of the anterior column of T1. No retropulsed fragment. 3. Paraseptal emphysema right apex PROCEDURE INFORMATION: Exam: CT Lumbar Spine Without Contrast Exam date and time: 11/14/2019 1:42 PM Age: 48 years old Clinical indication: Other: PT fell down stiars, unresponsive, reconstructed spine images TECHNIQUE: Imaging protocol: Computed tomography images of the lumbar spine without contrast. Radiation optimization: All CT scans at this facility use at least one of these dose optimization techniques: automated exposure control; mA and/or kV adjustment per patient size (includes targeted exams where dose is matched to clinical indication); or iterative reconstruction. COMPARISON: No relevant prior studies available. FINDINGS: Vertebrae: No spondylolisthesis No pars defect. No fracture. Moderate facet hypertrophic changes most pronounced L3-L4, L4-L5, L5-S1. Schmorl's nodes at multiple levels including the superior endplates of L3-L2 and L1. Degenerative disc disease most pronounced L3-L4 with large bridging anterior osteophytes. No paravertebral hematoma. Discs/Spinal canal/Neural foramina: Moderate degenerative disc disease diffusely reflected as decrease in disc space height and anterior endplate osteophytosis. Soft tissues: See Vertebrae finding. IMPRESSION: No clearly visualized fracture. Consider MRI if indicated. 1. Moderate diffuse degenerative disc disease. 2. Schmorl's nodes at multiple levels including the superior endplates of L3-L2 and L1. 3. Degenerative disc disease most pronounced L3-L4 with large discontinuous bridging anterior osteophytes. No paravertebral hematoma. Dictated and Authenticated by: Alhaji Reyes MD. Ordering:[id number] Hollingsworth MD
[2019-11-14 19:31] LABS: COVID-19 RT-PCR UVMMC Result Negative (Negative)
--- NOTE | 2019-11-15 09:22 | NUR.NOTE ---
Nursing Note: attempted to call pt at 0920 this am with no answer and voicemail not active. Will attempt to call back later today 11/15/2019.
--- NOTE | 2019-11-15 20:17 | NUR.NOTE ---
Nursing Note: Spoke with [facility] [place] ICU, Carmina RN notified of negative COVID result.
== END 2019-11-14 11:41 | disposition short-term general hospital (02) ==
PROVIDERS: Emergency Provider Emergency Medicine; PCP General Practice
DX: S09.90XA Unspecified injury of head, initial encounter (principal); S02.40FA Zygomatic fracture, left side, initial encounter for closed fracture; S02.40DA Maxillary fracture, left side, initial encounter for closed fracture; S02.32XA Fracture of orbital floor, left side, initial encounter for closed fracture; W10.8XXA Fall (on) (from) other stairs and steps, initial encounter; F10.120 Alcohol abuse with intoxication, uncomplicated; Y90.8 Blood alcohol level of 240 mg/100 ml or more
CPT/HCPCS: 31500; 36415; 36416; 36556; 51702; 71045; 74177; 80053; 80307; 82805; 82962; 93005; 96361; 96365; 96366; 96375; 99291; U0003; 70450; 71260; 72125; 80320; 81003; 81015; 83735; 84484; 85025; 85610; 85730; 93010; J2310; J3360; J3490

== ENCOUNTER → 2020-01-18 08:28 | Outpatient (BNVA) | payer MEDICARE, SELFPAY | PROVIDERS: PCP General Practice; Referring Provider General Practice; Visit Provider Surgery | DX: Z43.1 Encounter for attention to gastrostomy (principal); Z87.81 Personal history of (healed) traumatic fracture | CPT/HCPCS: 99202; 99213 ==

== ENCOUNTER 2020-04-10 01:35 | Outpatient (CLI) | payer MEDICARE, SELFPAY ==
--- NOTE | 2020-04-10 | DI.MRI_ITS ---
EXAM: MR CERVICAL SPINE WO CLINICAL HISTORY: F/U CONDYLAR FX,BILAT ARM WEAKNESS,FINGER NUMBNESS,? MYELOPATHY. TECHNIQUE: Multiplanar multisequence MRI was performed. COMPARISON: CR XR CERVICAL SP BERMUDEZ TRAUMA 2-3V from 04/10/2020 FINDINGS: MR examination cervical spine was performed according to the usual protocol. There is posterior fixa tion apparatus in place extending into the pedicles at C4-C5 and C6. There is a C5 anterior compress ion fracture which appears stable in comparison with plain films of April 10. There is mild ret rolisthesis of C3 on C4, estimated at 3 millimeters. No other significant fracture or deformity seen . There is no significant abnormality identified at the craniocervical junction and the visualized post erior fossa structures appear intact. At the C2-3 level, there is no evidence of disc herniation or deformity of the bony spinal canal or n eural foramina. At C3-4, there is prominence of the disc osteophyte complex posteriorly with possible mild central reyes perimposed disc herniation. There is slight retrolisthesis of C3 on C4. There is no impingement of the spinal cord, nor is there intra cord signal abnormality. Neural foramina are not well visualized due to metallic artifact. There is no central canal spinal stenosis. At C4-5, there is unremarkable appearance of the spinal canal as visualized, neural foramina appear f airly well maintained. Spinal cord is normal. At C5-6, there is no evidence of central canal spinal stenosis, neural foraminal stenosis, or disc he rniation. No significant findings at C6-7 or visualized portions of the upper thoracic spine. IMPRESSION: No evidence of cord impingement, compression, or intra cord signal abnormality in the region surveyed . Prominence of disc osteophyte complex and mild retrolisthesis with possible mild superimposed central disc herniation noted at C3-4. Apparently stable appearance of the cervical spine in comparison with prior radiographs obtained Nov. DATA REPOSITORY:
--- NOTE | 2020-04-10 14:50 | DI.RAD_ITS ---
EXAM: XR CERVICAL SP BERMUDEZ TRAUMA 2-3V CLINICAL HISTORY: F/U FX,S12.401A. TECHNIQUE: 2D digital imaging was performed. COMPARISON: No exams were available for comparison FINDINGS: Three views submitted for interpretation occluding frontal view as well as flexion extension lateral views. There has been removal of posterior osseous elements and posterior fusion rods are noted at C4, C5, a nd C6 levels, these secured by intra pedicular screws bilaterally at C4 and C6 levels as well as a si ngle left-sided intra pedicular screw at C5 level. Slight loss of height of C5 is noted. Some disc space narrowing at C5-6 and C4-5 noted. There is slight bulging of the posterior cortex of the C5 ve rtebral body. No listhesis is evident with flexion and extension. There is no hardware fracture or loosening evident. No prevertebral soft tissue swelling. No radiographic evidence of osteomyelitis. IMPRESSION: Satisfactory appearance. DATA REPOSITORY: RADIATION DOSE DELIVERED:
== END 2020-04-10 01:55 ==
PROVIDERS: PCP Nurse Practitioner Family; Visit Provider Neurological Surgery
DX: S12.490A Other displaced fracture of fifth cervical vertebra, initial encounter for closed fracture (principal); M25.78 Osteophyte, vertebrae
CPT/HCPCS: 72040; 72141

== ENCOUNTER 2020-04-12 04:15 | Outpatient (CLI) | payer MEDICARE, SELFPAY ==
[2020-04-12 16:17] LABS: VALPROIC ACID 90.5 ug/mL (50-100)
== END 2020-04-12 04:35 ==
PROVIDERS: Nurse Practitioner Psychiatric/Mental Health; PCP Nurse Practitioner Family; Visit Provider Nurse Practitioner Family
DX: F25.0 Schizoaffective disorder, bipolar type (principal); Z51.81 Encounter for therapeutic drug level monitoring
CPT/HCPCS: 36415; 80164

== ENCOUNTER 2021-01-23 02:07 | Outpatient (CLI) | payer MEDICARE, SELFPAY ==
[2021-01-23 12:45] LABS: Calculated LDL 95 mg/dL (<100); Cholesterol 163 mg/dL (<200); HDL Cholesterol 37 mg/dL (40-60); Triglyceride 158 mg/dL (<150)
== END 2021-01-23 02:08 | disposition home or self-care (01) ==
LOC: LBO 02:07
PROVIDERS: PCP Nurse Practitioner Family; Visit Provider Nurse Practitioner Family
DX: M79.10 Myalgia, unspecified site (principal); Z13.220 Encounter for screening for lipoid disorders; Z00.00 Encounter for general adult medical examination without abnormal findings
CPT/HCPCS: 36415; 80061

== ENCOUNTER 2021-02-19 02:10 | Outpatient (CLI) | payer MEDICARE, SELFPAY ==
[2021-02-19 13:13] LABS: Absolute Eosinophil Count 0.71 10^3/uL (0.0-0.7); Absolute Lymphocyte Count 3.77 10^3/uL (1.2-3.4); Absolute Monocyte Count 1.02 10^3/uL (0.1-0.8); Basophils % 1.2; Eosinophils % 6.3; HCT 45.9 % (40.0-50.0); HGB 15.6 g/dL (13.5-17.5); Immature Grans % 0.9; Lymphocytes % 33.4; MCH 30.8 pg (27.0-33.0); MCV 90.5 fL (80-95); MPV 10.5 fL (8.0-11.0); Neutrophils % 49.2; Nucleated RBC 0 %; Platelet Count 267 10^3/uL (130-400); RBC 5.07 10^6/uL (4.36-5.78); RDW 13.9 % (11.8-14.1); RDW-SD 46.9 fL
[2021-02-19 13:16] LABS: Absolute Basophil Count 0.14 10^3/uL (0.0-0.2); Absolute Neutrophil Count 5.56 10^3/uL (1.2-6.7)
[2021-02-19 13:44] LABS: ALT 42 U/L (16-63); AST 18 U/L (15-37); Albumin 3.5 g/dL (3.4-5.0); Alkaline Phosphatase 127 U/L (46-116); Anion Gap 5.4 mmol/L (3-11); BUN 10 mg/dL (7-18); Bilirubin, Total 0.3 mg/dL (0.2-1.0); CO2 31.6 mmol/L (21.0-32.0); CREATININE 0.9 mg/dL (0.70-1.30); Calcium 9.1 mg/dL (8.5-10.1); Chloride 106 mmol/L (98-107); Glucose 102 mg/dL (74-106); Potassium 3.8 mmol/L (3.5-5.1); Sodium 143 mmol/L (136-145); Total Protein 7.2 g/dL (6.4-8.2)
[2021-02-19 13:55] LABS: VALPROIC ACID 68.8 ug/mL
== END 2021-02-19 02:11 | disposition home or self-care (01) ==
LOC: LBO 02:11
PROVIDERS: PCP Nurse Practitioner Family; Visit Provider Nurse Practitioner Psychiatric/Mental Health
DX: F25.0 Schizoaffective disorder, bipolar type (principal)
CPT/HCPCS: 36415; 80053; 80164; 85025

== ENCOUNTER 2022-06-27 11:58 | Outpatient (CLI) | payer MEDICARE, SELFPAY ==
--- OUTSIDE RECORDS SUMMARY | 2022-06-27 12:00 | XMS_ITS | Continuity of Care Document ---
Author Name Unknown Organization [facility] Address Unknown Care Team Providers Care Financial Aid Counselor Name Role Phone Kobi-Regla Covarrubias Primary Care Physician Encounter [facility] Date(s): 12/21/19 - 12/30/19 [facility] [address] [place] [address]- Encounter Diagnosis Traumatic subarachnoid hemorrhage with loss of consciousness of unspecified duration, subsequent encounter(Final) - Traumatic subdural hemorrhage with loss of consciousness of unspecified duration, subsequent encounter(Final) - Traumatic hemorrhage of cerebrum, unspecified, with loss of consciousness of unspecified duration, subsequent encounter(Final) - Facial fracture due to fall(Discharge Diagnosis) - 12/21/19 C1 cervical fracture(Discharge Diagnosis) - 12/21/19 Diffuse axonal injury(Discharge Diagnosis) - 12/21/19 Facial nerve palsy(Discharge Diagnosis) - 12/21/19 Traumatic brain injury with prolonged loss of consciousness (more than 24 hours) without return to pre-existing conscious level(Discharge Diagnosis) - 12/21/19 Fall (on) (from) unspecified stairs and steps, subsequent encounter(Final) - Other specified intracranial injury with loss of consciousness of unspecified duration, subsequent encounter(Final) - Other symptoms and signs involving cognitive functions and awareness(Final) - Unspecified displaced fracture of first cervical vertebra, subsequent encounter for fracture with routine healing(Final) - Maxillary fracture, left side, subsequent encounter for fracture with routine healing(Final) - Injury of brachial plexus, subsequent encounter(Final) - Fracture of orbit, unspecified, subsequent encounter for fracture with routine healing(Final) - Other fracture of base of skull, subsequent encounter for fracture with routine healing(Final) - Zygomatic fracture, left side, subsequent encounter for fracture with routine healing(Final) - Pena's palsy(Final) - Unspecified open wound of right middle finger with damage to nail, subsequent encounter(Final) - Unspecified open wound of right ring finger with damage to nail, subsequent encounter(Final) - Disorder of thyroid, unspecified(Final) - Gastrostomy status(Final) - Wheezing(Final) - Tobacco use(Final) - Cannabis use, unspecified, uncomplicated(Final) - Other stimulant use, unspecified, uncomplicated(Final) - Other problems related to lifestyle(Final) - Other specified respiratory disorders(Final) - Attention-deficit hyperactivity disorder, unspecified type(Final) - Anxiety disorder, unspecified(Final) - Full incontinence of feces(Final) - Other sites of candidiasis(Final) - Discharge Disposition: Home Care with Home Health Attending Physician: Natalie Aguilar MD Admitting Physician: Natalie Aguilar MD Referring Physician: Jin Gaffney M.D. Allergies, Adverse Reactions, Alerts No Known Allergies Assessment and Plan Extracted from: Title:Rehab discharge summary Author:Natalie Aguilar MD Date:12/30/19 History of Present Illness 48 yo man with a h/o ADHD, anxiety, smoking and a prior vertebral fracture admitted to [facility] on 11/14/19 after a fall down the stairs, leading to significant time on the ground. AT OSH his GCS was 3T, he was subsequently intubated and transfered to [facility]. His injuries were the following: Severe TBI with traumatic SAH, IPH, Left sided SDH, RHIANNA C1 fracture multiple facial fractures- left maxilla, left orbit, left sphenoid, left zygomatic arch Right hand finger nail avulsions Left brachial plexus injury LOLITA screen at Positive for cannabinoids, amphetamine, etoh He had a prolonged ICU and trauma course at [facility]. He had a PEG placed on in late November and he has remeianed on tube feeding due to ongoing aspiration. Right sided facial droop diagnosed on 12/14 and neuro consult obtained. 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 He had intermittent hypoxia responding to nebs. he had 2 courses of antibx for HAP (MSSA and h. flu), hypernatremia, difficulty managing secretions, , bowel incontinence and was recently started on nystatin for oral thrush. He has ongoing cognitive deficits, incerased work of brething and recently noted leukocytosis with a negative CXR (12/16) Of note-- he had an enhancing mass on his thyroid that will require follow up and imaging after recovery from these insults. On arrival to [facility] he is alert, oriented-- denies any current pain, knows he is at [facility] and that Velvet is president. He is eager to return to [facility] to Health Status Allergies: Allergic Reactions (All) No Known Allergies, Allergies (1) Active Reaction No Known Allergies None Documented Current medications: Home Medications (14) Active acetaminophen 325 mg oral tablet 650 mg = 2 tab(s), PRN, Oral, q4hr Colace 100 mg oral capsule 100 mg = 1 cap(s), PRN, Oral, BID Depakote 500 mg oral delayed release tablet See Instructions melatonin 3 mg oral tablet 6 mg = 2 tab(s), PRN, Oral, HS Metamucil 3.4 gm = 1 packet(s), Oral, Daily mirtazapine 30 mg oral tablet 30 mg = 1 tab(s), Oral, Once a day (at bedtime) nicotine 21 mg-14 mg-7 mg transdermal film, extended release , Transdermal, Daily ocular lubricant , PRN, Eye-Right, q4hr senna 8.6 mg oral tablet 17.2 mg = 2 tab(s), PRN, Oral, HS SEROquel 100 mg oral tablet 100 mg = 1 tab(s), Oral, HS Therapeutic Multiple Vitamins with Minerals oral tablet , Peg Tube, Daily traZODone 50 mg oral tablet 50 mg = 1 tab(s), Oral, HS valproic acid 1,000 mg = 20 mL, Peg Tube, HS valproic acid 500 mg = 10 mL, Peg Tube, Daily Problem list (past medical history): All Problems Bipolar 1 disorder / [id number] / Confirmed ADHD / [id number] / Confirmed Anxiety / [id number] / Confirmed, Active Problems (3) ADHD Anxiety Bipolar 1 disorder Physical Examination VS/Measurements Vital Signs (last 24 hrs) Last Charted Temp Axillary 36.6 DegC (DEC 28 07:00) Heart Rate Peripheral 82 bpm (DEC 28 07:53) Resp Rate 18 br/min (DEC 27:00) SBP 105 mmHg (DEC 28 07:48) DBP 71 mmHg (DEC 28 07:48) SpO2 92 % (DEC 28 07:53) Functional Status 12/30/19 History of Fall in Last 3 Months Pelaez Y es Mobility Moses Slightly limited 12/30/19 Dressing ADL Index Requires assistance (1) Toileting ADL Index Requires assistance (1) Transferring Bed or Chair ADL Index Inde pendent (2) Continence ADL Index Requires assistance (1) Ambulatory Devices None 12/25/19 ADLs Minimal assistance 12/25/19 History of Falls in Last 3 Months Chaidez Yes 12/21/19 Recent Travel History No recent travel Family Member Travel History No recent t jay jay COVID-19 Screening None Medications acetaminophen 325 mg oral tablet 650 mg = 2 tab(s), Oral, q4hr, PRN PRN Pain, 0 Refill(s) Start Date: 12/29/19 Status: Ordered Colace 100 mg oral capsule 100 mg = 1 cap(s), Oral, BID, PRN PRN Constipation, 0 Refill(s) Start Date: 12/29/19 Status: Ordered melatonin 3 mg oral tablet 6 mg = 2 tab(s), Oral, HS, PRN PRN Insomnia, 0 Refill(s) Start Date: 12/29/19 Status: Ordered Metamucil 3.4 gm 1 packet(s), Oral, Daily, 0 Refill(s) Start Date: 12/29/19 Status: Ordered mirtazapine 30 mg oral tablet 30 mg = 1 tab(s), Oral, Once a day (at bedtime), # 30 tab(s), 0 Refill(s) Start Date: 12/21/19 Status: Ordered nicotine 21 mg-14 mg-7 mg transdermal film, extended release Transdermal, Daily, 0 Refill(s) Start Date: 12/29/19 Status: Ordered ocular lubricant Eye-Right, q4hr, PRN PRN Dry eyes, 0 Refill(s) Start Date: 12/29/19 Status: Ordered senna 8.6 mg oral tablet 17.2 mg = 2 tab(s), Oral, HS, PRN PRN Constipation, 0 Refill(s) Start Date: 12/29/19 Status: Ordered SEROquel 100 mg oral tablet 100 mg = 1 tab(s), Oral, HS, 0 Refill(s) Start Date: 12/29/19 Status: Ordered Therapeutic Multiple Vitamins with Minerals oral tablet Peg Tube, Daily, 0 Refill(s) Start Date: 12/29/19 Status: Ordered traZODone 50 mg oral tablet 50 mg = 1 tab(s), Oral, HS, # 30 tab(s), 0 Refill(s) Start Date: 12/29/19 Status: Ordered valproic acid 250 mg/5 mL oral syrup See Instructions, 10 mL Oral qam and 20 mL oral qhs, # 1,350 mL, 0 Refill(s) Start Date: 12/30/19 Status: Ordered Mental Status 12/30/19 Sensory Perception Moses No impairment Level of Consciousness Alert Problem List Condition Effective Dates Status Health Status Inform ant Anxiety(Confirmed) Active ADHD(Confirmed) Active Bipolar 1 disorder(Confirmed) Active Results Laboratory List Name Date Glucose POC1 12/23/19 .Hemogram DH (CBC DH) 12/22/19 CMP DH 12/22/19 Most recent to oldest [Reference Range]: 1 Albumin Lvl DH [3.2-5.2 gm/dL] 3.9 gm/dL (12/22/19 4:45 AM) Alk Phos DH [40-120 unit/L] 120 unit/L (12/22/19 4:45 AM) ALT DH [0-55 unit/L] 40 unit/L (12/22/19 4:45 AM) Anion Gap DH [5-15 mmol/L] 14 mmol/L (12/22/19 4:45 AM) AST DH [0-39 unit/L] 25 unit/L (12/22/19 4:45 AM) Bili Total DH [0.2-1.3 mg/dL] 0.3 mg/dL (12/22/19 4:45 AM) Chloride Lvl DH [98-107 mmol/L] 95 mmol/ L *LOW* (12/22/19 4:45 AM) CO2 DH [22-31 mmol/L] 29 mmol/L (12/22/19 4:45 AM) Est GFR DH [>=60] 115 1 (12/22/19 4:45 AM) Glucose Lvl DH [65-99 mg/dL] 92 mg/dL (12/22/19 4:45 AM) Potassium Lvl DH [3.5-5.0 mmol/L] 4.1 mm ol/L (12/22/19 4:45 AM) Sodium Lvl DH [135-145 mmol/L] 138 mmol/ L (12/22/19 4:45 AM) Total Protein DH [6.1-8.0 gm/dL] 7.0 gm/ dL (12/22/19 4:45 AM) BUN DH [10-20 mg/dL] 25 mg/dL *HI* (12/22/19 4:45 AM) Calcium Lvl DH [8.5-10.5 mg/dL] 9.9 mg/d L (12/22/19 4:45 AM) Creatinine [0.80-1.50 mg/dL] .68 mg/dL *LOW* (12/22/19 4:45 AM) Creatinine 0.75 mg/dL (12/21/19 4:04 AM) GFR - DH [>=60] 133 2 (12/22/19 4:45 AM) Glucose POC [<=600 mg/dL] 153 mg/dL (12/23/19 7:13 AM) Hct DH [40.5-48.5 %] 41.7 % (12/22/19 4:45 AM) Hgb DH [13.7-16.5 gm/dL] 14.0 gm/dL (12/22/19 4:45 AM) MCHC DH [32.0-35.7 pg] 33.6 pg (12/22/19 4:45 AM) MCH DH [27.5-32.1 pg] 32.0 pg (12/22/19 4:45 AM) MCV DH [82.9-93.1 fL] 95.4 fL *HI* (12/22/19 4:45 AM) MPV DH [7.6-12.9 fL] 10.4 fL (12/22/19 4:45 AM) Platelet DH [145-357 x10(3)/mcL] 209 x10 (3)/mcL (12/22/19 4:45 AM) RBC DH [4.58-5.54 x10(6)/mcL] 4.37 x10(6 )/mcL *LOW* (12/22/19 4:45 AM) RDWCV DH [11.4-13.8 x10(6)/mcL] 14.4 x10 (6)/mcL *HI* (8/12/20 4:45 AM) RDWSD DH [36.0-45.0 fL] 49.5 fL *HI* (12/22/19 4:45 AM) WBC DH [4.0-9.5 x10(3)/mcL] 12.6 x10(3)/ mcL *HI* (12/22/19 4:45 AM) Blood Glucose, Capillary POC [74-118 mg/ dL] 153 mg/dL *HI* (12/23/19 7:00 AM) 1Result Comment: The eGFR was calculated using the CKD-EPI equation. As with all creatinine based estimates of kidney function, eGFR values calculated with the CKD-EPI equation are not accurate in patients with acute kidney failure, extremes of body mass or the acutely ill. [email or web address]/[email or web address] 2Result Comment: The eGFR was calculated using the CKD-EPI equation. As with all creatinine based estimates of kidney function, eGFR values calculated with the CKD-EPI equation are not accurate in patients with acute kidney failure, extremes of body mass or the acutely ill. http://Liquiverse/DHnkf Radiology Reports true* Exam Date Time Procedure Performing Provider Status 12/28/19 4:36 PM XR BASW Modified Eli Brown; Modified Notes: (XR BASW Modified) Reason For Exam: aspiration;aspiration XR BASW MODIFIED EXAMINATION: XR BASW MODIFIED CLINICAL HISTORY: aspiration TECHNIQUE: The examination was performed in conjunction with speech pathology. Varying consistencies of barium were administered under lateral fluoroscopic observation. Consistencies include thin liquid, nectar/V8, cracker and turkey. Fluoro time: 4.2 minutes COMPARISON: 12/10/2019 barium swallow FINDINGS: The oral phase is notable for some delay and posterior thrusting of the bolus via the tongue. There is normal elevation of the larynx and normal epiglottic inversion with swallowing. With thin liquids there is several episodes of laryngeal penetration and one episode of aspiration which prompted a cough. With nectar thick consistency, there were occasional episodes of some laryngeal penetration with no aspiration. There is a small amount of vallecular pooling which clears on the second or third swallow. With solid consistencies there was a greater degree of vallecular pooling. Some of this clears with swallowing of liquid. IMPRESSION: There was one episode of aspiration with thin liquid which prompts a spontaneous cough. There is some laryngeal penetration with thin and nectar thick liquid (more so with thin). Vallecular residual occurs primarily with the solid consistencies as noted above. Thank you for letting us participate in the care of this patient. For questions regarding this report, please contact the number below. Electronically signed by: Salinas Mcginnis [facility] ([phone]), at 2019 5:52 PM Final Dictated: 2019 5:57 pm Salinas Mcginnis MD Signed (Electronic Signature): 2019 5:52 pm Signed by: Salinas Mcginnis MD Transcribed by: U Vital Signs Most recent to oldest [Reference Range]: 1 2 3 4 Temperature Axillary [35.2-36.7 DegC] 36.7 DegC (12/29/19 8:00 PM) 36.6 DegC (12/29/19 7:00 AM) Temperature Oral [35.8-37.3 DegC] 36.0 DegC (12/30/19 9:10 AM) 36.3 DegC (12/28/19 8:44 AM) 36.6 DegC (12/27/19 9:00 PM) Temperature Oral (DegF) 96.8 DegF (12/30/19 9:10 AM) 97.88 DegF (12/25/19 8:27 AM) 98.42 DegF (12/24/19 7:40 AM) Temperature Temporal [36.3-37.8 DegC] 36.6 DegC (12/28/19 8:00 PM) Apical Heart Rate [60-100 bpm] 80 bpm (12/23/19 6:15 PM) 92 bpm (12/23/19 12:00 PM) Peripheral Pulse Rate [60-100 bpm] 87 bpm (12/30/19 9:10 AM) 75 bpm (12/29/19 8:00 PM) 82 bpm (12/29/19 7:53 AM) Respiratory Rate [14-20 br/min] 18 br/min (12/30/19 9:10 AM) 18 br/min (12/29/19 8:00 PM) 18 br/min (12/28/19 8:00 PM) Blood Pressure [90-140/60-90 mmHg] 121/83mmHg (12/29/19 8:00 PM) 105/71mmHg (12/29/19 7:48 AM) Systolic Blood Pressure [90-140 mmHg] 112 mmHg (12/28/19 8:00 PM) Diastolic Blood Pressure [60-90 mmHg] 112 mmHg *HI* (12/30/19 9:10 AM) Mean Arterial Pressure, Cuff 82 mmHg (12/29/19 7:48 AM) 92 mmHg (12/28/19 4:20 PM) 80 mmHg (12/28/19 8:45 AM) Mean Arterial Pressure Cuff-Monitor 77 mmHg (12/30/19 9:10 AM) BP Site Left arm (12/30/19 9:10 AM) Left arm (12/29/19 8:00 PM) Left arm (12/28/19 8:00 PM) Patient Position BP Sitting (12/28/19 4:20 PM) Supine (12/28/19 8:45 AM) SpO2 [92-100 %] 92 % (12/30/19 9:10 AM) 95 % (12/29/19 8:00 PM) 92 % (12/29/19 7:53 AM) Pulse Rate after activity 78 bpm (12/27/19 11:07 AM) Systolic after activity 115 mmHg (12/27/19 11:07 AM) Diastolic after activity 75 mmHg (12/27/19 11:07 AM) O2 Saturation after activity 96 % (12/27/19 11:07 AM) Height 170.2 cm (12/30/19 8:56 AM) 170.2 cm (12/30/19 8:56 AM) 170.2 cm (12/24/19 7:14 AM) 170.2 cm (12/24/19 7:14 AM) Height/Length Measured (inches) 67 in (12/21/19 3:26 PM) Height/Length Dosing 170.2 cm (12/21/19 3:26 PM) 170.2 cm (12/21/19 10:34 AM) Weight 71.7 kg (12/30/19 8:56 AM) 71.7 kg (12/30/19 8:56 AM) 71.7 kg (12/28/19 1:12 PM) Weight Measured (lbs) 156.2 lb (12/21/19 3:26 PM) Weight Estimated 71.7 kg (12/28/19 1:12 PM) Weight Dosing 71.7 kg (12/28/19 1:12 PM) 65.7 kg (12/23/19 6:34 AM) 17.20 kg (12/21/19 3:26 PM) Usual Weight 77 kg (12/30/19 8:56 AM) 77 kg (12/30/19 8:56 AM) 77 kg (12/24/19 7:14 AM) 77 kg (12/24/19 7:14 AM) Star Body Weight 66.1 kg (12/30/19 8:56 AM) 66.1 kg (12/24/19 7:14 AM) 66.1 kg (12/22/19 7:15 AM) Percent Star Weight 108 % (12/30/19 8:56 AM) 107 % (12/22/19 7:15 AM) BSA Measured 1.84 m2 (12/30/19 8:56 AM) Body Mass Index Measured 24.75 kg/m2 (12/30/19 8:56 AM) 24.51 kg/m2 (12/22/19 7:15 AM) Body Mass Index 24.75 kg/m2 (12/30/19 8:56 AM) Social History Social History Type Response Smoking Status Former smoker, quit more than 30 days ago; Smokeless tobacco use: Former smokeless tobacco user, quit more than 30 days ago; Ready to change: Yes; Tobacco use per day: 1ppd; Number of years: 32; Started at age: 13.0; Stopped at age: 47; 1 entered on: 12/21/19 Sex 1wants to stay stopped Hospital Discharge Instructions Patient Education 12/30/2019 10:41:38 How to Use a Hard Cervical Collar How to Use a Hard Cervical Collar A hard cervical collar limits the movement of the top part of your spine (cervical spine). The collar holds your head and neck in a straight position. A cervical collar may be used to treat: ??? A fracture in the neck. ??? Damage to the ligaments. Ligaments are tissues that connect bones. ??? Injury to the spinal cord. There are several types of hard cervical collars. Follow the command and control's instructions for use. These are general guidelines. What are the risks? Wearing a cervical collar is safe. However, problems may occur, including: ??? Skin breakdown. ??? Sores that form due to rubbing or pressure on the skin (pressure ulcers). ??? Pain. ??? Difficulty breathing. ??? Worsening of your condition if the collar is not placed correctly. ??? Increased risk of inhaling food or liquid into your lungs (aspiration). Supplies needed: ??? Extra cervical collar and replacement pads. ??? Ice. ??? Plastic bag. ??? Towel. ??? A watertight covering to put over the collar during bathing, if needed. How to use a cervical collar ??? Wear the cervical collar as told by your health care provider. Do not remove it unless told to do so by your health care provider. ??? You may be directed to remove it only when you check your skin and change the pads. While the collar is off: ??? Ask another person to assist you if needed. ??? Keep your head and neck straight. Do not bend your neck or turn your head. ??? Check your skin daily for red areas. Ask for help or use a mirror to check areas you cannot see. ??? After checking your skin, wear the extra cervical collar while cleaning and changing the pads of the other collar. ??? Change the pads daily or more often if they become wet or dirty. Keep a clean set of replacement pads. ??? Do not let hard plastic edges touch your skin. Cover them with a soft pad. ??? If your cervical collar is not waterproof: ??? Do not let it get wet. ??? Cover it with a watertight covering when you take a bath or a shower. Follow these instructions at home: ??? Put ice on the injured area to manage pain, stiffness, and swelling. ??? Do not remove your cervical collar unless told to do so by your health care provider. ??? Put ice in a plastic bag. ??? Place a towel between your skin and the bag or between your cervical collar and the bag. ??? Leave the ice on for 20 minutes, 2???3 times a day for the first 2 days after your injury. ??? Do not drive any vehicle until your health care provider approves. ??? Keep all follow-up visits as told by your health care provider. This is important. Any delay ingetting the care that you need can prevent proper healing of your injury. Contact a health care provider if you have: ??? Red areas of skin under your cervical collar. ??? Pain that is not controlled with your medicines. Get help right away if you have: ??? Numbness or weakness in your arms or legs. ??? Difficulty breathing. These symptoms may represent a serious problem that is an emergency. Do not wait to see if the symptoms will go away. Get medical help right away. Call your local emergency services (911 in the [place] Do not drive yourself to the hospital. Summary ??? A cervical collar is a device that supports the chin and the back of the head. It restricts movement of the neck to prevent more damage after a severe injury. ??? A cervical collar may be used to treat a fracture in the neck, damage to tissues that hold bones together (ligaments), or injury to the spinal cord. ??? Wear the cervical collar as told by your health care provider. Ask if you may remove the collarto shower, bathe, or eat, or to put ice on your neck. This information is not intended to replace advice given to you by your health care provider. Make sure you discuss any questions you have with your health care provider. Document Released: 01/18/2005 Document Revised: 11/03/2018 Document Reviewed: 03/20/2018 [employer] Patient Education ?? 2019 [place]. 12/30/2019 08:53:18 Hospitalist Services Upon Discharge (KARL MARSHALL) (Custom) Services Upon Discharge Patient is being discharged home with these services in place: HOME SERVICES: Home Services Discharge - Arrangements and orders for follow-up care Service Provider: [facility] Contact Service(s) to be Provided: Registered Nurse, Physical Therapy, Occupational Therapy, Speech Therapy,SW Frequency: 2-3 times per week Additional Comments: If unable to reach Chencho or Maggie, please reach out to his brother Otis, who can contact them. Otis can be reached at [phone]. Date of the face to face encounter: 12/29/19 This visit was related to TBI s/p fall for which the patient needs skilled home health services. Occupational Therapy- 2x weekly for independence with ADLs Physical Therapy- 2x weekly for strengthening, endurance, balance and functional independence Nursing- CV and pulmonary assessment, diabetic teaching and monitoring, daily weights, daily dressing [facility] Aide- 2x weekly for help with personal hybeine due to precautions and cervical collar. Encourage safety while promoting ADL independence Speech Therapy-?? 2x weekly for Social Work - Assist with [facility] Medicaid application process. Clinical was faxed on 12/29/2019 to Tahira Roberts at [email or web address], ( ). The patient is homebound and requires considerable and taxing effort to leave their residence secondary to requiring contact guard assist for ambulation to prevent LOB, thereby requiring the assistance for absences from the home. To all home service providers, please contact the patient???s Primary Care Provider - Regla Avila NP - with all follow up regarding your services. Reviewed and Electronically Signed By: Natalie Aguilar MD Date: 12/29/19 2019 11:46:04 Living With Traumatic Brain Injury Living With Traumatic Brain Injury Traumatic brain injury (TBI) is an injury to the brain that may be mild, moderate, or severe. Symptoms of any type of TBI can be long lasting (chronic). Depending on the area of the brain that is affected, a TBI can interfere with vision, memory, concentration, speech, balance, sense of touch, and sleep. TBI can also cause chronic symptoms like headache or dizziness. How to cope with lifestyle changes After a TBI, you may need to make changes to your lifestyle in order to recover as well as possible. How quickly and how fully you recover will depend on the severity of your injury. Your recovery plan may involve: ??? Working with specialists to develop a rehabilitation plan to help you return to your regular activities. Your health care team may include: ??? Physical or occupational therapists. ??? Speech and language pathologists. ??? Mental health counselors. ??? Physicians like your primary care physician or neurologist. ??? Taking time off work or school, depending on your injury. ??? Avoiding situations where there is a risk for another head injury, such as football, hockey, soccer, basketball, martial arts, downhill snow sports, and horseback riding. Do not do these activities until your health care provider approves. ??? Resting. Rest helps the brain to heal. Make sure you: ??? Get plenty of sleep at night. Avoid staying up late at night. ??? Keep the same bedtime hours on weekends and weekdays. ??? Rest during the day. Take daytime naps or rest breaks when you feel tired. ??? Avoiding extra stress on your eyes. You may need to set time limits when working on the computer, watching TV, and reading. ??? Finding ways to manage stress. This may include: ??? Avoiding activities that cause stress. ??? Deep breathing, yoga, or meditation. ??? Listening to music or spending time outdoors. ??? Making lists, setting reminders, or using a day city planner to help your memory. ??? Allowing yourself plenty of time to complete everyday tasks, such as grocery shopping, paying bills, and doing laundry. ??? Avoiding driving. Your ability to drive safely may be affected by your injury. ??? Rely on family, friends, or a transportation service to help you get around and to appointments. ??? Have a professional evaluation to check your driving ability. ??? Access support services to help you return to driving. These may include training and adaptive equipment. Follow these instructions at home: ??? Take lcjl-amu-sijfjcs and prescription medicines only as told by your health care provider. Do not take aspirin or other anti-inflammatory medicines such as ibuprofen or naproxen unless approved by your health care provider. ??? Avoid large amounts of caffeine. Your body may be more sensitive to it after your injury. ??? Do not use any products that contain nicotine or tobacco, such as cigarettes, e-cigarettes, nicotine gum, and patches. If you need help quitting, ask your health care provider. ??? Do not use drugs. ??? Limit alcohol intake to no more than 1 drink per day for non women and 2 drinks per dayfor men. One drink equals 12 ounces of beer, 5 ounces of wine, or 1?? ounces of hard liquor. ??? Do not drive until cleared by your health care provider. ??? Keep all follow-up visits as told by your health care provider. This is important. Where to find support ??? Talk with your employer, co-workers, teachers, or school counselor about your injury. Work together to develop a plan for completing tasks while you recover. ??? Talk to others living with a TBI. Join a support group with other people who have experienced aTBI. ??? Let your friends and family members know what they can do to help. This might include helping at home or transportation to appointments. ??? If you are unable to continue working after your injury, talk to a protective services social worker about options to help you meet your financial needs. ??? Seek out additional resources if you are a serviceman or family member, such as: ??? [facility]: dvbic.dcoe.mil ??? Department of Veterans Affairs and Veterans Crisis Line: Questions to ask your health care provider: ??? How serious is my injury? What is my rehabilitation plan? What is my expected recovery? When can I return to work or school? When can I return to regular activities, including driving? Contact a health care provider if: ??? You have new or worsening: ??? Dizziness. ??? Headache. ??? Anxiety or depression. ??? Irritability. ??? Confusion. ??? Jerky movements that you cannot control (seizures). ??? Extreme sensitivity to light or sound. ??? Nausea or vomiting. Summary ??? Traumatic brain injury (TBI) is an injury to your brain that can interfere with vision, memory,concentration, speech, balance, sense of touch, and sleep. TBI can also cause chronic symptoms likeheadache or dizziness. ??? After a TBI you may need to make several changes to your lifestyle in order to recover as well as possible. How quickly and how fully you recover will depend on the severity of your injury. ??? Talk to your family, friends, employer, co-workers, teachers, or school counselor about your injury. Work together to develop a plan for completing tasks while you recover. This information is not intended to replace advice given to you by your health care provider. Make sure you discuss any questions you have with your health care provider. Document Released: 04/24/2017 Document Revised: 04/24/2017 Document Reviewed: 04/24/2017 [employer] Interactive Patient Education ?? 2020 [employer] Follow Up Care 12/21/2019 10:05:44 With:[facility] Address:Unknown When: Unknown Comments:PT/OT/Nursing/ADMISSIONS CONSULTANT/SW With: Alyssa Address:Unknown When: Unknown Comments:per Trauma/General Surgery (Appt for Peg removal) - call office after you have not used Peg tubefor ~ 1-2 weeksPh: [phone] With:[facility] Address:Unknown When: Unknown Comments:[facility] office will call you if Appt is needed - ( you have follow-up with Neurosurgery re.Spine fx) With:Regla Avila Address: [facility] When:01/07/2020 14:45:00 Comments:follow-up/establish care with your New PCP With:[facility] Address: [place], [place] When:01/24/2020 10:10:00 Comments:[facility] 3C EMG Rm 1, @ 10:10am With:[facility] Address: [place], [place] When:01/28/2020 09:00:00 Comments:[facility] 3T @ 9:00am, CT Scan 3Z @ 9:45am,NeuroSurg 3C @ 10:45am
[2022-06-27 12:14] LABS: Abs Immature Grans 0.06 10^3/uL (0.0-0.06); Absolute Basophil Count 0.11 10^3/uL (0.0-0.2); Absolute Eosinophil Count 0.88 10^3/uL (0.0-0.7); Absolute Lymphocyte Count 4.05 10^3/uL (1.2-3.4); Absolute Monocyte Count 1.01 10^3/uL (0.1-0.8); Basophils % 0.9; Eosinophils % 6.9; HCT 48.7 % (40.0-50.0); HGB 16.2 g/dL (13.5-17.5); Immature Grans % 0.5; Lymphocytes % 31.7; MCH 30.7 pg (27.0-33.0); MCHC 33.3 % (32.0-36.0); MCV 92 fL (80-95); MPV 10.1 fL (8.0-11.0); Monocytes % 7.9; Neutrophils % 52.1; Platelet Count 318 10^3/uL (130-400); RBC 5.28 10^6/uL (4.36-5.78); RDW 14.1 % (11.8-14.1); RDW-SD 47.8 fL; WBC 12.77 10^3/uL (4.4-10.8)
[2022-06-27 12:15] LABS: Absolute Neutrophil Count 6.65 10^3/uL (1.2-6.7)
[2022-06-27 12:23] LABS: Hemoglobin A1C 5.1 % (<5.7)
[2022-06-27 13:05] LABS: ALT 45 U/L (16-63); AST 24 U/L (15-37); Albumin 3.6 g/dL (3.4-5.0); Alkaline Phosphatase 140 U/L (46-116); Anion Gap 6.2 mmol/L (3-11); BUN 18 mg/dL (7-18); Bilirubin, Total 0.3 mg/dL (0.2-1.0); CO2 30.8 mmol/L (21.0-32.0); Calcium 9.6 mg/dL (8.5-10.1); Calculated LDL 102 mg/dL (<100); Chloride 106 mmol/L (98-107); Cholesterol 161 mg/dL (<200); Estimated GFR 92.26 (mL/min/1.73m2); Glucose 109 mg/dL (74-106); HDL Cholesterol 47 mg/dL (40-60); Potassium 3.9 mmol/L (3.5-5.1); Sodium 143 mmol/L (136-145); TSH 1.98 uIU/mL (0.36-3.74); Total Protein 7.4 g/dL (6.4-8.2); Triglyceride 62 mg/dL (<150)
[2022-06-27 13:06] LABS: VALPROIC ACID 76.6 ug/mL
[2022-06-27 13:18] LABS: Bilirubin, Direct 0.1 mg/dL (0.0-0.2)
[2022-07-01 11:22] LABS: Alcohol Negative mg/dL (Cutoff: 10); Amphetamines Presumptive Positive ng/mL; Barbiturates Negative; Benzodiazepines Negative; Cocaine Negative; Opiates Negative; Phencyclidine Negative ng/mL (Cutoff: 25); Tetrahydrocannabinol Presumptive Positive ng/mL (Cutoff: 50)
[2022-07-03 09:20] LABS: Amphetamine 143 ng/mL (Cutoff: 25); Amphetamines Interpretation Positive.; MDA (Ecstasy Metabolite) Negative ng/mL (Cutoff: 25); MDMA (Ecstasy) Negative ng/mL (Cutoff: 25); Methamphetamine 432 ng/mL (Cutoff: 25); Phentermine Negative ng/mL (Cutoff: 25); Pseudoephedrine/Ephedrine Negative ng/mL (Cutoff: 25)
[2022-07-04 10:07] LABS: Carboxy-THC Interpretation Positive; Delta-9 CarboxyThc by LC-MS/MS 43 ng/mL (Cutoff:<5.0)
== END 2022-06-27 11:59 | disposition home or self-care (01) ==
LOC: LBO 11:58
PROVIDERS: PCP Nurse Practitioner Family; Visit Provider Nurse Practitioner Family
DX: Z79.899 Other long term (current) drug therapy (principal)
CPT/HCPCS: 36415; 80053; 80061; 80076; 80307; 80324; 80349; 80164; 83036; 84443; 85025

== ENCOUNTER → 2023-11-27 08:22 | Outpatient (BNVA) | payer MEDICARE, SELFPAY | PROVIDERS: PCP Nurse Practitioner Family; Referring Provider Nurse Practitioner Family; Visit Provider Physical Therapy Assistant | DX: Z12.11 Encounter for screening for malignant neoplasm of colon (principal); Z80.0 Family history of malignant neoplasm of digestive organs ==

== ENCOUNTER 2024-01-02 09:00 | Day surgery (SDC) | payer OTHER, SELFPAY ==
--- NOTE | 2024-01-01 23:08 | PDOC.DSDIS_ITS ---
Date of service: 01/02/24 Time of Service: 11:05 Discharge Plan Disposition Patient Disposition: Home Condition: Good Discharge Details Reason For Visit: colon screening Attending Provider: Hazel Fermin Primary Care Provider: Regla Avila Home Meds and New Rx's Prescriptions: No Action quetiapine 100 mg tablet 100 mg PO QHS acetaminophen 325 mg capsule 650 mg PO Q4H PRN valproic acid 250 mg capsule 500 mg PO DAILY Rx Instructions: Take 500mg in the morning. Take 1000mg in the evening. bupropion HCl 150 mg tablet extended release 24 hr 300 mg PO QAM lurasidone [Latuda] 80 mg tablet 80 mg PO DAILY Rx Instructions: must administer with food (at least 350 calories) cyclobenzaprine 10 mg tablet 10 mg PO TID PRN Patient Comments: pt. states he has not taken for awhile mirtazapine 45 mg tablet 15 mg PO QHS divalproex [Depakote] 500 mg tablet,delayed release (DR/EC) 500 mg PO BID Rx Instructions: 500mg in the am 1000mg in the pm Discharge Instructions Additional Instructions: [facility] Colonoscopy Post- Op Instructions Instructions for Everyone who is given Anesthesia: For your safety, please do the following for the next twenty-four (24) hours: *Do Not operate a motor vehicle (car, truck, motorcycle, etc.) *Do Not drink alcoholic beverages or use any recreational drugs for the first 24 hours or while taking pain medications. The medications in your body may have a reaction that can be dangerous. *Do Not make any important decisions or sign any important papers. Findings: Diverticula make sure you are moving your bowels on a regular basis and not straining to go to the bathroom. If you find you are having problems with constipation that it is recommended you start a fiber product daily such as Metamucil multiple polyps Follow up: My office will send you a letter in 2 to 3 weeks time and when to repeat the colonoscopy. Somewhere between 3 to 5 years. 1. No lifting over 20 pounds or strenuous activity for the first 24 hours after your procedure. After 24 hours there are no restrictions on your activity but you may feel fatigued for a few days. 2. After you arrive home you may have a light meal and return to your normal diet as you can tolerate it without feeling sick to your stomach. 3. You may have a bloated, gaseous feeling in your belly (abdomen) after a colonoscopy. Passing gas and belching will help. Walking or lying down on your left side with your knees flexed may relieve the discomfort. Call the office at [phone] (Office) or [phone] (Hospital) right away if you notice any of the following: a.Vomiting of blood or ?coffee ground stools?. b.Rectal bleeding 1Tbsp, blood clots or continuous bleeding. c.Severe belly (abdominal) pain. d.A hard distended belly (abdomen) and an inability to pass gas. 4. Please don?t expect to have a normal BM (bowel movement) for 2-3 days after your procedure. 5. If there are questions regarding the findings of your procedure, please contact your doctor 6. If you are unable to contact your doctor with a problem, contact the hospital at [phone]. 7. Continue all your regular medications unless directed otherwise. I understand the above instructions and have no questions. Signature of Patient or Adult Escort Name of Responsible Adult Escort Signature of Nurse Date/Time Stand Alone Forms: Anesthesia Discharge Inst., Fabio White (DSU) Activity:: see above Diet:: see above Discharge Orders Discharge Orders: Discharge Order (Routine); Ordered 01/02/24 Ordered By: Hazel Fermin DS: Diagnosis Discharge Diagnosis (1) Screening for colon cancer: Status: Acute Asessment and Plan: The patient is seen and examined after their colonoscopy.? The patient has been able to pass gas.? They are not having abdominal pain.? They have been able to tolerate liquids and a snack.? They do not have any nausea or vomiting.? They are not having any chest pain or shortness of breath.??? They are not having any rectal bleeding. Their vital signs have been stable-see nursing notes. We discussed findings during their colonoscopy, and any biopsies that were done/polyps that were removed. The patient will be sent a letter with any biopsy results, and when to repeat the colonoscopy.-see discharge instructions. Patient was given explicit instructions to follow-up regarding colonoscopy-refer to discharge instructions.? We reviewed resumption of medications. Patient verbalized understanding and discharged in stable and satisfactory condition- See nursing notes. (2) Psychosis: (3) Schizoaffective disorder: (4) Bipolar disorder: (5) ADHD: (6) Family history of colon cancer: (7) History of traumatic brain injury: (8) Smoker: (9) Diverticula of colon: Status: Acute (10) Adenomatous colon polyp: Status: Acute
--- NOTE | 2024-01-01 23:08 | COLE_ITS ---
Date of service: 01/02/24 Time of Service: 11:05 Colonoscopy Report Date of procedure: 01/02/24 Pre-op diagnosis general: twin has crc Post-op diagnosis procedure note: other (Polyps and diverticula) Surgeon: Hazel Fermin Anesthesia Type: General:No Airway Estimated blood loss (mL): 1 Pathology: other Complications: None Disposition: same day Prep: Miralax/Dulcolax Procedure Description: After informed consent was obtained, explaining risks of the procedure, including but not limits to: bleeding, infections, complications of anesthesia, perforations (which may require antibiotics and /or surgery and stay in the hospital), and abdominal pain/cramping. The patient was taken to the procedure room and placed in a left decubitous position. Monitors were applied and a time out was done. The patients name, date of , procedure, allergies to medications and metal in their body was reviewed. The patient was then sedated. Once sedated and comfortable a rectal exam was done. External exam was normal. Internal exam revealed a normal sphincter tone and no palpable masses. The prostate no palpable masses The previously lubricated Olympus scope was then introduced (see RN notes for scope number) and retrofelexed. No internal hemorrhoids were identified. The scope was then advanced to the cecum without difficulty. The TI and appendiceal orifice were identified. Patient did not have a good prep. The mendoza are still coated with stool. 2 L of fluid is used to irrigate the colon. Lesions less than 0.5 cm may have been missed the scope was then slowly retracted over minutes back into the rectum. Polyps: A flat, .75cm polyp was found at 30 and 20 cm.. This was removed with a cold biting forceps. He has a pedunculated 0.75 cm polyp in the rectum that is removed with a cold snare all of the specimen was retrieved. This will be sent to pathology. There is no bleeding noted from the polypectomy site. Diverticula: pt had a small amount of small mouthed diverticula in the sigmoid colon. There were no signs of act sabiha bleeding or infection. The mucosa is pink and healthy w/ a normal vascular pattern. The scope was removed, and the patient was woken up and taken back to Same day surgery in stable condition. The patient tolerated the procedure well and there were no immediate complications. Follow up: The patient should follow up in 3-5 years, unless they develop changes in bowel habits or other new gastrointestinal complaints. [place] Bowel Prep [place] Bowel Prep Right Colon: 1 Left Colon: 1 Transverse Colon: 2 Total Score: 4
--- NOTE | 2024-01-02 06:06 | W.ANESPRE ---
General Info Date of Service Date Performed: 01/02/24 Height: 5 ft 7 in Weight: 62.142 kg Body Mass Index (BMI): 21.4 Surgical Procedure: Operation Date: 01/02/24 09:50 Proposed Procedure Side Surgeon alexandra Fermin, Meds Allergies and Home Medications Allergies Allergy/AdvReac Type Severity Reaction Status Date / Time No Known Allergies Allergy Unverified 01/02/24 09:25 Home Medication ?Medication ?Instructions ?Recorded quetiapine 100 mg tablet 100 mg PO QHS 01/18/20 acetaminophen 325 mg capsule 650 mg PO Q4H PRN 08/31/21 bupropion HCl 150 mg 24 hr tablet, 300 mg PO QAM 08/31/21 extended release cyclobenzaprine 10 mg tablet 10 mg PO TID PRN 08/31/21 lurasidone 80 mg tablet (Latuda) 80 mg PO DAILY 08/31/21 valproic acid 250 mg capsule 500 mg PO DAILY 08/31/21 mirtazapine 45 mg tablet 15 mg PO QHS 08/08/23 divalproex 500 mg tablet,delayed 500 mg PO BID 11/27/23 release (Depakote) Current Visit Medications: Current Medications Generic Name Dose Route Start Last Admin Trade Name Freq PRN Reason Stop Dose Admin Hyoscyamine Sulfate 0.125 mg 01/02/24 11:06 Hyoscyamine 0.125 Mg Sl/Oral/Chew SL 02/01/24 11:05 DIRECTED PRN Ringer's Solution 1,000 mls @ 80 mls/hr 01/02/24 06:00 IV 01/02/24 23:59 [facility] IV Miscellaneous Supplies 1 each 01/02/24 06:00 Iv Access IV 01/02/24 23:59 DIRECTED RANDY Ondansetron HCl 4 mg 01/02/24 11:06 Ondansetron 4 Mg/2 Ml Vial IVP 02/01/24 11:05 Q4H PRN PRN Nausea / Vomiting Sodium Chloride 0 ml 01/02/24 06:00 Normal Saline Flush 10 Ml Syr IV 01/02/24 23:59 PRN PRN Sodium Chloride 0 ml 01/02/24 06:00 Normal Saline 10 Ml Vial IJ 01/02/24 23:59 DIRECTED PRN Sterile Water 0 ml 01/02/24 06:00 Water,Injection,Sterile 10 Ml Vial IJ 01/02/24 23:59 DIRECTED PRN PFSH Active Problems Active Problems: Problem Status Onset Code Screening for colon cancer Acute Z12.11 Medical History Medical History Depression Anxiety Brachial plexus neuropathy History of cigarette smoking Chronic low back pain Musculoskeletal pain Erectile dysfunction Family history of colon cancer Sister diagnosed in her 60's Smoker Thyroid mass Bilateral rales ADHD Fracture of skull and face bones with routine healing History of traumatic brain injury pt. brother unsure Bipolar disorder Schizoaffective disorder Psychosis Cervical spondylosis without myelopathy Surgical History Surgical History S/P percutaneous endoscopic gastrostomy (PEG) tube placement 2-3 years ago for 1 month in coma History of fusion of cervical spine Tobacco Smoking/Tobacco Use Status: Current every day Tobacco Type: cigarettes Alcohol Alcohol Intake: current Substance Use Substance use: Daily Substance use type: marijuana Vital Signs and Lab Results Vital Signs Most Recent Vital Signs in EMR: Temp Pulse Resp BP Pulse Ox 36.1 C L 87 20 109/79 98 01/02/24 09:29 01/02/24 09:29 01/02/24 09:29 01/02/24 09:29 01/02/24 09:29 Lab Results Blood Type / Crossmatch: No Data to Display Complete Blood Count: No Data to Display Complete Metabolic Panel: No Data to Display Liver Function Panel: No Data to Display Coagulation Panel: No Data to Display Cardiac Panel: No Data to Display Arterial Blood Gas: No Data to Display Venous Blood Gas: No Data to Display Pancreas Panel: No Data to Display Thyroid Panel: No Data to Display Infectious Disease: No Data to Display Blood Cultures: No Data to Display Toxicology Panel: No Data to Display Anesthesia Assessment and Plan Anesthesia History Personal History: No History of Anesthesia Complications Family History: No Family History of Anesthesia Complications Exercise Tolerance Exercise Tolerance: Metabolic Equivalents>4 Pertinent Negatives Pertinent Negatives: No Symptoms of GERD, No Major Cardiovascular Symptoms or Complaints and No Major Pulmonary Symptoms or Complaints Cardiac & Pulmonary Exam Cardiac Exam: Normal S1/S2 Heart Sounds Pulmonary Exam: Clear Bilateral Breath Sounds Implantable Cardiac Device Does patient have a Pacemaker or an ICD?: No Airway Exam Known Difficult Airway: No Mallampati Class: 3 Mouth Opening: Normal (> 3cm) Thyromental Distance: Greater than 3 cm Neck Range of Motion: Full ROM Neck Circumference: Normal Teeth Condition: Normal Dentition and Loose or Chipped (one missing, one broken, none loose per pt) ASA Classification ASA Score: ASA 3 Emergency Case?: No NPO Status NPO Status: NPO Clears >2 hours, Solids >8 hours Anesthesia Plan Resuscitation Status: Full Code Anesthesia Technique: General Anesthesia Airway Planned: Natural Airway Monitors Used: Standard Monitors Preoperative Comments:: 52 y/o male with history of bipolar disorder, schizoaffective disorder, TBI, anxiety and depression presents for colonoscopy screening. He has a family history of colon cancer in his twin brother, whom was dx earlier this year at the age of 50.
[2024-01-02 09:29] VITALS: BP 109/79; PULSE 87; RESP 20; TEMP 36.1; O2SAT 98
[2024-01-02] MEDS: Lactated Ringers 1,000 ML 80 ML IV (09:45)
[2024-01-02 10:07] VITALS: BMI 21.4
--- NOTE | 2024-01-02 10:36 | BOWEL_PTH ---
PATIENT: Preston Arciniega LOC: [facility] U#:[id number] AGE/SX: 53/M ROOM: RE01/02/[address]: Hazel Fermin : 1970 BED: DIS: 01/02/2024 SPEC #: [id number] RECD: 01/02/24 12:51 STATUS: ANGELLA RE #: [id number] SHIRA: 01/02/24 10:[address]: Hazel Fermin DEPT: Surgical Specimen RECD BY: Mag Will ENTERED: 01/02/24 12:52 SP TYPE: Bowel OTHR DR: Regla Avila Tissues: 1 - BIOPSY BOWEL 2 - BIOPSY BOWEL 3 - BIOPSY BOWEL Procedures: GROSS AND MICRO LEVEL 4 Comments: [id number]
[2024-01-02 10:55] VITALS: BP 136/91; PULSE 78; RESP 16; TEMP 36; O2SAT 98
--- NOTE | 2024-01-02 11:08 | HPE_ITS ---
Date of service: 01/02/24 Time of Service: 10:05 Assessment and Plan Assessment and plan (1) Screening for colon cancer: Status: Acute (2) Family history of colon cancer: Assessment and plan: Plan: Colonoscopy w/ general & natural airway. Informed consent is obtained for the procedural (explained in simple layman's terms that?the pt and/or family could understand) explaining risks vs benefits and alternatives to the procedure and consequences if we do not do the procedure and need/rational for the procedure. Risks include but are not limited to: bleeding, infection, perforation of colon.? This would necessitate emergency surgery to repair the damage w/ possible ostomy; and other associated complications w/ the required surgery. ? Also complications of anesthesia including aspiration, FL/CVA/, inability to complete the procedure. This document was created with voice activated software and may contain errors. 15 mins spent in direct pt care and 10 in non face to face time History of Present Illness Narrative: Patient is here today for colonoscopy for family history of colon cancer.??? They completed a bowel prep; resulting effluent is thick and brown in color.? They not having any chest pain or shortness of breath, currently.? They are not experiencing any fever or chills.? They deny any productive cough or upper respiratory tract infection signs or symptoms.? They are not having abdominal pain, or nausea and vomiting.? They have not had any changes in medications, past medical history or past surgical history since previously being seen in the office. They have not had any accidents or have been in the ER since the clinic pre-operative evaluation. ??I reviewed the procedure with the patient today, including risks and benefits of the procedure, and what they could expect at home for recovery.? All questions are answered to the patient?s satisfaction today, and they are stable to proceed with the proposed procedure. The patient is here for Colonoscopy pre-op. He has a family history of colon cancer in his twin brother, whom was dx earlier this year at the age of 50. He has not had any bowel habit changes. -Discussed colonoscopy bowel prep as well as the procedure. Discussed possible complications of the procedure to include bleeding, pain, perforation, missed small lesion/polyp, sore throat, aspiration and adverse reaction to the medications. Questions were answered to patient?s satisfaction. No guarantees were implied or given. Anesthesia: general (without airway) Previous surgical intolerances: None Previous surgical complications: None Pulmonary risk factors: None PFT's: None Planned procedure: Yes Sleep apnea risks: No Can climb one flight of stairs (12-13 steps) in less than 30 seconds without stopping and without symptoms: Yes The surgery proposed for this patient is: Low risk Active cardiac conditions: None ECHO: None Stress Test: None Active risk factors: None ASA (acetylsalicylic acid):No Beta blockers: No Anti-coagulation: N/A Medications to be held: All vitamins and supplements x 5 days prior. 52 y/o male with history of bipolar disorder, schizoaffective disorder, TBI, anxiety and depression presents for colonoscopy screening pre-op. He has a family history of colon cancer in his twin brother, whom was dx earlier this year at the age of 50. He denies any changes in bowel habits including bloody or black tarry stools, abdominal pain, diarrhea or constipation. He denies constitutional symptoms. He denies chest pain, palpitations, dyspnea or dyspnea with exertion. He denies prior history or family history of adverse reactions or complications with anesthesia. The patient denies any history of stroke, FL, seizures, bleeding or clotting disorders. He denies having any implanted metal in his body. Review of Systems All systems reviewed & are unremarkable except as noted in HPI and below PFSH All Active Problems Adenomatous colon polyp (Acute) Diverticula of colon (Acute) Screening for colon cancer (Acute) Medical History Depression Anxiety Brachial plexus neuropathy History of cigarette smoking Chronic low back pain Musculoskeletal pain Erectile dysfunction Family history of colon cancer Sister diagnosed in her 60's Smoker Thyroid mass Bilateral rales ADHD Fracture of skull and face bones with routine healing History of traumatic brain injury pt. brother unsure Bipolar disorder Schizoaffective disorder Psychosis Cervical spondylosis without myelopathy Surgical History S/P percutaneous endoscopic gastrostomy (PEG) tube placement 2-3 years ago for 1 month in coma History of fusion of cervical spine Social History Smoking/Tobacco Use Status: Current every day Tobacco Type: cigarettes Smoking risk assessment performed?: Yes Alcohol Intake: current Alcohol Intake frequency: a few times a month Alcohol type: beer Drug use: Daily Substance use type: marijuana Details: alcohol: 1 month, marijuana: t-2, joint Housing: apartment Current gender identity: male Do you feel safe at home: Yes Do you feel safe in your relationship?: Yes Meds Allergies and Home Medications Allergies Allergy/AdvReac Type Severity Reaction Status Date / Time No Known Allergies Allergy Unverified 01/02/24 09:25 Home Medications ?Medication ?Instructions ?Recorded ?Confirmed ?Type quetiapine 100 mg tablet 100 mg PO QHS 01/18/20 01/02/24 History acetaminophen 325 mg capsule 650 mg PO Q4H PRN 08/31/21 01/02/24 History bupropion HCl 150 mg 24 hr tablet, 300 mg PO QAM 08/31/21 01/02/24 History extended release cyclobenzaprine 10 mg tablet 10 mg PO TID PRN 08/31/21 01/02/24 History lurasidone 80 mg tablet (Latuda) 80 mg PO DAILY 08/31/21 01/02/24 History valproic acid 250 mg capsule 500 mg PO DAILY 08/31/21 01/02/24 History mirtazapine 45 mg tablet 15 mg PO QHS 08/08/23 01/02/24 History divalproex 500 mg tablet,delayed 500 mg PO BID 11/27/23 01/02/24 History release (Depakote) Exam Narrative Exam Narrative: PHYSICAL EXAM GENERAL APPEARANCE: Alert, healthy appearance, oriented, x 3,? in no acute distress HYDRATION: Well hydrated HEAD, EYES, EARS, NECK, THROAT: Head is normocephalic, pupils equal, round, reactive to light and accommodation, ocular movement intact, sclera clear and no jaundice. ?Dentition intact. LUNGS: normal respiration/normal chest excursion. ?Clear to auscultation bilaterally. ?No wheeze. ?HEART: Regular rate and rhythm. no murmurs EXTREMITY: No edema or cyanosis.? no leg pain, redness, swelling.? ABDOMEN: soft and non-tender to palpation.? Normal bowel sounds.? No hernias.? Patient has had a PEG tube in the past. Otherwise no abdominal surgeries. Results Last Vital Signs Temp 36 C L 01/02/24 10:55 Pulse 78 01/02/24 10:55 Resp 16 01/02/24 10:55 BP 136/91 H 01/02/24 10:55 Pulse Ox 98 01/02/24 10:55 Time Spent Time spent with Patient: <40 minutes Time was spent: preparing to see the patient(eg.review tests), obtaining and/or reviewing separately otained hiistory, ordering medications,tests, procedures, referring, communicating with other health animal care attendant, indepentently interpreting results, counseling the patient, care coordination and other
--- NOTE | 2024-01-02 11:10 | W.ANESPOSTOP ---
Postoperative Evaluation Date, Time and Location Date Performed: 01/02/24 Time Performed: 11:10 Patient Location: Day Surgery Unit Vital Signs Most Recent Imported Vital Signs: Most Recent Vital Signs Temp Pulse Resp BP Pulse Ox 36 C L 78 16 136/91 H 98 01/02/24 10:55 01/02/24 10:55 01/02/24 10:55 01/02/24 10:55 01/02/24 10:55 Pain Score Most Recent Pain Score: Most Recent Pain Score Pain Level 0 01/02/24 10:55 Assessment Mental Status: Awake (Alert & Oriented to Patient Baseline) Airway and Respiratory Function: Patent airway with normal (patient baseline) respiratory exam Cardiovascular Function: Hemodynamically Stable Hydration Status: Adequately Hydrated Nausea & Vomiting: No Nausea or Vomiting Pain: Pt. Denies Any Pain Peripheral Nerve Block: Patient did not receive a nerve block
[2024-01-02 11:22] VITALS: BP 120/91; PULSE 82; RESP 16; TEMP 36.2; O2SAT 98
== END 2024-01-02 11:40 | disposition home or self-care (01) ==
PROVIDERS: PCP Nurse Practitioner Family; Visit Provider Surgery
PROC: 0DJD8ZZ Inspection of Lower Intestinal Tract, Via Natural or Artificial Opening Endoscopic (ICD-10-PCS; CPT 45378; principal; 2024-01-02 09:45)
DX: Z12.11 Encounter for screening for malignant neoplasm of colon (principal); Z80.0 Family history of malignant neoplasm of digestive organs; D12.8 Benign neoplasm of rectum; K57.30 Diverticulosis of large intestine without perforation or abscess without bleeding; D12.5 Benign neoplasm of sigmoid colon
CPT/HCPCS: 45385; 45380; 88305; J2001; J2704

== ENCOUNTER 2024-07-27 01:44 | Outpatient (CLI) | payer MEDICARE, SELFPAY ==
[2024-07-27 10:46] LABS: Calculated LDL 82 mg/dL (<100); Cholesterol 142 mg/dL (<200); HDL Cholesterol 51 mg/dL (>or=40); Triglyceride 47 mg/dL (<150); VALPROIC ACID 59.1 ug/mL
== END 2024-07-27 01:45 | disposition home or self-care (01) ==
LOC: LBO 01:44
PROVIDERS: PCP Nurse Practitioner Family; Visit Provider Nurse Practitioner Psychiatric/Mental Health
DX: Z79.899 Other long term (current) drug therapy (principal); F25.0 Schizoaffective disorder, bipolar type; F90.2 Attention-deficit hyperactivity disorder, combined type
CPT/HCPCS: 36415; 80061; 80164; 83036